=== PATIENT | female | born 1935 | race African-American/Black ===

== ENCOUNTER 2016-08-14 08:30 | Inpatient (IN) | payer BC, OTHER ==
--- NOTE | 2016-08-14 09:05 | PDOC ---
[id number] 4d No Limitations - History of Present Illness Initial Comments: 08/14/16 09:40 The patient is an 81 year old female, with a significant past medical history of anemia, diabetes, hypertension, hypercholesterolemia, and multinodular thyroid goiter, who presents to the emergency department complaining of rectal bleeding for approximately 2 days. The patient reports bright red bloody clots upon bowel movements since yesterday. Today, the patient reports hematochezia continues every time she has a bowel movement. The patient states she has experienced blood clots in the past, secondary to diverticular bleed, for which she followed-up with Dr. Rojas and was placed on coumadin. 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 The patient reports she is currently on coumadin. The patient denies any abdominal pain, nausea, vomiting, diarrhea, or constipation. The patient denies any dysuria, hematuria, frequency, or urgency. The patient denies any fever, chills, cough, headache, or dizziness. The patient denies any chest pain, shortness of breath, diaphoresis, or palpitations. The patient denies any recent travel or sicks contacts. Allergies: Lactose. Past Surgical History: Hysterectomy, (x5) Social History: Non-smoker. Denies alcohol or drug use. PCP: Dr. Whaley Bus Aide: Dr. Rojas <Dariana Colbert - Last Filed: 08/14/16 10:24> <Alisia Salazar - Last Filed: 08/14/16 12:29> - General Chief Complaint: Rectal Bleed Stated Complaint: RECTAL BLEEDING Time Seen by Provider: 08/14/16 08:59 Past History <Dariana Colbert - Last Filed: 08/14/16 10:24> - Past Medical History Anemia: Yes Diabetes: Yes HTN: Yes Hypercholesterolemia: Yes Suicide Attempt (Hx): No - Immunization History Immunization Up to Date: Yes - Psycho/Social/Smoking Cessation Hx Anxiety: No Suicidal Ideation: No Smoking Status: No Smoking History: Never smoked Have you smoked in the past 12 months: No Number of Cigarettes Smoked Daily: 0 Hx Alcohol Use: No Drug/Substance Use Hx: No Substance Use Type: None Hx Substance Use Treatment: No <Alisia Salazar Last Filed: 08/14/16 12:29> - Past Medical History Allergies/Adverse Reactions: Allergies Allergy/AdvReac Type Severity Reaction Status Date / Time lactose AdvReac Severe Verified 08/14/16 08:36 Home Medications: Ambulatory Orders Aspirin [ASA -] 81 mg PO DAILY #0 tab.chew 12/14/11 Folic Acid - 1 mg PO DAILY 07/06/13 Atorvastatin Ca [Lipitor] 10 mg PO HS 07/27/14 Pregabalin [Lyrica -] 50 mg PO TID #90 capsule MDD 3 10/17/15 Amlodipine Besylate [Norvasc -] 10 mg PO DAILY #30 tablet 02/23/16 Glimepiride [Amaryl] 4 mg PO DAILY 08/14/16 Warfarin Na [Coumadin -] 5 mg PO DAILY@1800 08/14/16 Review of Systems - Review of Systems Able to Perform ROS?: Yes Comments:: 08/14/16 09:40 GENERAL/CONSTITUTIONAL: No fever or chills. No weakness. HEAD, EYES, EARS, NOSE AND THROAT: No change in vision. No ear pain or discharge. No sore throat. CARDIOVASCULAR: No chest pain or shortness of breath. RESPIRATORY: No cough, wheezing, or hemoptysis. GASTROINTESTINAL: +Hematochezia(clots). No nausea, vomiting, diarrhea or constipation. GENITOURINARY: No dysuria, frequency, or change in urination. MUSCULOSKELETAL: No joint or muscle swelling or pain. No neck or back pain. SKIN: No rash NEUROLOGIC: No headache, vertigo, loss of consciousness, or change in strength/ sensation. ENDOCRINE: No increased thirst. No abnormal weight change. HEMATOLOGIC/LYMPHATIC: No anemia, easy bleeding, or history of blood clots. ALLERGIC/IMMUNOLOGIC: No hives or skin allergy. <Dariana Colbert - Last Filed: 08/14/16 10:24> *Physical Exam - Vital Signs Last Vital Signs Temp Pulse Resp BP Pulse Ox 98 F 74 19 170/86 96 08/14/16 08:36 08/14/16 08:36 08/14/16 08:36 08/14/16 08:36 08/14/16 08:36 <Dariana Colbert - Last Filed: 08/14/16 10:24> - Vital Signs Last Vital Signs Temp Pulse Resp BP Pulse Ox 98 F 74 19 170/86 96 08/14/16 08:36 08/14/16 08:36 08/14/16 08:36 08/14/16 08:36 08/14/16 08:36 - Physical Exam Comments: GENERAL: Awake, alert, and fully oriented, in no acute distress HEAD: No signs of trauma EYES: PERRLA, EOMI, sclera anicteric, conjunctiva clear ENT: Auricles normal inspection, hearing grossly normal, nares patent, oropharynx clear without exudates. Moist mucosa NECK: Normal ROM, supple, no lymphadenopathy, JVD, or masses LUNGS: Breath sounds equal, clear to auscultation bilaterally. No wheezes, and no crackles HEART: Regular rate and rhythm, normal S1 and S2, no murmurs, rubs or gallops ABDOMEN: Soft, nontender, normoactive bowel sounds. No guarding, no rebound. No masses EXTREMITIES: Normal range of motion, no edema. No clubbing or cyanosis. No cords, erythema, or tenderness NEUROLOGICAL: Cranial nerves II through XII grossly intact. Normal speech, normal gait SKIN: Warm, Dry, normal turgor, no rashes or lesions noted. RECTAL: No external lesions. +Scant melanotic stool in the vault. Nontender. No hemorrhoids. <Alisia Salazar - Last Filed: 08/14/16 12:29> ED Treatment Course - LABORATORY CBC & Chemistry Diagram: 08/14/16 09:20 08/14/16 09:20 - ADDITIONAL ORDERS Additional order review: Laboratory Results 08/14/16 09:10 Stool Occult Blood Positive <Dariana Colbert - Last Filed: 08/14/16 10:24> - LABORATORY CBC & Chemistry Diagram: 08/14/16 09:20 08/14/16 09:20 <Alisia Salazar - Last Filed: 08/14/16 12:29> Medical Decision Making - Medical Decision Making 08/14/16 10:19 First call placed to Dr. Rodriguez at 10:19. Awaiting call back from Dr. Swan. Case discussed with Dr. Swan at 10:22. <Dariana Colbert - Last Filed: 08/14/16 10:24> - Medical Decision Making H&H stable, however, patient is high risk, elderly, on coumadin with history prior diverticular bleed. Will place consult with Dr. Rojas, who has seen her in the past. Admitted to Dr. Swan, covering Dr. Whaley. <Alisia Salazar - Last Filed: 08/14/16 12:29> *DC/Admit/Observation/Transfer - Attestations Scribe Attestion: 08/14/16 09:41 Documentation prepared by Dariana Colbert, acting as emergency medical dispatcher for Alisia Salazar MD. <Dariana Colbert - Last Filed: 08/14/16 10:24> - Discharge Dispostion Admit: Yes <Alisia Salazar - Last Filed: 08/14/16 12:29> Diagnosis at time of Disposition: Rectal bleed, Melena - Discharge Dispostion Condition at time of disposition: Guarded - Referrals
[2016-08-14 09:39] LABS: BASOPHIL 1.3 % (0-2.0); EOSINOPHIL 5.2 % (0-4.5); MCH 24.3 pg (25.7-33.7); MCHC 31.9 g/dl (32.0-36.0); MEAN CELL VOLUME 76.4 fl (80-96); MEAN PLT VOLUME 8.8 fl (7.5-11.1); NEUTROPHILS 45.7 % (42.8-82.8); PLATELET COUNT 211 K/MM3 (134-434); RDW 15.8 % (11.6-15.6); WHITE BLOOD COUNT 3.5 K/mm3 (4.0-10.0)
[2016-08-14 09:53] LABS: INR 2.54 (0.82-1.09); PROTHROMBIN TIME (PATIENT) 28.5 SEC (9.98-11.88)
[2016-08-14 10:03] LABS: ALBUMIN 3.5 g/dl (3.4-5.0); CREATININE 1.1 mg/dL (0.55-1.02)
[2016-08-14 10:04] LABS: BILIRUBIN,TOTAL 0.9 mg/dL (0.2-1.0); TOT PROT 7.6 g/dl (6.4-8.2)
--- NOTE | 2016-08-14 11:56 | HP ---
Admitting History and Physical - Primary Care Physician PCP: Darlin Rodriguez - Admission Chief Complaint: RECTAL BLEED X 1 DAY History of Present Illness: The patient is an 81 year old female, with a significant past medical history of anemia, diabetes, hypertension, hypercholesterolemia, and multinodular thyroid goiter, who presents to the emergency department complaining of rectal bleeding for approximately 2 days. The patient reports bright red bloody clots upon bowel movements since yesterday. Today, the patient reports hematochezia continues every time she has a bowel movement. The patient states she has experienced blood clots in the past, secondary to diverticular bleed, for which she followed-up with Dr. Rojas and was placed on coumadin. 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 The patient reports she is currently on coumadin. The patient denies any abdominal pain, nausea, vomiting, diarrhea, or constipation. The patient denies any dysuria, hematuria, frequency, or urgency. The patient denies any fever, chills, cough, headache, or dizziness. The patient denies any chest pain, shortness of breath, diaphoresis, or palpitations. The patient denies any recent travel or sicks contacts. Allergies: Lactose. Past Surgical History: Hysterectomy, (x5) Social History: Non-smoker. Denies alcohol or drug use. PCP: Dr. Whaley Oncology Admin: Dr. Rojas History Source: Patient - Past Medical History Cardiovascular: Yes: Pulmonary Hypertension, CAD (reported CAD), HTN, Hyperlipdemia, Aortic Insufficiency Pulmonary: Yes: Pulmonary Embolus (following ~50 years ago, and again in 2014 while hospitalzied for shingles per patient's report) Gastrointestinal: Yes: GERD Endocrine: Yes: Diabetes Mellitus, Other (mutlinodular goitre) - Past Surgical History Past Surgical History: Yes: (x5), Hysterectomy (JANINE ~ 40 years ago) - Smoking History Smoking history: Never smoked Have you smoked in the past 12 months: No Aproximately how many cigarettes per day: 0 - Alcohol/Substance Use Hx Alcohol Use: No History of Substance Use: reports: None Home Medications - Allergies Allergies/Adverse Reactions: Allergies Allergy/AdvReac Type Severity Reaction Status Date / Time lactose AdvReac Severe Verified 08/14/16 08:36 - Home Medications Home Medications: Ambulatory Orders Aspirin [ASA -] 81 mg PO DAILY #0 tab.chew 12/14/11 Folic Acid - 1 mg PO DAILY 07/06/13 Atorvastatin Ca [Lipitor] 10 mg PO HS 07/27/14 Pregabalin [Lyrica -] 50 mg PO TID #90 capsule MDD 3 10/17/15 Amlodipine Besylate [Norvasc -] 10 mg PO DAILY #30 tablet 02/23/16 Warfarin Na [Coumadin -] 5 mg PO DAILY@1800 08/14/16 Family Disease History - Family Disease History Family Disease History: Diabetes: Sister, Heart Disease: Brother, [place]: Father ( colon cancer), Sister Review of Systems - Review of Systems Constitutional: reports: No Symptoms Eyes: reports: No Symptoms HENT: reports: No Symptoms Neck: reports: No Symptoms Cardiovascular: reports: No Symptoms Respiratory: reports: No Symptoms Gastrointestinal: reports: Rectal Bleeding Genitourinary: reports: No Symptoms Musculoskeletal: reports: No Symptoms Integumentary: reports: No Symptoms Neurological: reports: No Symptoms Endocrine: reports: No Symptoms Hematology/Lymphatic: reports: No Symptoms Psychiatric: reports: No Symptoms Physical Examination Vital Signs: Vital Signs Temperature 98 F 08/14/16 08:36 Pulse Rate 74 08/14/16 08:36 Respiratory Rate 19 08/14/16 08:36 Blood Pressure 170/86 08/14/16 08:36 O2 Sat by Pulse Oximetry (%) 96 08/14/16 08:36 Constitutional: Yes: Mild Distress Eyes: Yes: WNL HENT: Yes: WNL Neck: Yes: WNL Cardiovascular: Yes: Pulse Irregular Respiratory: Yes: WNL Gastrointestinal: Yes: WNL Renal/: Yes: WNL Musculoskeletal: Yes: WNL Extremities: Yes: WNL Edema: No Peripheral Pulses WNL: Yes Integumentary: Yes: WNL Wound/Incision: Yes: Clean/Dry Neurological: Yes: WNL ...Motor Strength: WNL Psychiatric: Yes: WNL Problem List - Problems (1) Melena Code(s): K92.1 - MELENA (2) Rectal bleed Code(s): K62.5 - HEMORRHAGE OF ANUS AND RECTUM (3) Anemia Code(s): D64.9 - ANEMIA, UNSPECIFIED (4) CAD (coronary artery disease) Code(s): I25.10 - ATHSCL HEART DISEASE OF [place] CORONARY ARTERY W/O ANG PCTRS (5) Diabetes mellitus Code(s): E11.9 - TYPE 2 DIABETES MELLITUS WITHOUT COMPLICATIONS (6) HTN (hypertension) Code(s): I10 - ESSENTIAL (PRIMARY) HYPERTENSION Qualifiers: Assessment/Plan DISCUSSED WITH GI DR MAGUIRE STOP COUMADIN HEPARIN IV GI WORKUP NEXT WEEK FULL DIET RESTART ALL MEDS STOOL FOR OVA AND PARASITE AND WBC
[2016-08-14] MEDS ORDERED: ACETAMINOPHEN 325 MG TABLET (FP) PO PRN (12:00)
[2016-08-14] MEDS: PREGABALIN 50 MG CAPSULE PO SCH ×2 (13:54→22:19)
[2016-08-14] MEDS: amLODIPine BESYLATE 10 MG TABLET (FP) PO SCH (13:54)
--- NOTE | 2016-08-14 13:54 | CON.GI ---
Consult Consult Specialty:: GI Referred by:: Dr Swan Reason for Consultation:: GI bleed - History of Present Illness Chief Complaint: melena History of Present Illness: 81 F with h/o anemia, DM, HTN, HLD, goiter admitted with a 2 day h/o blood with stool for the past few days. She states her last episode was this AM. On admission, her Hgb was 11. She had a diverticular bleed 2 years ago and had colonoscopy with endoclip placement done with cessation of the bleeding. She had R jugular thombosis in 2016 and has been on coumadin since. coumadin. INR was 2.5 on admission. - Past Medical History Cardio/Vascular: Yes: Pulmonary Hypertension, CAD (reported CAD), HTN, Hyperlipdemia, Aortic Insufficiency Pulmonary: Yes: Pulmonary Embolus (following ~50 years ago, and again in 2013 while hospitalzied for shingles per patient's report) Gastrointestinal: Yes: GERD Endocrine: Yes: Diabetes Mellitus, Other (mutlinodular goitre) - Past Surgical History Past Surgical History: Yes: (x5), Hysterectomy (JANINE ~ 40 years ago) - Alcohol/Substance Use Hx Alcohol Use: No History of Substance Use: reports: None - Smoking History Smoking history: Never smoked Have you smoked in the past 12 months: No Aproximately how many cigarettes per day: 0 Home Medications - Allergies Allergies/Adverse Reactions: Allergies Allergy/AdvReac Type Severity Reaction Status Date / Time lactose AdvReac Severe Verified 08/14/16 08:36 - Home Medications Home Medications: Ambulatory Orders Aspirin [ASA -] 81 mg PO DAILY #0 tab.chew 12/14/11 Folic Acid - 1 mg PO DAILY 07/06/13 Atorvastatin Ca [Lipitor] 10 mg PO HS 07/27/14 Pregabalin [Lyrica -] 50 mg PO TID #90 capsule MDD 3 10/17/15 Amlodipine Besylate [Norvasc -] 10 mg PO DAILY #30 tablet 02/23/16 Glimepiride [Amaryl] 4 mg PO DAILY 08/14/16 Warfarin Na [Coumadin -] 5 mg PO DAILY@1800 08/14/16 Family Disease History - Family Disease History Family Disease History: Diabetes: Sister, Heart Disease: Brother, CA: Father ( colon cancer), Sister Physical Exam-GI Vital Signs: Vital Signs Temperature 98 F 08/14/16 08:36 Pulse Rate 74 08/14/16 08:36 Respiratory Rate 19 08/14/16 08:36 Blood Pressure 170/86 08/14/16 08:36 O2 Sat by Pulse Oximetry (%) 96 08/14/16 08:36 Constitutional: Yes: Well Nourished, Calm HENT: Yes: Normocephalic Cardiovascular: Yes: Regular Rate and Rhythm Respiratory: Yes: CTA Bilaterally Gastrointestinal Inspection: Yes: WNL ...Auscultate: Yes: Normoactive Bowel Sounds ...Palpate: Yes: Soft. No: Tenderness (in all quadrants) ...Rectal Exam: Yes: Guaiac Positive (in ER) Labs: INR, PTT INR 2.54 (0.82-1.09) H 08/14/16 09:20 CBC, BMP 08/14/16 09:20 08/14/16 09:20 Hepatic Panel Total Bilirubin 0.9 mg/dL (0.2-1.0) D 08/14/16 09:20 AST 16 U/L (15-37) D 08/14/16 09:20 ALT 17 U/L (12-78) D 08/14/16 09:20 Alkaline Phosphatase 91 U/L (45-117) D 08/14/16 09:20 Albumin 3.5 g/dl (3.4-5.0) 08/14/16 09:20 Assessment/Plan No active bleeding at this time. Likely diverticular source. Will manage conservatively for now. No transfusion at this time. If bleeding continues or resumes will need colonoscopy Revert diet to clear liquid at this time as emergent procedure might be necessary.
[2016-08-14] MEDS ORDERED: PANTOPRAZOLE SODIUM 40 MG in SODIUM CHLORIDE 100 ML IVPB SCH (14:15)
[2016-08-14] MEDS: PANTOPRAZOLE SODIUM 40 MG/100 ML PRE-DOCKED IVPB SCH (15:45)
[2016-08-14 17:44] VITALS: BMI 30.2
[2016-08-14 18:13] LABS: BASOPHIL 0.9 % (0-2.0); EOSINOPHIL 4.1 % (0-4.5); MCH 24.4 pg (25.7-33.7); MEAN CELL VOLUME 76.3 fl (80-96); MEAN PLT VOLUME 8.8 fl (7.5-11.1); NEUTROPHILS 39.4 % (42.8-82.8); PLATELET COUNT 215 K/MM3 (134-434); RDW 15.9 % (11.6-15.6); WHITE BLOOD COUNT 3.9 K/mm3 (4.0-10.0)
[2016-08-14] MEDS: ATORVASTATIN CA 20 MG TABLET (FP) PO SCH (22:19)
[2016-08-15] MEDS: GLIMEPIRIDE 4 MG TABLET (FP) PO SCH (06:35)
[2016-08-15 07:33] LABS: MCH 24.4 pg (25.7-33.7); MCHC 31.8 g/dl (32.0-36.0); MEAN CELL VOLUME 76.6 fl (80-96); MEAN PLT VOLUME 8.8 fl (7.5-11.1); PLATELET COUNT 218 K/MM3 (134-434); RDW 16.1 % (11.6-15.6); WHITE BLOOD COUNT 2.9 K/mm3 (4.0-10.0)
[2016-08-15 07:46] LABS: INR 2.23 (0.82-1.09); PROTHROMBIN TIME (PATIENT) 24.9 SEC (9.98-11.88)
[2016-08-15 08:00] LABS: ALBUMIN 3.4 g/dl (3.4-5.0); CALCIUM 8.6 mg/dL (8.5-10.1)
[2016-08-15 08:02] LABS: BILIRUBIN,TOTAL 0.8 mg/dL (0.2-1.0); TOT PROT 6.9 g/dl (6.4-8.2)
[2016-08-15] MEDS: amLODIPine BESYLATE 10 MG TABLET (FP) PO SCH (09:50)
[2016-08-15] MEDS: PANTOPRAZOLE SODIUM 40 MG/100 ML PRE-DOCKED IVPB SCH (09:50)
[2016-08-15] MEDS: PREGABALIN 50 MG CAPSULE PO SCH ×2 (09:50→21:28)
--- NOTE | 2016-08-15 13:20 | PN ---
Progress Note, Physician Chief Complaint: AWAKE ALERT +BM WITH DARK RED BLOOD FOUND IN TOILET TODAY - Current Medication List Current Medications: Active Medications Acetaminophen (Tylenol -) 650 mg PO Q6H PRN PRN Reason: FEVER OR PAIN Amlodipine Besylate (Norvasc -) 10 mg PO DAILY [facility] Last Admin: 08/15/16 09:50 Dose: 10 mg Atorvastatin Calcium (Lipitor -) 20 mg PO HS [facility] Last Admin: 08/14/16 22:19 Dose: 20 mg Glimepiride (Amaryl -) 4 mg PO DAILY@0700 [facility] Last Admin: 08/15/16 06:35 Dose: 4 mg Pantoprazole Sodium (Protonix 40mg Ivpb (Pre-Docked)) 40 mg IVPB DAILY [facility] Last Admin: 08/15/16 09:50 Dose: 40 mg Pregabalin (Lyrica -) 50 mg PO BID [facility] Last Admin: 08/15/16 09:50 Dose: 50 mg - Objective Vital Signs: Vital Signs Temperature 98.6 F 08/15/16 09:39 Pulse Rate 72 08/15/16 09:39 Respiratory Rate 18 08/15/16 09:39 Blood Pressure 138/76 08/15/16 09:39 O2 Sat by Pulse Oximetry (%) 98 08/15/16 09:50 Constitutional: Yes: Mild Distress Eyes: Yes: WNL HENT: Yes: WNL Neck: Yes: WNL Cardiovascular: Yes: Pulse Irregular Respiratory: Yes: WNL Gastrointestinal: Yes: WNL ...Rectal Exam: Yes: Guaiac Positive Genitourinary: Yes: WNL Musculoskeletal: Yes: Muscle Weakness Extremities: Yes: WNL Edema: No Peripheral Pulses WNL: Yes Integumentary: Yes: WNL Wound/Incision: Yes: Clean/Dry Neurological: Yes: WNL ...Motor Strength: WNL Psychiatric: Yes: WNL Labs: CBC, BMP 08/15/16 06:15 08/15/16 06:15 INR, PTT INR 2.23 (0.82-1.09) H 08/15/16 06:15 Problem List - Problems (1) Melena Code(s): K92.1 - MELENA (2) Rectal bleed Code(s): K62.5 - HEMORRHAGE OF ANUS AND RECTUM (3) Anemia Code(s): D64.9 - ANEMIA, UNSPECIFIED (4) CAD (coronary artery disease) Code(s): I25.10 - ATHSCL HEART DISEASE OF [place] CORONARY ARTERY W/O ANG PCTRS (5) Diabetes mellitus Code(s): E11.9 - TYPE 2 DIABETES MELLITUS WITHOUT COMPLICATIONS (6) HTN (hypertension) Code(s): I10 - ESSENTIAL (PRIMARY) HYPERTENSION Qualifiers: Assessment/Plan DISCUSSED WITH GI DR MAGUIRE STOP COUMADIN HEPARIN IV WHEN INR LESS THAN 2.0 GI WORKUP NEXT WEEK CLEAR RESTART ALL MEDS STOOL FOR OVA AND PARASITE AND WBC
[2016-08-15] MEDS ORDERED: HEPARIN INFUSION - 500 ML IVPB SCH (13:30)
[2016-08-15] MEDS: HEPARIN INFUSION - 500 ML IVPB SCH (18:50)
--- NOTE | 2016-08-15 21:22 | EKG ---
Test Reason : Blood Pressure : / mmHG Vent. Rate : 065 BPM Atrial Rate : 065 BPM P-R Int : 202 ms QRS Dur : 074 ms QT Int : 452 ms P-R-T Axes : 028 -18 -05 degrees QTc Int : 470 ms NORMAL SINUS RHYTHM with prolonged AV conduction T-WAVE INVERSION IN ANTERIOR LEADS T WAVE FLATTENING IN INFEROLATERAL LEADS INFERIOR INFARCT , AGE UNDETERMINED ABNORMAL ECG WHEN COMPARED WITH ECG OF 11-FEB-2016 22:23, [place] INTERVAL HAS DECREASED FLAT T WAVES NOW EVIDENT IN LATERAL LEADS Confirmed by LEA MODI, ERIKA ([id number]) on 08/15/2016 9:22:38 PM Referred By: Confirmed By:ERIKA TATE MD
[2016-08-15] MEDS: ATORVASTATIN CA 20 MG TABLET (FP) PO SCH (21:28)
--- NOTE | 2016-08-16 01:49 | CONSULT ---
Consult Consult Specialty:: endocrine Referred by:: dr.rabadi robles Reason for Consultation:: thyroid goiter/niddm - History of Present Illness Chief Complaint: bleeding from stools History of Present Illness: 81 F with h/o anemia, DM, HTN, HLD, goiter admitted with a 2 day h/o blood with stool for the past few days. She states her last episode was this AM. On admission, her Hgb was 11. She had a diverticular bleed 2 years ago and had colonoscopy with endoclip placement done with cessation of the bleeding. She had R jugular thombosis in 2016 and has been on coumadin since. coumadin. INR was 2.5 on admission.denies chest pain,palpitation,cough,fever or chills,denies taking nsaids,or pain relief meds over the counter is always adherent to diet and meds - History Source History Provided By: Patient - Past Medical History Cardio/Vascular: Yes: Pulmonary Hypertension, CAD (reported CAD), HTN, Hyperlipdemia, Aortic Insufficiency Pulmonary: Yes: Pulmonary Embolus (following ~50 years ago, and again in 2013 while hospitalzied for shingles per patient's report) Gastrointestinal: Yes: GERD Endocrine: Yes: Diabetes Mellitus, Other (mutlinodular goitre) - Past Surgical History Past Surgical History: Yes: (x5), Hysterectomy (JANINE ~ 40 years ago) - Alcohol/Substance Use Hx Alcohol Use: No History of Substance Use: reports: None - Smoking History Smoking history: Never smoked Have you smoked in the past 12 months: No Aproximately how many cigarettes per day: 0 Home Medications - Allergies Allergies/Adverse Reactions: Allergies Allergy/AdvReac Type Severity Reaction Status Date / Time lactose AdvReac Severe Verified 08/14/16 08:36 - Home Medications Home Medications: Ambulatory Orders Aspirin [ASA -] 81 mg PO DAILY #0 tab.chew 12/14/11 Folic Acid - 1 mg PO DAILY 07/06/13 Atorvastatin Ca [Lipitor] 10 mg PO HS 07/27/14 Pregabalin [Lyrica -] 50 mg PO TID #90 capsule MDD 3 10/17/15 Amlodipine Besylate [Norvasc -] 10 mg PO DAILY #30 tablet 02/23/16 Glimepiride [Amaryl] 4 mg PO DAILY 08/14/16 Warfarin Na [Coumadin -] 5 mg PO DAILY@1800 08/14/16 Family Disease History - Family Disease History Family Disease History: Diabetes: Sister, Heart Disease: Brother, CA: Father ( colon cancer), Sister Review of Systems - Review of Systems Constitutional: reports: Weakness Eyes: reports: No Symptoms HENT: reports: No Symptoms Neck: reports: No Symptoms Cardiovascular: reports: No Symptoms Respiratory: reports: No Symptoms Gastrointestinal: reports: Indigestion Genitourinary: reports: No Symptoms Breasts: reports: No Symptoms Reported Musculoskeletal: reports: No Symptoms Integumentary: reports: No Symptoms Neurological: reports: No Symptoms Endocrine: reports: No Symptoms Physical Exam Vital Signs: Vital Signs Temperature 98.2 F 08/15/16 21:34 Pulse Rate 68 08/15/16 21:34 Respiratory Rate 20 08/15/16 21:34 Blood Pressure 154/82 08/15/16 21:34 O2 Sat by Pulse Oximetry (%) 98 08/15/16 18:00 Constitutional: Yes: Calm Eyes: Yes: EOM Intact HENT: Yes: Normocephalic Neck: Yes: Thyromegaly Cardiovascular: Yes: Regular Rate and Rhythm, Murmur Respiratory: Yes: Regular Gastrointestinal: Yes: WNL ...Rectal Exam: Yes: Guaiac Positive Renal/: Yes: WNL Breast(s): Yes: WNL Musculoskeletal: Yes: WNL Extremities: Yes: WNL Edema: No Peripheral Pulses WNL: Yes Neurological: Yes: WNL, Alert, Oriented Labs: CBC, BMP 08/15/16 06:15 08/15/16 06:15 Problem List - Problems (1) Melena Code(s): K92.1 - [place]LENA (2) Anemia Code(s): D64.9 - ANEMIA, UNSPECIFIED (3) Goiter diffuse Code(s): E04.9 - NONTOXIC GOITER, UNSPECIFIED (4) Type 2 diabetes mellitus with diabetic neuropathy, unspecified Code(s): E11.40 - TYPE 2 DIABETES MELLITUS WITH DIABETIC NEUROPATHY, UNSP Assessment/Plan Current Active Problems Melena (Acute) Rectal bleed (Acute) thyroid goiter diabetes mellitus niddm/neuropathy hyperglycemia ashd sp/thrombosis jugular vein Abnormal Lab Results 03/05/17 03/05/17 03/05/17 06:15 06:15 06:15 WBC 2.9 L MCV 76.6 L MCHC 31.8 L RDW 16.1 H INR 2.23 H Random Glucose 125 H AST 13 L Laboratory Results - last 24 hr 08/15/16 08/15/16 08/15/16 05:46 06:15 06:15 WBC 2.9 L RBC 4.66 Hgb 11.4 Hct 35.7 MCV 76.6 L MCHC 31.8 L RDW 16.1 H Plt Count 218 MPV 8.8 INR Sodium 142 Potassium 3.8 Chloride 106 Carbon Dioxide 28 Anion Gap 8 BUN 10 Creatinine 1.0 Creat Clearance w eGFR 52.95 POC Glucometer 126 Random Glucose 125 H Calcium 8.6 Total Bilirubin 0.8 AST 13 L ALT 15 Alkaline Phosphatase 80 Total Protein 6.9 Albumin 3.4 08/15/16 06:15 WBC RBC Hgb Hct MCV MCHC RDW Plt Count MPV INR 2.23 H Sodium Potassium Chloride Carbon Dioxide Anion Gap BUN Creatinine Creat Clearance w eGFR POC Glucometer Random Glucose Calcium Total Bilirubin AST ALT Alkaline Phosphatase Total Protein Albumin Current Medications Generic Name Dose Route Start Last Admin Trade Name Freq PRN Reason Stop Dose Admin Acetaminophen 650 mg 08/14/16 12:00 Tylenol - PO Q6H PRN FEVER OR PAIN Amlodipine Besylate 10 mg 08/14/16 12:00 08/15/16 09:50 Norvasc - PO 10 mg DAILY [facility] Administration Atorvastatin Calcium 20 mg 08/14/16 22:00 08/15/16 21:28 Lipitor - PO 20 mg HS [facility] Administration Glimepiride 4 mg 08/15/16 07:00 08/15/16 06:35 Amaryl - PO 4 mg DAILY@0700 [facility] Administration Heparin Sodium/Dextrose 500 mls @ 16 mls/hr 08/15/16 18:30 08/15/16 18:50 Heparin Infusion - IVPB 16 mls/hr TITR [facility] Administration Protocol 800 UNITS/HR Pantoprazole Sodium 40 mg 08/14/16 15:00 08/15/16 09:50 Protonix 40mg Ivpb (Pre-Docked) IVPB 40 mg DAILY [facility] Administration Pregabalin 50 mg 08/14/16 12:00 08/15/16 21:28 Lyrica - PO 50 mg BID [facility] Administration plan: bgm qid novolog coverage continue amaryl 4mg daily gi workup in progress
[2016-08-16] MEDS: INSULIN SLIDING SCALE (NOVOLOG) 1 VIAL SQ SCH ×4 (06:17→21:55)
[2016-08-16] MEDS ORDERED: PT OWN MED DRAWER 7, Y5N ONE (06:18)
[2016-08-16] MEDS: GLIMEPIRIDE 4 MG TABLET (FP) PO SCH (06:19)
[2016-08-16 07:37] LABS: MCH 24.5 pg (25.7-33.7); MCHC 31.9 g/dl (32.0-36.0); MEAN CELL VOLUME 76.7 fl (80-96); MEAN PLT VOLUME 8.8 fl (7.5-11.1); PLATELET COUNT 235 K/MM3 (134-434); RDW 15.3 % (11.6-15.6)
[2016-08-16 08:05] LABS: CREATININE 1.1 mg/dL (0.55-1.02)
--- NOTE | 2016-08-16 08:15 | PN ---
Progress Note, Physician History of Present Illness: ADMITTED WITH MELENA NO PAIN - Current Medication List Current Medications: Active Medications Acetaminophen (Tylenol -) 650 mg PO Q6H PRN PRN Reason: FEVER OR PAIN Amlodipine Besylate (Norvasc -) 10 mg PO DAILY ON LICENSE OF [facility] Last Admin: 08/15/16 09:50 Dose: 10 mg Atorvastatin Calcium (Lipitor -) 20 mg PO HS ON LICENSE OF [facility] Last Admin: 08/15/16 21:28 Dose: 20 mg Glimepiride (Amaryl -) 4 mg PO DAILY@0700 ON LICENSE OF [facility] Last Admin: 08/16/16 06:19 Dose: 4 mg Heparin Sodium/Dextrose (Heparin Infusion -) 500 mls @ 16 mls/hr IVPB TITR [facility] ; 800 UNITS/HR PRN Reason: Protocol Last Admin: 08/15/16 18:50 Dose: 16 mls/hr Insulin Aspart (Novolog Vial Sliding Scale -) 1 vial SQ ACHS ON LICENSE OF [facility] PRN Reason: Protocol Last Admin: 08/16/16 06:17 Dose: Not Given Pantoprazole Sodium (Protonix 40mg Ivpb (Pre-Docked)) 40 mg IVPB DAILY ON LICENSE OF [facility] Last Admin: 08/15/16 09:50 Dose: 40 mg Pregabalin (Lyrica -) 50 mg PO BID ON LICENSE OF [facility] Last Admin: 08/15/16 21:28 Dose: 50 mg - Objective Vital Signs: Vital Signs Temperature 98.1 F 08/16/16 06:00 Pulse Rate 67 08/16/16 06:00 Respiratory Rate 20 08/16/16 06:00 Blood Pressure 138/82 08/16/16 06:00 O2 Sat by Pulse Oximetry (%) 97 08/16/16 02:00 Cardiovascular: Yes: Regular Rate and Rhythm Respiratory: Yes: Regular, CTA Bilaterally Gastrointestinal: Yes: Normal Bowel Sounds, Soft Labs: CBC, BMP 08/16/16 06:00 INR, PTT INR 2.23 (0.82-1.09) H 08/15/16 06:15 Problem List - Problems (1) Melena Assessment/Plan: GI W/U --FOR ENDOSCOPY AWAIT CBC HOLD COUMADIN ON HEPARIN Code(s): K92.1 - MELENA (2) Type 2 diabetes mellitus with diabetic neuropathy, unspecified Assessment/Plan: BGM Code(s): E11.40 - TYPE 2 DIABETES MELLITUS WITH DIABETIC NEUROPATHY, UNSP (3) Diabetes mellitus Assessment/Plan: BGM Code(s): E11.9 - TYPE 2 DIABETES MELLITUS WITHOUT COMPLICATIONS (4) Jugular vein thrombosis, right Assessment/Plan: HEPARIN AND COUMADIN Code(s): I82.890 - ACUTE EMBOLISM AND THROMBOSIS OF OTHER SPECIFIED VEINS
[2016-08-16 09:16] LABS: INR 1.99 (0.82-1.09); PROTHROMBIN TIME (PATIENT) 22.2 SEC (9.98-11.88)
[2016-08-16 09:38] LABS: FERRITIN 93.646 ng/ml (6.9-282.5)
[2016-08-16] MEDS: amLODIPine BESYLATE 10 MG TABLET (FP) PO SCH (09:49)
[2016-08-16] MEDS: PREGABALIN 50 MG CAPSULE PO SCH ×2 (09:50→21:51)
--- NOTE | 2016-08-16 15:49 | CONSULT ---
Consult - text type - Consultation Consultation Note: The patient is an 81 year old female, with a significant past medical history of anemia, diabetes, hypertension, hypercholesterolemia, and multinodular thyroid goiter, who presents to the emergency department complaining of rectal bleeding for approximately 2 days. The patient states she has experienced blood clots in the past, secondary to diverticular bleed, for which she followed-up with Dr. Rojas. 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 The patient reports she is currently on coumadin. The patient denies any abdominal pain, nausea, vomiting, diarrhea, or constipation. The patient denies any dysuria, hematuria, frequency, or urgency. The patient denies any fever, chills, cough, headache, or dizziness. The patient denies any chest pain , shortness of breath, diaphoresis, or palpitations. Allergies: Lactose. Past Surgical History: Hysterectomy, (x5) Social History: Non-smoker. Denies alcohol or drug use. 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 - Psycho/Social/Smoking Cessation Hx Smoking History: Never smoked - Past Medical History Allergies/Adverse Reactions: Allergies Allergy/AdvReac Type Severity Reaction Status Date / Time lactose AdvReac Severe Verified 08/14/16 08:36 Home Medications: Ambulatory Orders Aspirin [ASA -] 81 mg PO DAILY #0 tab.chew 12/14/11 Folic Acid - 1 mg PO DAILY 07/06/13 Atorvastatin Ca [Lipitor] 10 mg PO HS 07/27/14 Pregabalin [Lyrica -] 50 mg PO TID #90 capsule MDD 3 10/17/15 Amlodipine Besylate [Norvasc -] 10 mg PO DAILY #30 tablet 02/23/16 Glimepiride [Amaryl] 4 mg PO DAILY 08/14/16 Warfarin Na [Coumadin -] 5 mg PO DAILY@1800 08/14/16 Current Medications Acetaminophen (Tylenol -) 650 mg PO Q6H PRN PRN Reason: FEVER OR PAIN Amlodipine Besylate (Norvasc -) 10 mg PO DAILY [facility] Last Admin: 08/16/16 09:49 Dose: 10 mg Atorvastatin Calcium (Lipitor -) 20 mg PO HS [facility] Last Admin: 08/15/16 21:28 Dose: 20 mg Glimepiride (Amaryl -) 4 mg PO DAILY@0700 [facility] Last Admin: 08/16/16 06:19 Dose: 4 mg Heparin Sodium/Dextrose (Heparin Infusion -) 500 mls @ 16 mls/hr IVPB TITR AD[facility] ; 800 UNITS/HR PRN Reason: Protocol Last Admin: 08/15/16 18:50 Dose: 16 mls/hr Insulin Aspart (Novolog Vial Sliding Scale -) 1 vial SQ ACHS [facility] PRN Reason: Protocol Last Admin: 08/16/16 12:37 Dose: Not Given Pantoprazole Sodium (Protonix 40mg Ivpb (Pre-Docked)) 40 mg IVPB DAILY [facility] Last Admin: 08/15/16 09:50 Dose: 40 mg Pregabalin (Lyrica -) 50 mg PO BID [facility] Last Admin: 08/16/16 09:50 Dose: 50 mg - Vital Signs Last Vital Signs Temp Pulse Resp BP Pulse Ox 97.7 F 70 20 125/77 97 08/16/16 13:42 08/16/16 13:42 08/16/16 13:42 08/16/16 13:42 08/16/16 10:00 Cor: RSR, No murmurs, No gallops Lungs: Clear to P&A Abd: Soft, Normal bowel sounds, No organomegaly Ext:No significant edema Abnormal Lab Results 08/16/16 08/16/16 08/16/16 00:35 06:00 06:00 WBC 3.0 L MCV 76.7 L MCHC 31.9 L INR PTT (Actin FS) > 400.0 H Creatinine 1.1 H Random Glucose 145 H 08/16/16 08/16/16 06:00 06:00 WBC MCV MCHC INR 1.99 H PTT (Actin FS) 41.6 H D Creatinine Random Glucose A/P 80 y/o female with DM, HLD,HTN, multi nodular goiter, CAD, h/p PE x2 , provoked , and unprovoked rt. internal jugular vein thrombosis CTA of chest/neck 02/26-----prominent jugular vein without enhancement of jugular /carotid chronic residual segmental/subsegmental PE thrombophilia w/u --prothrombin gene [id number], Factor V leiden, LAC wereneg. in past. cant check Protein C/SATIII at this time due to heparin/coumadin Anemia -- now with bleeding per rectum ? diverticular bleed to decide on risks/benefits of a/c --will disucss with gi team.
[2016-08-16] MEDS: PANTOPRAZOLE SODIUM 40 MG/100 ML PRE-DOCKED IVPB SCH (18:17)
[2016-08-16] MEDS: HEPARIN INFUSION - 500 ML IVPB SCH (19:31)
[2016-08-16] MEDS: ATORVASTATIN CA 20 MG TABLET (FP) PO SCH (21:51)
[2016-08-17 06:06] LABS: SERUM IRON 57 ug/dL (27-139); TOTAL IRON BINDING CAPACITY 258 ug/dL (250-450); UIBC 201 ug/dL (118-369)
[2016-08-17] MEDS: GLIMEPIRIDE 4 MG TABLET (FP) PO SCH (06:17)
[2016-08-17] MEDS: INSULIN SLIDING SCALE (NOVOLOG) 1 VIAL SQ SCH ×4 (06:24→22:03)
[2016-08-17 08:05] LABS: MCH 24.2 pg (25.7-33.7); MCHC 31.9 g/dl (32.0-36.0); MEAN PLT VOLUME 9.1 fl (7.5-11.1); PLATELET COUNT 222 K/MM3 (134-434); RDW 15.5 % (11.6-15.6); WHITE BLOOD COUNT 3.4 K/mm3 (4.0-10.0)
[2016-08-17 08:42] LABS: ALBUMIN 3.8 g/dl (3.4-5.0); CALCIUM 9.2 mg/dL (8.5-10.1)
[2016-08-17 08:46] LABS: BILIRUBIN,TOTAL 0.8 mg/dL (0.2-1.0); CREATININE 0.9 mg/dL (0.55-1.02); TOT PROT 7.6 g/dl (6.4-8.2)
[2016-08-17 09:33] LABS: INR 1.88 (0.82-1.09)
[2016-08-17] MEDS: amLODIPine BESYLATE 10 MG TABLET (FP) PO SCH (10:14)
[2016-08-17] MEDS: PREGABALIN 50 MG CAPSULE PO SCH ×2 (10:15→22:03)
[2016-08-17] MEDS: PANTOPRAZOLE 40 MG TABLET (FP) PO SCH (10:15)
[2016-08-17] MEDS: HEPARIN INFUSION - 500 ML IVPB SCH ×2 (12:40→18:48)
--- NOTE | 2016-08-17 12:52 | PN ---
Progress Note, Physician Chief Complaint: yesterday had dark BM which is occult positive on heparin drip on clear liquid diet will get back GI to see patient h/h is stable - Current Medication List Current Medications: Active Medications Acetaminophen (Tylenol -) 650 mg PO Q6H PRN PRN Reason: FEVER OR PAIN Amlodipine Besylate (Norvasc -) 10 mg PO DAILY [facility] Last Admin: 08/17/16 10:14 Dose: 10 mg Atorvastatin Calcium (Lipitor -) 20 mg PO HS [facility] Last Admin: 08/16/16 21:51 Dose: 20 mg Glimepiride (Amaryl -) 4 mg PO DAILY@0700 [facility] Last Admin: 08/17/16 06:17 Dose: 4 mg Heparin Sodium/Dextrose (Heparin Infusion -) 500 mls @ 16 mls/hr IVPB TITR AD[facility] ; 800 UNITS/HR PRN Reason: Protocol Last Admin: 08/17/16 12:40 Dose: 8 mls/hr Insulin Aspart (Novolog Vial Sliding Scale -) 1 vial SQ ACHS [facility] PRN Reason: Protocol Last Admin: 08/17/16 12:04 Dose: Not Given Pantoprazole Sodium (Protonix -) 40 mg PO DAILY [facility] Last Admin: 08/17/16 10:15 Dose: 40 mg Pregabalin (Lyrica -) 50 mg PO BID [facility] Last Admin: 08/17/16 10:15 Dose: 50 mg - Objective Vital Signs: Vital Signs Temperature 97.7 F 08/17/16 10:00 Pulse Rate 76 08/17/16 10:00 Respiratory Rate 18 08/17/16 10:00 Blood Pressure 107/66 08/17/16 10:00 O2 Sat by Pulse Oximetry (%) 95 08/17/16 10:00 Constitutional: Yes: Calm Cardiovascular: Yes: Regular Rate and Rhythm, S1, S2 Respiratory: Yes: CTA Bilaterally Gastrointestinal: Yes: Normal Bowel Sounds, Soft Extremities: Yes: Other (fly pineda) Neurological: Yes: Alert, Oriented Labs: CBC, BMP 08/17/16 06:00 08/17/16 06:00 INR, PTT INR 1.88 (0.82-1.09) H 08/17/16 06:00 Problem List - Problems (1) Rectal bleed Assessment/Plan: guaicic positive yesterday stool Gi follow up with dr franco ppi h/h holding Code(s): K62.5 - HEMORRHAGE OF ANUS AND RECTUM (2) Guaiac + stool Assessment/Plan: see 1 Code(s): R19.5 - OTHER FECAL ABNORMALITIES (3) HLD (hyperlipidemia) Assessment/Plan: statin Code(s): E78.5 - HYPERLIPIDEMIA, UNSPECIFIED (4) HTN (hypertension) Assessment/Plan: stable Code(s): I10 - ESSENTIAL (PRIMARY) HYPERTENSION Qualifiers: (5) Jugular vein thrombosis, right Assessment/Plan: ellenamjewel on hold on heparin drip Code(s): I82.890 - ACUTE EMBOLISM AND THROMBOSIS OF OTHER SPECIFIED VEINS (6) Type 2 diabetes mellitus with diabetic neuropathy, unspecified Assessment/Plan: lyrica and amaryl Code(s): E11.40 - TYPE 2 DIABETES MELLITUS WITH DIABETIC NEUROPATHY, UNSP
--- NOTE | 2016-08-17 17:29 | PN ---
Progress Note (short form) - Note Progress Note: Patient seen and examined Some dark stool - heme positive No plans for colonoscopy To continue with a/c with coumadin Last Vital Signs Temp Pulse Resp BP Pulse Ox 97.5 F L 83 20 127/75 95 08/17/16 14:26 08/17/16 14:26 08/17/16 14:26 08/17/16 14:26 08/17/16 10:00 HEENT: BETH, EOM Intact Cor: RSR, No murmurs, No gallops Lungs: Clear to P&A Abd: Soft, Normal bowel sounds, No organomegaly Ext:No significant edema; LLE swelling Skin: No rashes, Integument intact CBC, BMP 08/17/16 06:00 08/17/16 06:00 Current Medications Generic Name Dose Route Start Last Admin Trade Name Freq PRN Reason Stop Dose Admin Acetaminophen 650 mg 08/14/16 12:00 Tylenol - PO Q6H PRN FEVER OR PAIN Amlodipine Besylate 10 mg 08/14/16 12:00 08/17/16 10:14 Norvasc - PO 10 mg DAILY [facility] Administration Atorvastatin Calcium 20 mg 08/14/16 22:00 08/16/16 21:51 Lipitor - PO 20 mg HS [facility] Administration Glimepiride 4 mg 08/15/16 07:00 08/17/16 06:17 Amaryl - PO 4 mg DAILY@0700 [facility] Administration Heparin Sodium/Dextrose 500 mls @ 16 mls/hr 08/15/16 18:30 08/17/16 12:40 Heparin Infusion - IVPB 8 mls/hr TITR [facility] Administration Protocol 800 UNITS/HR Insulin Aspart 1 vial 08/16/16 07:00 08/17/16 12:04 Novolog Vial Sliding Scale - SQ Not Given ACHS [facility] Protocol Pantoprazole Sodium 40 mg 08/17/16 10:00 08/17/16 10:15 Protonix - PO 40 mg DAILY [facility] Administration Pregabalin 50 mg 08/14/16 12:00 08/17/16 10:15 Lyrica - PO 50 mg BID [facility] Administration Warfarin Sodium 5 mg 08/17/16 18:00 Coumadin - PO DAILY@1800 [facility] Impression: GI bleed A?C Hx of provoked and unprovoked DVT Leukopenia Plan Heparin - bridge to coumadi. F/U WBC
[2016-08-17] MEDS: WARFARIN NA 5 MG TABLET (UD) PO SCH (17:30)
--- NOTE | 2016-08-17 21:15 | PN ---
GI Progress Note Subjective: No new bleeding Patient comfortable. Wants to know if she can exercise when she gets home. - Objective Vital Signs: Vital Signs Temperature 97.2 F L 08/17/16 18:28 Pulse Rate 65 08/17/16 18:28 Respiratory Rate 18 08/17/16 18:28 Blood Pressure 129/79 08/17/16 18:28 O2 Sat by Pulse Oximetry (%) 95 08/17/16 18:00 Constitutional: Well Nourished HENT: Yes: Normocephalic Neck: Yes: Supple Cardiovascular: Yes: Regular Rate and Rhythm Respiratory: Yes: CTA Bilaterally Gastrointestinal Inspection: Yes: WNL ...Auscultate: Yes: Normoactive Bowel Sounds ...Palpate: Yes: Hepatomegaly, Soft. No: Tenderness Labs: CBC, BMP 08/17/16 06:00 08/17/16 06:00 INR, PTT INR 1.88 (0.82-1.09) H 08/17/16 06:00 Assessment/Plan No active bleeding at this time. Likely diverticular source. Will continue to manage conservatively. Hgb stable (12) If bleeding resumes will need colonoscopy Tolerating diabetic diet at this time
[2016-08-17] MEDS: ATORVASTATIN CA 20 MG TABLET (FP) PO SCH (22:03)
[2016-08-18] MEDS ORDERED: PT OWN MED DRAWER 7, Y5N ONE (05:48)
[2016-08-18] MEDS: GLIMEPIRIDE 4 MG TABLET (FP) PO SCH (06:56)
[2016-08-18] MEDS: INSULIN SLIDING SCALE (NOVOLOG) 1 VIAL SQ SCH ×4 (06:57→22:27)
--- NOTE | 2016-08-18 07:50 | DS ---
Physical Examination Vital Signs: Vital Signs Temperature 97.5 F L 08/18/16 02:00 Pulse Rate 66 08/18/16 02:00 Respiratory Rate 18 08/18/16 02:00 Blood Pressure 118/50 08/18/16 02:00 O2 Sat by Pulse Oximetry (%) 95 08/17/16 18:00 Neck: Yes: Supple Cardiovascular: Yes: Regular Rate and Rhythm Respiratory: Yes: Regular, CTA Bilaterally Gastrointestinal: Yes: Normal Bowel Sounds, Soft. No: Tenderness Labs: CBC, BMP 08/17/16 06:00 Discharge Summary Reason For Visit: RECTAL BLEEDING Current Active Problems Goiter diffuse (Acute) Melena (Acute) Rectal bleed (Acute) Type 2 diabetes mellitus with diabetic neuropathy, unspecified (Acute) Hospital Course: The patient is an 81 year old female, with a significant past medical history of anemia, diabetes, hypertension, hypercholesterolemia, and multinodular thyroid goiter, who presents to the emergency department complaining of rectal bleeding for approximately 2 days. The patient reports bright red bloody clots upon bowel movements since yesterday. Today, the patient reports hematochezia continues every time she has a bowel movement. The patient states she has experienced blood clots in the past, secondary to diverticular bleed, for which she followed-up with Dr. Rojas and was placed on coumadin. 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 The patient reports she is currently on coumadin. The patient denies any abdominal pain, nausea, vomiting, diarrhea, or constipation. The patient denies any dysuria, hematuria, frequency, or urgency. The patient denies any fever, chills, cough, headache, or dizziness. The patient denies any chest pain, shortness of breath, diaphoresis, or palpitations. The patient denies any recent travel or sicks contacts. Allergies: Lactose. Past Surgical History: Hysterectomy, (x5) Social History: Non-smoker. Denies alcohol or drug use. PCP: Dr. Whaley - Problems (1) Rectal bleed Assessment/Plan: guaicic positive yesterday stool Gi follow up with dr franco--NO ENDOSCOPIES ppi h/h holding Code(s): K62.5 - HEMORRHAGE OF ANUS AND RECTUM (2) Guaiac + stool Assessment/Plan: see 1 Code(s): R19.5 - OTHER FECAL ABNORMALITIES (3) HLD (hyperlipidemia) Assessment/Plan: statin Code(s): E78.5 - HYPERLIPIDEMIA, UNSPECIFIED (4) HTN (hypertension) Assessment/Plan: stable Code(s): I10 - ESSENTIAL (PRIMARY) HYPERTENSION Qualifiers: (5) Jugular vein thrombosis, right Assessment/Plan: BACK ON Coumadin on heparin drip Code(s): I82.890 - ACUTE EMBOLISM AND THROMBOSIS OF OTHER SPECIFIED VEINS (6) Type 2 diabetes mellitus with diabetic neuropathy, unspecified Assessment/Plan: lyrica and amaryl Code(s): E11.40 - TYPE 2 DIABETES MELLITUS WITH DIABETIC NEUROPATHY, UNSP Condition: Guarded - Instructions Referrals: Maldonado Whaley MD [Primary Care Provider] - - Home Medications Comprehensive Discharge Medication List: Ambulatory Orders Aspirin [ASA -] 81 mg PO DAILY #0 tab.chew 12/14/11 Folic Acid - 1 mg PO DAILY 07/06/13 Atorvastatin Ca [Lipitor] 10 mg PO HS 07/27/14 Pregabalin [Lyrica -] 50 mg PO TID #90 capsule MDD 3 10/17/15 Amlodipine Besylate [Norvasc -] 10 mg PO DAILY #30 tablet 02/23/16 Glimepiride [Amaryl] 4 mg PO DAILY 08/14/16 Warfarin Na [Coumadin -] 5 mg PO DAILY@1800 08/14/16
[2016-08-18 07:53] LABS: BASOPHIL 1.7 % (0-2.0); EOSINOPHIL 4.9 % (0-4.5); MCH 24.6 pg (25.7-33.7); MCHC 32.5 g/dl (32.0-36.0); MEAN CELL VOLUME 75.8 fl (80-96); MEAN PLT VOLUME 8.9 fl (7.5-11.1); NEUTROPHILS 28.2 % (42.8-82.8); PLATELET COUNT 231 K/MM3 (134-434); RDW 15.7 % (11.6-15.6); WHITE BLOOD COUNT 4.1 K/mm3 (4.0-10.0)
[2016-08-18 08:11] LABS: INR 1.74 (0.82-1.09); PROTHROMBIN TIME (PATIENT) 19.4 SEC (9.98-11.88)
[2016-08-18] MEDS: amLODIPine BESYLATE 10 MG TABLET (FP) PO SCH (10:15)
[2016-08-18] MEDS: PREGABALIN 50 MG CAPSULE PO SCH ×2 (10:15→22:27)
[2016-08-18] MEDS: PANTOPRAZOLE 40 MG TABLET (FP) PO SCH (10:16)
[2016-08-18] MEDS: WARFARIN NA 5 MG TABLET (UD) PO SCH (17:14)
[2016-08-18] MEDS: ATORVASTATIN CA 20 MG TABLET (FP) PO SCH (22:27)
[2016-08-19] MEDS ORDERED: PT OWN MED DRAWER 7, Y5N ONE (06:38)
[2016-08-19] MEDS: GLIMEPIRIDE 4 MG TABLET (FP) PO SCH (07:27)
[2016-08-19] MEDS: INSULIN SLIDING SCALE (NOVOLOG) 1 VIAL SQ SCH ×4 (07:27→21:03)
[2016-08-19 07:29] LABS: MCH 24.3 pg (25.7-33.7); MCHC 31.9 g/dl (32.0-36.0); MEAN CELL VOLUME 76.1 fl (80-96); PLATELET COUNT 216 K/MM3 (134-434); RDW 15.8 % (11.6-15.6); WHITE BLOOD COUNT 4.2 K/mm3 (4.0-10.0)
--- NOTE | 2016-08-19 08:25 | DS ---
Physical Examination Vital Signs: Vital Signs Temperature 98.2 F 08/19/16 06:13 Pulse Rate 74 08/19/16 06:13 Respiratory Rate 20 08/19/16 06:13 Blood Pressure 105/64 08/19/16 06:13 O2 Sat by Pulse Oximetry (%) 97 08/19/16 02:00 Cardiovascular: Yes: Regular Rate and Rhythm Respiratory: Yes: Regular, CTA Bilaterally Gastrointestinal: Yes: Normal Bowel Sounds, Soft Labs: CBC, BMP 08/19/16 06:00 08/17/16 06:00 Discharge Summary Reason For Visit: RECTAL BLEEDING Current Active Problems Goiter diffuse (Acute) Melena (Acute) Rectal bleed (Acute) Type 2 diabetes mellitus with diabetic neuropathy, unspecified (Acute) Hospital Course: The patient is an 81 year old female, with a significant past medical history of anemia, diabetes, hypertension, hypercholesterolemia, and multinodular thyroid goiter, who presents to the emergency department complaining of rectal bleeding for approximately 2 days. The patient reports bright red bloody clots upon bowel movements since yesterday. Today, the patient reports hematochezia continues every time she has a bowel movement. The patient states she has experienced blood clots in the past, secondary to diverticular bleed, for which she followed-up with Dr. Rojas and was placed on coumadin. 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 The patient reports she is currently on coumadin. The patient denies any abdominal pain, nausea, vomiting, diarrhea, or constipation. The patient denies any dysuria, hematuria, frequency, or urgency. The patient denies any fever, chills, cough, headache, or dizziness. The patient denies any chest pain, shortness of breath, diaphoresis, or palpitations. The patient denies any recent travel or sicks contacts. Allergies: Lactose. Past Surgical History: Hysterectomy, (x5) Social History: Non-smoker. Denies alcohol or drug use. PCP: Dr. Whaley - Problems (1) Rectal bleed Assessment/Plan: guaicic positive yesterday stool Gi follow up with dr franco--NO ENDOSCOPIES ppi h/h holding Code(s): K62.5 - HEMORRHAGE OF ANUS AND RECTUM (2) Guaiac + stool Assessment/Plan: see 1 Code(s): R19.5 - OTHER FECAL ABNORMALITIES (3) HLD (hyperlipidemia) Assessment/Plan: statin Code(s): E78.5 - HYPERLIPIDEMIA, UNSPECIFIED (4) HTN (hypertension) Assessment/Plan: stable Code(s): I10 - ESSENTIAL (PRIMARY) HYPERTENSION Qualifiers: (5) Jugular vein thrombosis, right Assessment/Plan: BACK ON Coumadin on heparin drip Code(s): I82.890 - ACUTE EMBOLISM AND THROMBOSIS OF OTHER SPECIFIED VEINS (6) Type 2 diabetes mellitus with diabetic neuropathy, unspecified Assessment/Plan: lyrica and amaryl Code(s): E11.40 - TYPE 2 DIABETES MELLITUS WITH DIABETIC NEUROPATHY, UNSP Condition: Improved - Instructions Diet, Activity, Other Instructions: MONITOR INR ON TUESDAY Referrals: Maldonado Whaley MD [Primary Care Provider] - 1 Week Disposition: HOME - Home Medications Comprehensive Discharge Medication List: Ambulatory Orders Aspirin [ASA -] 81 mg PO DAILY #0 tab.chew 12/14/11 Folic Acid - 1 mg PO DAILY 07/06/13 Atorvastatin Ca [Lipitor] 10 mg PO HS 07/27/14 Pregabalin [Lyrica -] 50 mg PO TID #90 capsule MDD 3 10/17/15 Amlodipine Besylate [Norvasc -] 10 mg PO DAILY #30 tablet 02/23/16 Glimepiride [Amaryl] 4 mg PO DAILY 08/14/16 Warfarin Na [Coumadin -] 5 mg PO DAILY@1800 08/14/16
[2016-08-19 08:28] LABS: INR 1.73 (0.82-1.09); PROTHROMBIN TIME (PATIENT) 19.3 SEC (9.98-11.88)
[2016-08-19] MEDS: PANTOPRAZOLE 40 MG TABLET (FP) PO SCH (10:02)
[2016-08-19] MEDS: amLODIPine BESYLATE 10 MG TABLET (FP) PO SCH (10:02)
[2016-08-19] MEDS: PREGABALIN 50 MG CAPSULE PO SCH ×2 (10:02→21:01)
[2016-08-19] MEDS ORDERED: INSULIN (NOVOLOG) ASPART 100 UNITS/ML 10ML VIAL ONE (12:10)
[2016-08-19] MEDS: WARFARIN NA 5 MG TABLET (UD) PO SCH (17:59)
--- NOTE | 2016-08-19 19:30 | PN ---
GI Progress Note Subjective: no rectal bleeding - Objective Vital Signs: Vital Signs Temperature 98.1 F 08/19/16 17:28 Pulse Rate 73 08/19/16 17:28 Respiratory Rate 20 08/19/16 17:28 Blood Pressure 131/59 08/19/16 17:28 O2 Sat by Pulse Oximetry (%) 98 08/19/16 10:00 Constitutional: Well Nourished Eyes: Yes: Conjunctiva Clear HENT: Yes: Atraumatic Neck: Yes: Supple Cardiovascular: Yes: Regular Rate and Rhythm Respiratory: Yes: CTA Bilaterally ...Palpate: Yes: Soft. No: Firm/Rigid, Guarding, Hepatomegaly, Mass, Pulsatile Mass, Tenderness, Rebound Labs: CBC, BMP 08/19/16 06:00 08/17/16 06:00 INR, PTT INR 1.73 (0.82-1.09) H 08/19/16 06:00 Problem List - Problems (1) Diverticular hemorrhage Assessment/Plan: --resolved R> colonoscopy as an outpaient patie and daughter made aware to ff-up Code(s): K57.31 - DVRTCLOS OF LG INT W/O PERFORATION OR ABSCESS W BLEEDING
[2016-08-19] MEDS: HEPARIN INFUSION - 500 ML IVPB SCH ×2 (20:05)
[2016-08-19] MEDS: ATORVASTATIN CA 20 MG TABLET (FP) PO SCH (21:01)
[2016-08-20] MEDS: INSULIN SLIDING SCALE (NOVOLOG) 1 VIAL SQ SCH (06:07)
[2016-08-20] MEDS: GLIMEPIRIDE 4 MG TABLET (FP) PO SCH (06:20)
[2016-08-20 07:24] LABS: MCH 24.2 pg (25.7-33.7); MCHC 31.5 g/dl (32.0-36.0); MEAN CELL VOLUME 76.7 fl (80-96); PLATELET COUNT 215 K/MM3 (134-434); RDW 15.9 % (11.6-15.6); WHITE BLOOD COUNT 3.5 K/mm3 (4.0-10.0)
[2016-08-20 07:59] LABS: INR 1.81 (0.82-1.09); PROTHROMBIN TIME (PATIENT) 20.1 SEC (9.98-11.88)
--- NOTE | 2016-08-20 08:35 | DS ---
Physical Examination Vital Signs: Vital Signs Temperature 98.3 F 08/20/16 05:00 Pulse Rate 71 08/20/16 05:00 Respiratory Rate 20 08/20/16 05:00 Blood Pressure 114/54 08/20/16 05:00 O2 Sat by Pulse Oximetry (%) 99 08/20/16 02:00 Neck: Yes: Supple Cardiovascular: Yes: Regular Rate and Rhythm Respiratory: Yes: Regular, CTA Bilaterally Gastrointestinal: Yes: Normal Bowel Sounds, Soft Labs: CBC, BMP 08/20/16 07:16 08/17/16 06:00 Discharge Summary Reason For Visit: RECTAL BLEEDING Current Active Problems Diverticular hemorrhage (Acute) Goiter diffuse (Acute) Melena (Acute) Rectal bleed (Acute) Type 2 diabetes mellitus with diabetic neuropathy, unspecified (Acute) Hospital Course: The patient is an 81 year old female, with a significant past medical history of anemia, diabetes, hypertension, hypercholesterolemia, and multinodular thyroid goiter, who presents to the emergency department complaining of rectal bleeding for approximately 2 days. The patient reports bright red bloody clots upon bowel movements since yesterday. Today, the patient reports hematochezia continues every time she has a bowel movement. The patient states she has experienced blood clots in the past, secondary to diverticular bleed, for which she followed-up with Dr. Rojas and was placed on coumadin. 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 The patient reports she is currently on coumadin. The patient denies any abdominal pain, nausea, vomiting, diarrhea, or constipation. The patient denies any dysuria, hematuria, frequency, or urgency. The patient denies any fever, chills, cough, headache, or dizziness. The patient denies any chest pain, shortness of breath, diaphoresis, or palpitations. The patient denies any recent travel or sicks contacts. Allergies: Lactose. Past Surgical History: Hysterectomy, (x5) Social History: Non-smoker. Denies alcohol or drug use. PCP: Dr. Whaley - Problems (1) Rectal bleed Assessment/Plan: guaicic positive yesterday stool Gi follow up with dr franco--NO ENDOSCOPIES ppi h/h holding Code(s): K62.5 - HEMORRHAGE OF ANUS AND RECTUM (2) Guaiac + stool Assessment/Plan: see 1 Code(s): R19.5 - OTHER FECAL ABNORMALITIES (3) HLD (hyperlipidemia) Assessment/Plan: statin Code(s): E78.5 - HYPERLIPIDEMIA, UNSPECIFIED (4) HTN (hypertension) Assessment/Plan: stable Code(s): I10 - ESSENTIAL (PRIMARY) HYPERTENSION Qualifiers: (5) Jugular vein thrombosis, right Assessment/Plan: BACK ON Coumadin on heparin drip Code(s): I82.890 - ACUTE EMBOLISM AND THROMBOSIS OF OTHER SPECIFIED VEINS (6) Type 2 diabetes mellitus with diabetic neuropathy, unspecified Assessment/Plan: lyrica and amaryl Code(s): E11.40 - TYPE 2 DIABETES MELLITUS WITH DIABETIC NEUROPATHY, UNSP Condition: Improved - Instructions Diet, Activity, Other Instructions: MONITOR INR ON TUESDAY Referrals: Maldonado Whaley MD [Primary Care Provider] - 1 Week Disposition: HOME - Home Medications Comprehensive Discharge Medication List: Ambulatory Orders Aspirin [ASA -] 81 mg PO DAILY #0 tab.chew 12/14/11 Folic Acid - 1 mg PO DAILY 07/06/13 Atorvastatin Ca [Lipitor] 10 mg PO HS 07/27/14 Pregabalin [Lyrica -] 50 mg PO TID #90 capsule MDD 3 10/17/15 Amlodipine Besylate [Norvasc -] 10 mg PO DAILY #30 tablet 02/23/16 Glimepiride [Amaryl] 4 mg PO DAILY 08/14/16 Warfarin Na [Coumadin -] 5 mg PO DAILY@1800 08/14/16 Pantoprazole Sodium [Protonix -] 40 mg PO DAILY #30 08/19/16
[2016-08-20] MEDS: amLODIPine BESYLATE 10 MG TABLET (FP) PO SCH (09:50)
[2016-08-20] MEDS: PANTOPRAZOLE 40 MG TABLET (FP) PO SCH (09:50)
[2016-08-20] MEDS: PREGABALIN 50 MG CAPSULE PO SCH (09:50)
[2016-08-20 11:43] VITALS: BP 128/56; PULSE 78; TEMP 97.9
== END 2016-08-20 11:46 | disposition home or self-care (01) | DRG 379 ==
LOC: JER 08:30 → UNDOADMIN 10:23 → JERBED 10:23 → UNDOADMIN 10:25 → JERBED 11:15 → J7W 11:15 → JERBED 18:00 → J7W 18:00
PROVIDERS: ADMIT Family Medicine; ATTEND Family Medicine
DX: K62.5 Hemorrhage of anus and rectum (principal); I10 Essential (primary) hypertension; E78.5 Hyperlipidemia, unspecified; E04.2 Nontoxic multinodular goiter; D64.9 Anemia, unspecified; I27.2 Other secondary pulmonary hypertension; I25.10 Atherosclerotic heart disease of native coronary artery without angina pectoris; I35.1 Nonrheumatic aortic (valve) insufficiency; K21.9 Gastro-esophageal reflux disease without esophagitis; E11.40 Type 2 diabetes mellitus with diabetic neuropathy, unspecified; D72.818 Other decreased white blood cell count; Z86.711 Personal history of pulmonary embolism
CPT/HCPCS: 36415; 71010-TC; 80048; 80053; 80074; 82272; 82728; 83540; 83550; 83690; 85025; 85027; 85610; 85730; 86850; 86900; 86901; 87177; 87205; 87207; 87209; 87328; 87329; 93005; 93010; 99282-25; J1644

== ENCOUNTER 2016-12-19 12:23 | Inpatient (IN) | payer BC, OTHER ==
--- NOTE | 2016-12-19 12:56 | PDOC ---
Attending Attestation - Resident Resident Name: Jelena Perdomo - HPI HPI: 12/19/16 15:50 Pt presents to the ED complaining of exertional weakness and DAVIES. - Physicial Exam PE: 12/19/16 15:57 Exam is unremarkable. except for mild conversational dyspnea. 12/19/16 16:09 - Medical Decision Making 12/19/16 16:09 Pt presents to the Ed complaining of exertional dyspnea and generalized weakness. Concern for ACS, CHF, anemia, infection. Will check labs and cXR and admit to medicine.
--- NOTE | 2016-12-19 13:15 | PDOC ---
History of Present Illness - General Chief Complaint: Weakness Stated Complaint: WEAKNESS Time Seen by Provider: 12/19/16 12:48 History Source: Patient Exam Limitations: No Limitations - History of Present Illness Initial Comments: 12/19/16 14:10 Patient is a 81 y.o. female with a PMH of Anemia, Type 2 DM, CAD, HTN, and HLD who presents to our facility today c/o a 3 week h/o of weakness with exertion. Patient states that the weakness is associated with walking and relieved with rest. Patients notes her weakness intermittently associated shortness of breath but denies any lightheadedness, pre-syncope or chest pain. Timing/Duration: other (2-3 weeks) Severity: moderate Modifying Factors: improves with: rest Associated Symptoms: reports: shortness of breath, weakness Aspirin Received prior to arrival: Yes: no aspirin today Past History - Past Medical History Allergies/Adverse Reactions: Allergies Allergy/AdvReac Type Severity Reaction Status Date / Time lactose AdvReac Severe Verified 12/19/16 12:30 Home Medications: Ambulatory Orders Aspirin [ASA -] 81 mg PO DAILY #0 tab.chew 12/14/11 Folic Acid - 1 mg PO DAILY 07/06/13 Atorvastatin Ca [Lipitor] 10 mg PO HS 07/27/14 Pregabalin [Lyrica -] 50 mg PO TID #90 capsule MDD 3 10/17/15 Amlodipine Besylate [Norvasc -] 10 mg PO DAILY #30 tablet 02/23/16 Glimepiride [Amaryl] 4 mg PO DAILY 08/14/16 Warfarin Na [Coumadin -] 5 mg PO DAILY@1800 08/14/16 Pantoprazole Sodium [Protonix -] 40 mg PO DAILY #30 08/19/16 Anemia: Yes Diabetes: Yes HTN: Yes Hypercholesterolemia: Yes Suicide Attempt (Hx): No - Immunization History Immunization Up to Date: Yes - Psycho/Social/Smoking Cessation Hx Anxiety: No Suicidal Ideation: No Smoking Status: No Smoking History: Never smoked Have you smoked in the past 12 months: No Number of Cigarettes Smoked Daily: 0 Information on smoking cessation initiated: No Hx Alcohol Use: No Drug/Substance Use Hx: No Substance Use Type: None Hx Substance Use Treatment: No *Physical Exam - Vital Signs Last Vital Signs Temp Pulse Resp BP Pulse Ox 98.3 F 84 18 141/81 100 12/19/16 12:31 12/19/16 12:31 12/19/16 12:31 12/19/16 12:31 12/19/16 12:31 - Physical Exam General Appearance: Yes: Nourished, Appropriately Dressed, Mild Distress HEENT: positive: EOMI, MINDA Neck: positive: Tender, Supple Respiratory/Chest: positive: Lungs Clear, Normal Breath Sounds Gastrointestinal/Abdominal: positive: Normal Bowel Sounds, Soft Musculoskeletal: positive: Normal Inspection Integumentary: positive: Normal Color, Dry, Warm Neurologic: positive: shot coat tender II-XII NML intact, Fully Oriented, Alert ED Treatment Course - LABORATORY CBC & Chemistry Diagram: 12/19/16 13:17 12/19/16 13:17 Medical Decision Making - Medical Decision Making 12/19/16 14:15 As patient's reports a consistent exertional weakness with intermittently associated dyspnea, a thorough work-up was obtained to rule out cardiac, metabolic and infectious causes. EKG showed 1st degree AV Block (unlikely to be cause of patient's weakness), CBC was negative for anemia, and electrolytes were within normal limits. Chest XR was preliminary read in the ED and showed no infiltrate, edema or congestion. Patient was admitted to inpatient medicine service telemetry for further cardiac workup including echocardiogram, Holter monitoring and possible stress test. *DC/Admit/Observation/Transfer Diagnosis at time of Disposition: Exertional dyspnea - Discharge Dispostion Condition at time of disposition: Good Admit: Yes - Referrals - Attestations Physician Attestion: 12/19/16 17:57 I, Dr. Jelena Perdomo, attest that this document has been prepared under my direction and personally reviewed by me in its entirety. I further attest, that it accurately reflects all work, treatment, procedures and medical decision -making performed by me.
[2016-12-19 13:34] LABS: BASOPHIL 1.3 % (0-2.0); EOSINOPHIL 3.3 % (0-4.5); MCHC 31.5 g/dl (32.0-36.0); MEAN CELL VOLUME 76.2 fl (80-96); MEAN PLT VOLUME 8.8 fl (7.5-11.1); NEUTROPHILS 53.8 % (42.8-82.8); PLATELET COUNT 221 K/MM3 (134-434)
[2016-12-19 13:58] LABS: INR 1.91 (0.82-1.09); PROTHROMBIN TIME (PATIENT) 21.3 SEC (9.98-11.88)
[2016-12-19 14:01] LABS: ANION GAP 9 (8-16); CALCIUM 8.7 mg/dL (8.5-10.1); CO2 25 mmol/L (21-32); CREATININE 1.2 mg/dL (0.55-1.02); GLUCOSE,RANDOM 186 mg/dL (74-106)
[2016-12-19 14:15] LABS: TROPONIN I < 0.02 ng/ml (0.00-0.05)
--- NOTE | 2016-12-19 21:55 | CONSULT ---
Consult Consult Specialty:: endocrine Reason for Consultation:: hypothyroidism,dm - History of Present Illness Chief Complaint: weakness /palpitation History of Present Illness: Patient is a 81 y.o. female with a PMH of Anemia, Type 2 DM, CAD, HTN, and HLD who presents to our facility today c/o a 3 week h/o of weakness with exertion. Patient states that the weakness is associated with walking and relieved with rest.several episodes near syncope,yet felt palitation,and almost falling to floor,came for help,denies hypoglycemia,heat intolerance - History Source History Provided By: Patient - Past Medical History Cardio/Vascular: Yes: Pulmonary Hypertension, CAD (reported CAD), HTN, Hyperlipdemia, Aortic Insufficiency Pulmonary: Yes: Pulmonary Embolus (following ~50 years ago, and again in 2013 while hospitalzied for shingles per patient's report) Gastrointestinal: Yes: GERD Endocrine: Yes: Diabetes Mellitus, Other (mutlinodular goitre) - Past Surgical History Past Surgical History: Yes: (x5), Hysterectomy (JANINE ~ 40 years ago) - Alcohol/Substance Use Hx Alcohol Use: No History of Substance Use: reports: None - Smoking History Smoking history: Never smoked Have you smoked in the past 12 months: No Aproximately how many cigarettes per day: 0 Home Medications - Allergies Allergies/Adverse Reactions: Allergies Allergy/AdvReac Type Severity Reaction Status Date / Time lactose AdvReac Severe Verified 12/19/16 12:30 - Home Medications Home Medications: Ambulatory Orders Aspirin [ASA -] 81 mg PO DAILY #0 tab.chew 12/14/11 Folic Acid - 1 mg PO DAILY 07/06/13 Atorvastatin Ca [Lipitor] 10 mg PO HS 07/27/14 Pregabalin [Lyrica -] 50 mg PO TID #90 capsule MDD 3 10/17/15 Amlodipine Besylate [Norvasc -] 10 mg PO DAILY #30 tablet 02/23/16 Glimepiride [Amaryl] 4 mg PO DAILY 08/14/16 Warfarin Na [Coumadin -] 5 mg PO DAILY@1800 08/14/16 Pantoprazole Sodium [Protonix -] 40 mg PO DAILY #30 08/19/16 Family Disease History - Family Disease History Family Disease History: Diabetes: Sister, Heart Disease: Brother, CA: Father ( colon cancer), Sister Review of Systems - Review of Systems Constitutional: reports: Weakness Eyes: reports: No Symptoms HENT: reports: No Symptoms Neck: reports: No Symptoms Cardiovascular: reports: Palpitations, Shortness of Breath Respiratory: reports: Exercise Intolerance, SOB on Exertion Gastrointestinal: reports: No Symptoms, Bloating Genitourinary: reports: No Symptoms Breasts: reports: No Symptoms Reported Musculoskeletal: reports: Muscle Pain, Muscle Cramps, Muscle Weakness Integumentary: reports: No Symptoms Neurological: reports: Weakness Endocrine: reports: No Symptoms Hematology/Lymphatic: reports: No Symptoms Physical Exam Vital Signs: Vital Signs Temperature 98.3 F 12/19/16 12:31 Pulse Rate 74 12/19/16 16:34 Respiratory Rate 20 12/19/16 16:34 Blood Pressure 135/90 12/19/16 16:34 O2 Sat by Pulse Oximetry (%) 100 12/19/16 16:34 Constitutional: Yes: Calm Eyes: Yes: EOM Intact HENT: Yes: Normocephalic Neck: Yes: Trachea Midline Cardiovascular: Yes: Pulse Irregular, S2 Respiratory: Yes: CTA Bilaterally Gastrointestinal: Yes: WNL ...Rectal Exam: Yes: Deferred Renal/: Yes: WNL Breast(s): Yes: WNL Musculoskeletal: Yes: Muscle Weakness Extremities: Yes: WNL Edema: No Peripheral Pulses WNL: Yes Integumentary: Yes: WNL Problem List - Problems (1) Abdominal pain Code(s): R10.9 - UNSPECIFIED ABDOMINAL PAIN (2) Acute renal failure Code(s): N17.9 - ACUTE KIDNEY FAILURE, UNSPECIFIED (3) Anemia Code(s): D64.9 - ANEMIA, UNSPECIFIED (4) Diabetes mellitus Code(s): E11.9 - TYPE 2 DIABETES MELLITUS WITHOUT COMPLICATIONS Assessment/Plan dm niddm ckd, htn ashd, afib hypothyroidism multinodular goiter \near syncope Abnormal Lab Results 12/19/16 12/19/16 12/19/16 13:17 13:17 13:30 MCV 76.2 L MCH 24.0 L MCHC 31.5 L RDW 16.0 H INR 1.91 H Creatinine 1.2 H D Random Glucose 186 H D Laboratory Results - last 24 hr 12/19/16 12/19/16 12/19/16 13:17 13:17 13:30 WBC 4.0 RBC 4.83 Hgb 11.6 Hct 36.8 MCV 76.2 L MCH 24.0 L MCHC 31.5 L RDW 16.0 H Plt Count 221 MPV 8.8 Neutrophils % 53.8 D Lymphocytes % 32.0 D Monocytes % 9.6 Eosinophils % 3.3 Basophils % 1.3 INR 1.91 H Sodium 140 Potassium 4.4 Chloride 106 Carbon Dioxide 25 Anion Gap 9 BUN 14 D Creatinine 1.2 H D Random Glucose 186 H D Calcium 8.7 Creatine Kinase CK-MB (CK-2) Troponin I 12/19/16 13:59 WBC RBC Hgb Hct MCV MCH MCHC RDW Plt Count MPV Neutrophils % Lymphocytes % Monocytes % Eosinophils % Basophils % INR Sodium Potassium Chloride Carbon Dioxide Anion Gap BUN Creatinine Random Glucose Calcium Creatine Kinase 173 D CK-MB (CK-2) 1.391 Troponin I < 0.02 plan: cardiac monitoring ro arrythmia \ct brain 24 hr holter monitor tsh free t4 bgm acmeals
[2016-12-19 23:19] VITALS: BMI 30.5
[2016-12-19] MEDS ORDERED: ACETAMINOPHEN 325 MG TABLET (FP) PO PRN (23:29)
[2016-12-19] MEDS ORDERED: ALBUTEROL SO4 2.5/IPRATROPIUM 0.5 INH SOL 3 ML VIAL.NEB. NEB PRN (23:30)
[2016-12-19 23:48] LABS: URINE APPEARANCE CLEAR; URINE BILIRUBIN NEGATIVE (NEGATIVE); URINE BLOOD NEGATIVE (NEGATIVE); URINE COLOR STRAW; URINE GLUCOSE (UA) 1+ (NEGATIVE); URINE KETONE NEGATIVE (NEGATIVE); URINE LEUK ESTERASE NEGATIVE (NEGATIVE); URINE NITRITE NEGATIVE (NEGATIVE); URINE PROTEIN NEGATIVE (NEGATIVE); URINE UROBILINOGEN 2.0 E.U/dl E.U./dl (0.2-1.0)
[2016-12-20] MEDS ORDERED: WARFARIN NA 5 MG TABLET (UD) PO ONE (00:45)
[2016-12-20] MEDS: INSULIN SLIDING SCALE (NOVOLOG) 1 VIAL SQ SCH ×3 (06:44→16:07)
[2016-12-20 08:05] LABS: ALBUMIN 3.7 g/dl (3.4-5.0); ANION GAP 8 (8-16); CO2 25 mmol/L (21-32); GLUCOSE,RANDOM 105 mg/dL (74-106); SGOT/AST 17 U/L (15-37); SGPT/ALT 20 U/L (12-78)
[2016-12-20 08:14] LABS: ALK PHOS 87 U/L (45-117); BILIRUBIN,TOTAL 0.5 mg/dL (0.2-1.0); FREE T4 1.04 ng/dl (0.76-1.46); THYROID STIMULATING HORMONE 2.42 uIU/ml (0.358-3.74); TOT PROT 7.7 g/dl (6.4-8.2)
[2016-12-20 08:33] LABS: INR 1.7 (0.82-1.09); PROTHROMBIN TIME (PATIENT) 18.9 SEC (9.98-11.88)
[2016-12-20 09:46] LABS: MCH 23.9 pg (25.7-33.7); MCHC 31.9 g/dl (32.0-36.0); MEAN CELL VOLUME 75.1 fl (80-96); MEAN PLT VOLUME 9.2 fl (7.5-11.1); PLATELET COUNT 230 K/MM3 (134-434); WHITE BLOOD COUNT 4.1 K/mm3 (4.0-10.0)
[2016-12-20 09:57] LABS: CHOLESTEROL 216 mg/dL (50-200); LDL CHOLESTEROL (ONLY SJRH) 143 mg/dL (5-100)
[2016-12-20] MEDS: GLIMEPIRIDE 4 MG TABLET (FP) PO SCH (10:11)
[2016-12-20] MEDS: PREGABALIN 50 MG CAPSULE PO SCH ×3 (10:11→21:57)
[2016-12-20] MEDS: ASPIRIN COATED 81 MG TABLET.EC PO SCH (10:11)
[2016-12-20] MEDS: FOLIC ACID 1 MG TABLET (FP) PO SCH (10:11)
--- NOTE | 2016-12-20 10:35 | EKG ---
Test Reason : Blood Pressure : / mmHG Vent. Rate : 066 BPM Atrial Rate : 066 BPM P-R Int : 220 ms QRS Dur : 074 ms QT Int : 468 ms P-R-T Axes : 037 -23 008 degrees QTc Int : 490 ms SINUS RHYTHM WITH 1ST DEGREE A-V BLOCK INFERIOR INFARCT (CITED ON OR BEFORE 14-AUG-2016) ABNORMAL ECG WHEN COMPARED WITH ECG OF 14-AUG-2016 08:58, NO SIGNIFICANT CHANGE WAS FOUND Confirmed by KHURRAM HERNÁNDEZ MD ([id number]) on 12/20/2016 10:34:33 AM Referred By: Confirmed By:KHURRAM HERNÁNDEZ MD
--- NOTE | 2016-12-20 11:34 | HP ---
Admitting History and Physical - Primary Care Physician PCP: Maldonado Whaley - Admission Chief Complaint: weakness and sensation of passing out History of Present Illness: History of Present Illness: Patient is a 81 y.o. female with a PMH of Anemia, Type 2 DM, CAD, HTN, and HLD who presents to our facility today c/o a 3 week h/o of weakness with exertion. per patient about 3 weeks ago she notice when she got up from sitting position and started to walk she felt as if she was going to pass out she felt dizzy and she held on to kitchen counter and then sat down and after 5 min felt better,then again last week she was getting up to use restroom when she felt as if she was going to pass out and her heart was beating very fast she held on to her daughter and then sat down and felt better then again the day before admission and day of admission she felt again light headed and weak as if she was going to pass out and then her daughter made her sit down she states theses episode only occur from sitting to standing posittion, when she sitting or lying down she is ok History Source: Patient, Medical Record - Past Medical History Cardiovascular: Yes: Pulmonary Hypertension, CAD (reported CAD), HTN, Hyperlipdemia, Aortic Insufficiency Pulmonary: Yes: Pulmonary Embolus (following ~50 years ago, and again in 2013 while hospitalzied for shingles per patient's report) Gastrointestinal: Yes: GERD Endocrine: Yes: Diabetes Mellitus, Other (mutlinodular goitre) - Past Surgical History Past Surgical History: Yes: (x5), Hysterectomy (JANINE ~ 40 years ago) - Smoking History Smoking history: Never smoked Have you smoked in the past 12 months: No Aproximately how many cigarettes per day: 0 - Alcohol/Substance Use Hx Alcohol Use: No History of Substance Use: reports: None Home Medications - Allergies Allergies/Adverse Reactions: Allergies Allergy/AdvReac Type Severity Reaction Status Date / Time lactose AdvReac Severe Verified 12/19/16 12:30 - Home Medications Home Medications: Ambulatory Orders Aspirin [ASA -] 81 mg PO DAILY #0 tab.chew 12/14/11 Folic Acid - 1 mg PO DAILY 07/06/13 Atorvastatin Ca [Lipitor] 10 mg PO HS 07/27/14 Pregabalin [Lyrica -] 50 mg PO TID #90 capsule MDD 3 05/06/16 Amlodipine Besylate [Norvasc -] 10 mg PO DAILY #30 tablet 02/23/16 Glimepiride [Amaryl] 4 mg PO DAILY 08/14/16 Warfarin Na [Coumadin -] 5 mg PO DAILY@1800 08/14/16 Pantoprazole Sodium [Protonix -] 40 mg PO DAILY #30 08/19/16 Family Disease History - Family Disease History Family Disease History: Diabetes: Sister, Heart Disease: Brother, [place]: Father ( colon cancer), Sister Review of Systems Findings/Remarks: currently lying in bed no symptoms - Review of Systems Constitutional: reports: No Symptoms Eyes: reports: No Symptoms HENT: reports: No Symptoms Neck: reports: No Symptoms Cardiovascular: reports: No Symptoms Respiratory: reports: No Symptoms Physical Examination Vital Signs: Vital Signs Temperature 98.2 F 12/20/16 10:00 Pulse Rate 78 12/20/16 10:00 Respiratory Rate 18 12/20/16 10:00 Blood Pressure 142/86 12/20/16 10:00 O2 Sat by Pulse Oximetry (%) 93 L 12/20/16 09:00 Constitutional: Yes: Calm Neck: Yes: Trachea Midline Cardiovascular: Yes: Regular Rate and Rhythm, S1, S2 Respiratory: Yes: CTA Bilaterally Gastrointestinal: Yes: Normal Bowel Sounds, Soft Edema: No Neurological: Yes: Alert, Oriented Labs: CBC, BMP 12/20/16 05:35 12/20/16 05:35 Imaging - Results Cat Scan: Report Reviewed Problem List - Problems (1) Near syncope Assessment/Plan: tele cardio echo holter neuro eval carotid dopplers Code(s): R55 - SYNCOPE AND COLLAPSE (2) Diabetes mellitus Assessment/Plan: appreciate endo note [id number] noted amaryl start januvia sliding scale will monitor Code(s): E11.9 - TYPE 2 DIABETES MELLITUS WITHOUT COMPLICATIONS Qualifiers: Diabetes mellitus type: type 2 (3) HLD (hyperlipidemia) Assessment/Plan: statin dose increased from 10 to 20mg Code(s): E78.5 - HYPERLIPIDEMIA, UNSPECIFIED (4) HTN (hypertension) Assessment/Plan: on [id number] will monitor if BP stays elevated will add on cozaar Code(s): I10 - ESSENTIAL (PRIMARY) HYPERTENSION Qualifiers: (5) CAD (coronary artery disease) Assessment/Plan: statin and aspirin Code(s): I25.10 - ATHSCL HEART DISEASE OF [place] CORONARY ARTERY W/O ANG PCTRS
[2016-12-20] MEDS: amLODIPine BESYLATE 10 MG TABLET (FP) PO SCH (11:50)
--- NOTE | 2016-12-20 14:13 | CON.CARD ---
Consult Consult Specialty:: Cardiology Reason for Consultation:: Dizziness - History of Present Illness History of Present Illness: F with HTN and ho DVT in AC was admitted with frequent dizzy spells while standing. She has no recent weight loss, syncope, chest pain or dyspnea. There is prior history of CAD managed medically as per patient. She has the dizziness only when standing and not seated or supine. One episode post-micturition was associated with palpitation. She takes amlodipine for BP - History Source History Provided By: Patient Limitations to Obtaining History: No Limitations - Past Medical History Cardio/Vascular: Yes: Pulmonary Hypertension, CAD (reported CAD), HTN, Hyperlipdemia, Aortic Insufficiency Pulmonary: Yes: Pulmonary Embolus (following ~50 years ago, and again in 2013 while hospitalzied for shingles per patient's report) Gastrointestinal: Yes: GERD Endocrine: Yes: Diabetes Mellitus, Other (mutlinodular goitre) - Past Surgical History Past Surgical History: Yes: (x5), Hysterectomy (JANINE ~ 40 years ago) - Alcohol/Substance Use Hx Alcohol Use: No History of Substance Use: reports: None - Smoking History Smoking history: Never smoked Have you smoked in the past 12 months: No Aproximately how many cigarettes per day: 0 Home Medications - Allergies Allergies/Adverse Reactions: Allergies Allergy/AdvReac Type Severity Reaction Status Date / Time lactose AdvReac Severe Verified 12/19/16 12:30 - Home Medications Home Medications: Ambulatory Orders Aspirin [ASA -] 81 mg PO DAILY #0 tab.chew 12/14/11 Folic Acid - 1 mg PO DAILY 07/06/13 Atorvastatin Ca [Lipitor] 10 mg PO HS 07/27/14 Pregabalin [Lyrica -] 50 mg PO TID #90 capsule MDD 3 10/17/15 Amlodipine Besylate [Norvasc -] 10 mg PO DAILY #30 tablet 02/23/16 Glimepiride [Amaryl] 4 mg PO DAILY 08/14/16 Warfarin Na [Coumadin -] 5 mg PO DAILY@1800 08/14/16 Pantoprazole Sodium [Protonix -] 40 mg PO DAILY #30 08/19/16 Family Disease History - Family Disease History Family Disease History: Diabetes: Sister, Heart Disease: Brother, [place]: Father ( colon cancer), Sister Review of Systems - Review of Systems Constitutional: reports: No Symptoms Eyes: reports: No Symptoms HENT: reports: No Symptoms Neck: reports: No Symptoms Cardiovascular: reports: No Symptoms Respiratory: reports: No Symptoms Gastrointestinal: reports: No Symptoms Vital Signs: Vital Signs Temperature 98.2 F 12/20/16 10:00 Pulse Rate 78 12/20/16 10:00 Respiratory Rate 18 12/20/16 10:00 Blood Pressure 142/86 12/20/16 10:00 O2 Sat by Pulse Oximetry (%) 93 L 12/20/16 09:00 Constitutional: Yes: Well Nourished, No Distress Eyes: Yes: WNL, Conjunctiva Clear, EOM Intact HENT: Yes: WNL, Atraumatic, Normocephalic Neck: Yes: WNL, Supple, Trachea Midline Respiratory: Yes: WNL, Regular, CTA Bilaterally Gastrointestinal: Yes: WNL, Normal Bowel Sounds, Soft Renal/: Yes: WNL Cardiovascular: Yes: Regular Rate and Rhythm JVD: No Carotid Bruit: No PMI: Non-Displaced Heart Sounds: Yes: S1, S2 Musculoskeletal: Yes: WNL Extremities: Yes: WNL Edema: No Peripheral Pulses WNL: Yes Integumentary: Yes: WNL Neurological: Yes: WNL - Other Data Labs, Other Data: CBC, BMP 12/20/16 05:35 12/20/16 05:35 INR, PTT INR 1.70 (0.82-1.09) H 12/20/16 05:35 Echo: Report Reviewed Ejection Fraction %: LVEF > or = 40 % Imaging - Results Cat Scan: Report Reviewed EKG: Image Reviewed Problem List - Problems (1) Dizziness and giddiness Code(s): R42 - DIZZINESS AND GIDDINESS Assessment/Plan Positional dizziness with normal Telemetry for the past few hours. Echocardiogram less than year ago was essentially normal. No ECG changes. Likely due to transient low BP. Continue to observe positional BP and make adjustments/increases only to standing BP. Will see as needed.
--- NOTE | 2016-12-20 16:39 | PN ---
Teaching Attending Note Name of Resident: Hadley Singh ATTENDING PHYSICIAN STATEMENT I saw and evaluated the patient. I reviewed the resident's note and discussed the case with the resident. I agree with the resident's findings and plan as documented. PULMONARY IMP NEAR SYNCOPE DYSPNEA ASHD HTN HLD H/O PE X 2 H/O DVT ? COPD PLAN O2 PRN CARDIAC W/U INHALED BRONCHODILATORS PRN PFTS CHEST CTA O2 SAT AT REST ON POST EXERCISE ON RA COUMADIN PER INR DR FERRELL
--- NOTE | 2016-12-20 16:56 | CONSULT ---
Consultation: REQUESTING PROVIDER: CONSULT REQUEST: We have been asked to medically evaluate this patient for ( specify). HISTORY OF PRESENT ILLNESS: 81 yo woman w/ pmh of anemia, CAD, DM2, HTN, HLD, COPD? (diagnosed 1 year ago), who presents with 3 weeks of multiple pre-syncopal episodes on exertion. Pt endorses a decreased exercise tolerance over the past year from baseline of being able to walk multiple blocks w/o symptoms (gym 3x/week), now with worsening dyspnea on exertion and SOB after "walking half a hallway". Pt endorses multiple presyncopal episodes with palpitations, lightheadedness, and tachypnea/SOB after standing/walking, requiring her to sit down and catch her breath, most recent 2 days prior to admission w/ a sensation of another episode 1 day prior which prompted current admission. She denies any dizziness, cough, seizure, fever, RIBERA, M/S changes, chills, N/V, hematochezia, or dysuria. She endorses some additional generalized weakness over last year. She denies any recent travel, sick contacts, infectious symptoms or worsening of respiratory status. Pt states she was diagnosed with COPD 1 year ago, but is currently taking no medication for this condition, has never been hospitalized or required intubation. She endorses occasional cough w/ sputum in AM. PMH: COPD - Dx? 1 year ago Shingles - Hospitalized. 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 Leaky valve? PSH: (5x) JANINE - 40 years ago Tonsillectomy Allergies: Lactose - Indigestion FH: Sister w/ colon CA. Brother w/ prostate CA. Mother w/ stroke (age unknown). Social Hx: Never smoked. Social drinker on weekends, stopped at age 73. No drugs. Currently retired, worked in an insurance office for 27 years. No major occupational exposure risks. REVIEW OF SYSTEMS: CONSTITUTIONAL: General weakness Absent: fever, chills, diaphoresis, malaise, loss of appetite, weight change HEENT: Absent: rhinorrhea, nasal congestion, throat pain, mouth swelling, ear pain, eye pain, visual changes CARDIOVASCULAR: presyncope, lightheadedness and palpitations during episodes Absent: chest pain, irregular heart rate, peripheral edema RESPIRATORY: SOB, dyspnea on exertion Absent: cough, orthopnea, wheezing, hemoptysis GASTROINTESTINAL: Absent: abdominal pain, abdominal distension, nausea, vomiting, diarrhea, constipation, melena, hematochezia GENITOURINARY: Absent: dysuria, frequency, urgency, hesitancy, hematuria MUSCULOSKELETAL: Absent: myalgia, arthralgia, joint swelling SKIN: Absent: rash NEUROLOGIC: dizziness Absent: headache, focal weakness or paresthesias PHYSICAL EXAMINATION Vital Signs - 24 hr 12/19/16 12/19/16 12/20/16 19:40 21:00 01:25 Temperature 98.0 F Pulse Rate 67 Pulse Rate [ Left side Sitting] Pulse Rate [ Left side Standing] Pulse Rate [ Left side Supine] Respiratory 20 20 20 Rate Blood Pressure 141/69 Blood Pressure [Left side Sitting] Blood Pressure [Left side Standing] Blood Pressure [Left side Supine] O2 Sat by Pulse 98 98 92 L Oximetry (%) 12/20/16 12/20/16 12/20/16 02:13 05:29 05:30 Temperature 98.0 F 98.9 F Pulse Rate 68 Pulse Rate [ 78 Left side Sitting] Pulse Rate [ 76 Left side Standing] Pulse Rate [ 73 Left side Supine] Respiratory 20 Rate Blood Pressure 138/67 Blood Pressure 144/83 [Left side Sitting] Blood Pressure 135/78 [Left side Standing] Blood Pressure 145/76 [Left side Supine] O2 Sat by Pulse Oximetry (%) 12/20/16 12/20/16 12/20/16 09:00 10:00 14:17 Temperature 98.2 F 98.3 F Pulse Rate 78 73 Pulse Rate [ Left side Sitting] Pulse Rate [ Left side Standing] Pulse Rate [ Left side Supine] Respiratory 20 18 16 Rate Blood Pressure 142/86 126/66 Blood Pressure [Left side Sitting] Blood Pressure [Left side Standing] Blood Pressure [Left side Supine] O2 Sat by Pulse 93 L Oximetry (%) GENERAL: Awake, alert, and fully oriented, in no acute distress. HEAD: Normal with no signs of trauma. EYES: PERRLA. Arcus senilis noted. Extraocular movements intact, sclera anicteric, conjunctiva clear. No lid lag. EARS, NOSE, THROAT: Ears normal, nares patent, oropharynx clear without exudates. Moist mucous membranes. NECK: Supple without lymphadenopathy, JVD, or masses. LUNGS: Faint bibasilar crackles in LL carranza. Slight midline inspiratory wheeze. No accessory muscle use. HEART: Regular rate and rhythm, normal S1 and S2 without murmur, rub or gallop. ABDOMEN: Soft, nontender, globular, hypoactive bowel sounds, no guarding, no rebound, no masses. No hepatomegaly or splenomegaly. MUSCULOSKELETAL: No CVA tenderness. UPPER EXTREMITIES: 2+ pulses, warm, well-perfused. No cyanosis. No clubbing. Cap refill <2 seconds. No peripheral edema. LOWER EXTREMITIES: 2+ pulses, warm, well-perfused. L discrete posterior edema BTK. NEUROLOGICAL: Normal speech. Normal gait. Mild delayed mentation. PSYCHIATRIC: Cooperative. Good eye contact. Appropriate mood and affect. SKIN: Warm, dry, normal turgor, no rashes or lesions noted. Laboratory Results - last 24 hr 12/19/16 12/19/16 12/20/16 23:17 23:48 05:25 WBC RBC Hgb Hct MCV MCH MCHC RDW Plt Count MPV INR Sodium Potassium Chloride Carbon Dioxide Anion Gap BUN Creatinine Creat Clearance w eGFR POC Glucometer 144 94 Random Glucose Hemoglobin A1c % Calcium Total Bilirubin AST ALT Alkaline Phosphatase Total Protein Albumin Triglycerides Cholesterol Total LDL Cholesterol HDL Cholesterol TSH Free T4 Urine Color Straw Urine Appearance Clear Urine pH 7.0 D Ur Specific Jachin 1.020 Urine Protein Negative Urine Glucose (UA) 1+ H Urine Ketones Negative Urine Blood Negative Urine Nitrite Negative Urine Bilirubin Negative Urine Urobilinogen 2.0 e.u/dl H Ur Leukocyte Esterase Negative 12/20/16 12/20/16 12/20/16 05:35 05:35 05:35 WBC 4.1 RBC 4.89 Hgb 11.7 Hct 36.7 MCV 75.1 L MCH 23.9 L MCHC 31.9 L RDW 16.0 H Plt Count 230 MPV 9.2 INR 1.70 H Sodium 143 Potassium 4.1 Chloride 110 H Carbon Dioxide 25 Anion Gap 8 BUN 12 Creatinine 1.0 Creat Clearance w eGFR 52.95 POC Glucometer Random Glucose 105 D Hemoglobin A1c % Calcium 9.0 Total Bilirubin 0.5 D AST 17 ALT 20 D Alkaline Phosphatase 87 Total Protein 7.7 Albumin 3.7 Triglycerides 87 Cholesterol 216 H Total LDL Cholesterol 143 H HDL Cholesterol 60 D TSH 2.42 D Free T4 1.04 D Urine Color Urine Appearance Urine pH Ur Specific Jachin Urine Protein Urine Glucose (UA) Urine Ketones Urine Blood Urine Nitrite Urine Bilirubin Urine Urobilinogen Ur Leukocyte Esterase 12/20/16 12/20/16 12/20/16 05:35 05:35 11:33 WBC RBC Hgb Hct MCV MCH MCHC RDW Plt Count MPV INR Sodium Potassium Chloride Carbon Dioxide Anion Gap BUN Creatinine Creat Clearance w eGFR POC Glucometer 156 Random Glucose Hemoglobin A1c % 8.6 H D Calcium Total Bilirubin AST ALT Alkaline Phosphatase Total Protein Albumin Triglycerides Cancelled Cholesterol Cancelled Total LDL Cholesterol Cancelled HDL Cholesterol Cancelled TSH Free T4 Urine Color Urine Appearance Urine pH Ur Specific Jachin Urine Protein Urine Glucose (UA) Urine Ketones Urine Blood Urine Nitrite Urine Bilirubin Urine Urobilinogen Ur Leukocyte Esterase 12/20/16 15:33 WBC RBC Hgb Hct MCV MCH MCHC RDW Plt Count MPV INR Sodium Potassium Chloride Carbon Dioxide Anion Gap BUN Creatinine Creat Clearance w eGFR POC Glucometer 124 Random Glucose Hemoglobin A1c % Calcium Total Bilirubin AST ALT Alkaline Phosphatase Total Protein Albumin Triglycerides Cholesterol Total LDL Cholesterol HDL Cholesterol TSH Free T4 Urine Color Urine Appearance Urine pH Ur Specific Jachin Urine Protein Urine Glucose (UA) Urine Ketones Urine Blood Urine Nitrite Urine Bilirubin Urine Urobilinogen Ur Leukocyte Esterase Micro: none Studies: CXR (12/19) - (my read) Widened aortic knob. No infiltrates or vascular congestion. Mild cardiomegaly. Blunting of R CP angle. Active Medications Generic Name Dose Route Start Last Admin Trade Name Freq PRN Reason Stop Dose Admin Acetaminophen 650 mg 12/19/16 23:29 Tylenol - PO Q6H PRN FEVER OR PAIN Albuterol/Ipratropium 1 amp 12/19/16 23:30 Duoneb - NEB Q6H PRN SHORTNESS OF BREATH Amlodipine Besylate 10 mg 12/20/16 11:45 12/20/16 11:50 Norvasc - PO 10 mg DAILY ADRI Administration Aspirin 81 mg 12/20/16 10:00 12/20/16 10:11 Ecotrin - PO 81 mg DAILY ADRI Administration Atorvastatin Calcium 20 mg 12/20/16 22:00 Lipitor - PO HS ADRI Folic Acid 1 mg 12/20/16 10:00 12/20/16 10:11 Folic Acid - PO 1 mg DAILY ADRI Administration Glimepiride 4 mg 12/20/16 07:00 12/20/16 10:11 Amaryl - PO 4 mg DAILY@0700 [facility] Administration Insulin Aspart 1 vial 12/20/16 07:00 12/20/16 16:07 Novolog Vial Sliding Scale - SQ Not Given TIDAC [facility] Protocol Pregabalin 50 mg 12/20/16 06:00 12/20/16 14:33 Lyrica - PO 50 mg TID ADRI Administration Sitagliptin Phosphate 50 mg 12/21/16 07:00 Januvia - PO DAILY@0700 [facility] Warfarin Sodium 6 mg 12/20/16 18:00 Coumadin - PO DAILY@1800 [facility] ASSESSMENT/PLAN: 81 yo woman w/ pmh of HTN, anemia, COPD, CAD, DM2, HLD who presents w/ multiple pre-syncopal episodes over past 3 weeks, in the setting of worsening exercise tolerance and dyspnea on exertion of roughly 1 week duration. Physical exam notable for normal pulm and cardiac exam. No significant interval change on CXR , w/ unremarkable EKG. Patient's condition likely cardiogenic in nature, requiring further evaluation. 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 Pt appear non- infectious and will require formal COPD workup. Syncope COPD P HTN Suspected CTEPH Assessment: Plan: #Presyncope - ECHO - Consider carotid U/S - Telemetry #COPD? - PFTs - Exercise O2 sat challenge - Inhaled bronchodilators - O2 NC PRN #Possible CTEPH - CTA r/o PE - Increase coumadin 5 mg -> 7.5 mg; INR goal >2 - Consider LE duplex U/S Hadley Singh MD, PGY1 Discussed with attending, Dr. Calabrese Dispo: We will continue to follow the patient. Thank you for this consultative opportunity. Problem List - Problems (1) Dizziness and giddiness Code(s): R42 - DIZZINESS AND GIDDINESS (2) Exertional dyspnea Code(s): R06.09 - OTHER FORMS OF DYSPNEA (3) Near syncope Code(s): R55 - SYNCOPE AND COLLAPSE Visit type - Emergency Visit Emergency Visit: No - New Patient This patient is new to me today: Yes Date on this admission: 12/20/16 - Critical Care Critical Care patient: No
[2016-12-20] MEDS ORDERED: WARFARIN NA 5 MG TABLET (UD) PO SCH (18:00)
[2016-12-20] MEDS ORDERED: WARFARIN NA 3 MG TABLET PO SCH (18:00)
[2016-12-20] MEDS: ATORVASTATIN CA 20 MG TABLET (FP) PO SCH (21:57)
--- NOTE | 2016-12-21 00:05 | PN ---
Progress Note, Physician Chief Complaint: ambulating no complaint History of Present Illness: dm,htn ashd,sp near syncope now clinically stable denies weakness or cp - Current Medication List Current Medications: Active Medications Acetaminophen (Tylenol -) 650 mg PO Q6H PRN PRN Reason: FEVER OR PAIN Albuterol/Ipratropium (Duoneb -) 1 amp NEB Q6H PRN PRN Reason: SHORTNESS OF BREATH Amlodipine Besylate (Norvasc -) 10 mg PO DAILY [facility]CLUDES [facility] Last Admin: 12/20/16 11:50 Dose: 10 mg Aspirin (Ecotrin -) 81 mg PO DAILY [facility] Last Admin: 12/20/16 10:11 Dose: 81 mg Atorvastatin Calcium (Lipitor -) 20 mg PO HS [facility] Last Admin: 12/20/16 21:57 Dose: 20 mg Folic Acid (Folic Acid -) 1 mg PO DAILY [facility] Last Admin: 12/20/16 10:11 Dose: 1 mg Glimepiride (Amaryl -) 4 mg PO DAILY@0700 [facility] Last Admin: 12/20/16 10:11 Dose: 4 mg Insulin Aspart (Novolog Vial Sliding Scale -) 1 vial SQ TIDAC COUNT [facility]CLUDES [facility] PRN Reason: Protocol Last Admin: 12/20/16 16:07 Dose: Not Given Pregabalin (Lyrica -) 50 mg PO TID [facility]CLUD[facility] Last Admin: 12/20/16 21:57 Dose: 50 mg Sitagliptin Phosphate (Januvia -) 50 mg PO DAILY@0700 [facility] Warfarin Sodium (Coumadin -) 6 mg PO DAILY@1800 [facility] Last Admin: 12/20/16 17:59 Dose: 6 mg - Objective Vital Signs: Vital Signs Temperature 97.8 F 12/20/16 21:50 Pulse Rate 73 12/20/16 21:50 Respiratory Rate 20 12/20/16 21:50 Blood Pressure 136/74 12/20/16 21:50 O2 Sat by Pulse Oximetry (%) 95 12/20/16 20:15 Constitutional: Yes: No Distress Eyes: Yes: EOM Intact HENT: Yes: Normocephalic Neck: Yes: Trachea Midline Cardiovascular: Yes: Regular Rate and Rhythm Respiratory: Yes: CTA Bilaterally Gastrointestinal: Yes: Normal Bowel Sounds ...Rectal Exam: Yes: WNL Genitourinary: Yes: WNL Breast(s): Yes: WNL Musculoskeletal: Yes: WNL Extremities: Yes: WNL Edema: No Peripheral Pulses WNL: Yes Integumentary: Yes: WNL Neurological: Yes: Alert, Oriented, Numbness, Weakness ...Motor Strength: WNL Psychiatric: Yes: Alert, Oriented Labs: CBC, BMP 12/20/16 05:35 12/20/16 05:35 INR, PTT INR 1.70 (0.82-1.09) H 12/20/16 05:35 Problem List - Problems (1) Abdominal pain Code(s): R10.9 - UNSPECIFIED ABDOMINAL PAIN (2) Acute renal failure Code(s): N17.9 - ACUTE KIDNEY FAILURE, UNSPECIFIED (3) Anemia Code(s): D64.9 - ANEMIA, UNSPECIFIED (4) Diabetes mellitus Code(s): E11.9 - TYPE 2 DIABETES MELLITUS WITHOUT COMPLICATIONS Qualifiers: Diabetes mellitus type: type 2 Assessment/Plan Current Active Problems Dizziness and giddiness (Acute) Exertional dyspnea (Acute) Near syncope (Acute) Abnormal Lab Results 12/19/16 12/20/16 12/20/16 23:17 05:35 05:35 MCV 75.1 L MCH 23.9 L MCHC 31.9 L RDW 16.0 H INR Chloride 110 H Hemoglobin A1c % Cholesterol 216 H Total LDL Cholesterol 143 H Urine Glucose (UA) 1+ H Urine Urobilinogen 2.0 e.u/dl H 12/20/16 12/20/16 05:35 05:35 MCV MCH MCHC RDW INR 1.70 H Chloride Hemoglobin A1c % 8.6 H D Cholesterol Total LDL Cholesterol Urine Glucose (UA) Urine Urobilinogen plan: bgm bid continue with glimepiride 2 mg daily ck 24 hr holter Current Medications Generic Name Dose Route Start Last Admin Trade Name Freq PRN Reason Stop Dose Admin Acetaminophen 650 mg 12/19/16 23:29 Tylenol - PO Q6H PRN FEVER OR PAIN Albuterol/Ipratropium 1 amp 12/19/16 23:30 Duoneb - NEB Q6H PRN SHORTNESS OF BREATH Amlodipine Besylate 10 mg 12/20/16 11:45 12/20/16 11:50 Norvasc - PO 10 mg DAILY ADRI Administration Aspirin 81 mg 12/20/16 10:00 12/20/16 10:11 Ecotrin - PO 81 mg DAILY [facility] Administration Atorvastatin Calcium 20 mg 12/20/16 22:00 12/20/16 21:57 Lipitor - PO 20 mg HS [facility]RI Administration Folic Acid 1 mg 12/20/16 10:00 12/20/16 10:11 Folic Acid - PO 1 mg DAILY [facility] Administration Glimepiride 4 mg 12/20/16 07:00 12/20/16 10:11 Amaryl - PO 4 mg DAILY@0700 [facility] Administration Insulin Aspart 1 vial 12/20/16 07:00 12/20/16 16:07 Novolog Vial Sliding Scale - SQ Not Given TIDAC COUNT [facility]CLUDES [facility] Protocol Pregabalin 50 mg 12/20/16 06:00 12/20/16 21:57 Lyrica - PO 50 mg TID [facility] Administration Sitagliptin Phosphate 50 mg 12/21/16 07:00 Januvia - PO DAILY@0700 [facility] Warfarin Sodium 6 mg 12/20/16 18:00 12/20/16 17:59 Coumadin - PO 6 mg DAILY@1800 [facility] Administration
[2016-12-21] MEDS: PREGABALIN 50 MG CAPSULE PO SCH ×3 (05:55→22:15)
[2016-12-21] MEDS: INSULIN SLIDING SCALE (NOVOLOG) 1 VIAL SQ SCH ×3 (06:52→15:46)
[2016-12-21] MEDS: sitaGLIPtin PHOSPHATE 50 MG TABLET PO SCH (08:01)
[2016-12-21] MEDS: GLIMEPIRIDE 4 MG TABLET (FP) PO SCH (08:01)
[2016-12-21] MEDS: ASPIRIN COATED 81 MG TABLET.EC PO SCH (10:04)
[2016-12-21] MEDS: amLODIPine BESYLATE 10 MG TABLET (FP) PO SCH (10:04)
[2016-12-21] MEDS: FOLIC ACID 1 MG TABLET (FP) PO SCH (10:04)
--- NOTE | 2016-12-21 10:35 | PN ---
Teaching Attending Note Name of Resident: Hadley Singh ATTENDING PHYSICIAN STATEMENT I saw and evaluated the patient. I reviewed the resident's note and discussed the case with the resident. I agree with the resident's findings and plan as documented. PULMONARY ALERT,-CP,+DYSPNEA WITH MIN EXERTION IMP NEAR SYNCOPE DYSPNEA ASHD ? DIASTOLIC DYSFUNCTION HTN HLD H/O PE X 2 H/O DVT ? COPD PLAN O2 PRN CARDIAC W/U IN PROGRESS INHALED BRONCHODILATORS PRN PFTS OUTPATIENT CHEST CTA O2 SAT AT REST ON POST EXERCISE ON RA COUMADIN PER INR DR FERRELL Problem List - Problems (1) Dizziness and giddiness Code(s): R42 - DIZZINESS AND GIDDINESS (2) Exertional dyspnea Code(s): R06.09 - OTHER FORMS OF DYSPNEA (3) Near syncope Code(s): R55 - SYNCOPE AND COLLAPSE (4) Weakness Code(s): R53.1 - WEAKNESS (5) CAD (coronary artery disease) Code(s): I25.10 - ATHSCL HEART DISEASE OF [place] CORONARY ARTERY W/O ANG PCTRS (6) Diabetes mellitus Code(s): E11.9 - TYPE 2 DIABETES MELLITUS WITHOUT COMPLICATIONS Qualifiers: Diabetes mellitus type: type 2 (7) HLD (hyperlipidemia) Code(s): E78.5 - HYPERLIPIDEMIA, UNSPECIFIED (8) HTN (hypertension) Code(s): I10 - ESSENTIAL (PRIMARY) HYPERTENSION Qualifiers: (9) Thyroid nodule Code(s): E04.1 - NONTOXIC SINGLE THYROID NODULE (10) Type 2 diabetes mellitus with diabetic neuropathy, unspecified Code(s): E11.40 - TYPE 2 DIABETES MELLITUS WITH DIABETIC NEUROPATHY, UNSP (11) Pulmonary embolism Code(s): I26.99 - OTHER PULMONARY EMBOLISM WITHOUT ACUTE COR PULMONALE
--- NOTE | 2016-12-21 11:46 | CON.NEURO ---
Consult Consult Specialty:: Neurology Reason for Consultation:: Syncope - History of Present Illness Chief Complaint: Syncope History of Present Illness: Patient reports three episodes over the past year of syncope. The episodes have all been while she has been standing. She says that they were all preceded by feeling acutely dizzy, lightheaded rather than vertiginous, followed by passing out very quickly afterwards. She says that the dizziness comes on very quickly and without warning, except in one instance she felt heart palpitations before hand. The episodes have not occurred while she is lying or sitting. They were not precipitated by change in posture. She can identify no other precipitants as one occurred shortly after micturition, one occurred after walking a block, and the other neither. She has not had any stimata of seizures. She has had no vertigo during these, though she has had vertigo in the past but not in a year, and none of these episodes felt anything like that. She has had no history of strokes or seizures. - History Source History Provided By: Patient, Medical Record Limitations to Obtaining History: No Limitations - Past Medical History Cardio/Vascular: Yes: Pulmonary Hypertension, CAD (reported CAD), HTN, Hyperlipdemia, Aortic Insufficiency Pulmonary: Yes: Pulmonary Embolus (following ~50 years ago, and again in 2014 while hospitalzied for shingles per patient's report) Gastrointestinal: Yes: GERD Endocrine: Yes: Diabetes Mellitus, Other (mutlinodular goitre) - Past Surgical History Past Surgical History: Yes: (x5), Hysterectomy (JANINE ~ 40 years ago) - Alcohol/Substance Use Hx Alcohol Use: No History of Substance Use: reports: None - Smoking History Smoking history: Never smoked Have you smoked in the past 12 months: No Aproximately how many cigarettes per day: 0 Home Medications - Allergies Allergies/Adverse Reactions: Allergies Allergy/AdvReac Type Severity Reaction Status Date / Time lactose AdvReac Severe Verified 12/19/16 12:30 - Home Medications Home Medications: Ambulatory Orders Aspirin [ASA -] 81 mg PO DAILY #0 tab.chew 12/14/11 Folic Acid - 1 mg PO DAILY 07/06/13 Atorvastatin Ca [Lipitor] 10 mg PO HS 07/27/14 Pregabalin [Lyrica -] 50 mg PO TID #90 capsule MDD 3 10/17/15 Amlodipine Besylate [Norvasc -] 10 mg PO DAILY #30 tablet 02/23/16 Glimepiride [Amaryl] 4 mg PO DAILY 08/14/16 Warfarin Na [Coumadin -] 5 mg PO DAILY@1800 08/14/16 Pantoprazole Sodium [Protonix -] 40 mg PO DAILY #30 08/19/16 Family Disease History - Family Disease History Family Disease History: Diabetes: Sister, Heart Disease: Brother, CA: Father ( colon cancer), Sister Physical Exam-Neuro Vital Signs: Vital Signs Temperature 98.4 F 12/21/16 08:30 Pulse Rate 76 12/21/16 08:30 Respiratory Rate 20 12/21/16 08:30 Blood Pressure 132/79 12/21/16 08:30 O2 Sat by Pulse Oximetry (%) 95 12/20/16 20:15 Labs: CBC, BMP 12/20/16 05:35 12/20/16 05:35 INR, PTT INR 1.70 (0.82-1.09) H 12/20/16 05:35 NIH Stroke Scale - Total Score NIH Stroke Scale Score: 0 Imaging - Results Cat Scan: Report Reviewed (negative) Ultrasound: Report Reviewed (carotid studies negative) Problem List - Problems (1) Near syncope Assessment/Plan: this doesn't sound neurologic and the pre-event feeling of brief lightheadedness and one occasion of palpitations suggest the heart. We'll sign off, but please call if you have any additional questions. Code(s): R55 - SYNCOPE AND COLLAPSE
--- NOTE | 2016-12-21 11:57 | PN ---
Progress Note, Physician Chief Complaint: echo done report noted no new change from previous to get carotid angio today to visualize left vertebral arteries still has holter monitor on - Current Medication List Current Medications: Active Medications Acetaminophen (Tylenol -) 650 mg PO Q6H PRN PRN Reason: FEVER OR PAIN Albuterol/Ipratropium (Duoneb -) 1 amp NEB Q6H PRN PRN Reason: SHORTNESS OF BREATH Amlodipine Besylate (Norvasc -) 10 mg PO DAILY [facility] Last Admin: 12/21/16 10:04 Dose: 10 mg Aspirin (Ecotrin -) 81 mg PO DAILY [facility] Last Admin: 12/21/16 10:04 Dose: 81 mg Atorvastatin Calcium (Lipitor -) 20 mg PO HS [facility] Last Admin: 12/20/16 21:57 Dose: 20 mg Folic Acid (Folic Acid -) 1 mg PO DAILY [facility] Last Admin: 12/21/16 10:04 Dose: 1 mg Glimepiride (Amaryl -) 4 mg PO DAILY@0700 [facility] Last Admin: 12/21/16 08:01 Dose: 4 mg Insulin Aspart (Novolog Vial Sliding Scale -) 1 vial SQ TIDAC [facility] PRN Reason: Protocol Last Admin: 12/21/16 11:44 Dose: Not Given Pregabalin (Lyrica -) 50 mg PO TID [facility] Last Admin: 12/21/16 05:55 Dose: 50 mg Sitagliptin Phosphate (Januvia -) 50 mg PO DAILY@0700 [facility] Last Admin: 12/21/16 08:01 Dose: Not Given Warfarin Sodium (Coumadin -) 6 mg PO DAILY@1800 [facility] Last Admin: 12/20/16 17:59 Dose: 6 mg - Objective Vital Signs: Vital Signs Temperature 98.4 F 12/21/16 08:30 Pulse Rate 76 12/21/16 08:30 Respiratory Rate 20 12/21/16 08:30 Blood Pressure 132/79 12/21/16 08:30 O2 Sat by Pulse Oximetry (%) 95 12/20/16 20:15 Constitutional: Yes: Calm Neck: Yes: Trachea Midline Cardiovascular: Yes: Regular Rate and Rhythm, S1, S2 Respiratory: Yes: CTA Bilaterally Gastrointestinal: Yes: Normal Bowel Sounds, Soft Edema: No Neurological: Yes: Alert, Oriented Labs: CBC, BMP 12/20/16 05:35 12/20/16 05:35 INR, PTT INR 1.70 (0.82-1.09) H 12/20/16 05:35 Problem List - Problems (1) Near syncope Assessment/Plan: patient ambulating with PT in hallway no symptoms tele cardio consult appreiciated echo normal holter still on report is pending neuro eval noted ct negative carotid doppler could not visualize left vertebral arteries will get ct angio of carotids carotid dopplers done if ct angio negative and holter report is ok then will sent patient home tmw Code(s): R55 - SYNCOPE AND COLLAPSE (2) Diabetes mellitus Assessment/Plan: appreciate endo note [id number] noted amaryl start januvia sliding scale will monitor Code(s): E11.9 - TYPE 2 DIABETES MELLITUS WITHOUT COMPLICATIONS Qualifiers: Diabetes mellitus type: type 2 (3) HLD (hyperlipidemia) Assessment/Plan: statin dose increased from 10 to 20mg Code(s): E78.5 - HYPERLIPIDEMIA, UNSPECIFIED (4) HTN (hypertension) Assessment/Plan: on [id number] will monitor stable Code(s): I10 - ESSENTIAL (PRIMARY) HYPERTENSION Qualifiers: (5) CAD (coronary artery disease) Assessment/Plan: statin and aspirin Code(s): I25.10 - ATHSCL HEART DISEASE OF [place] CORONARY ARTERY W/O ANG PCTRS
[2016-12-21 13:59] LABS: INR 1.91 (0.82-1.09); PROTHROMBIN TIME (PATIENT) 21.3 SEC (9.98-11.88)
--- NOTE | 2016-12-21 14:30 | PN ---
Physical Exam: SUBJECTIVE: Patient seen and examined by me - Pt doing well. Denies cough, fever, SOB, dizziness, or lightheadness - Ambulated with nursing staff with no presyncopal episodes. States that she normal exercises more strenuously and is worried about another episode during her daily routine - Still mild SOB with activity Other updates: Going for CT today. No micro pending. OBJECTIVE: Vital Signs Period Temp Pulse Resp BP Sys/Bee Pulse Ox Last 24 Hr 97.4 F-99.2 F 71-87 18-20 128-139/74-85 93-95 GENERAL: Awake, alert, and fully oriented, in no acute distress. HEAD: Normal with no signs of trauma. EYES: PERRLA. Arcus senilis noted. Extraocular movements intact, sclera anicteric, conjunctiva clear. No lid lag. EARS, NOSE, THROAT: Ears normal, nares patent, oropharynx clear without exudates. Moist mucous membranes. NECK: Supple without lymphadenopathy, JVD, or masses. LUNGS: Faint bibasilar crackles in LL carranza. No accessory muscle use or wheeze noted. HEART: Regular rate and rhythm, normal S1 and S2 without murmur, rub or gallop. ABDOMEN: Soft, nontender, globular, hypoactive bowel sounds, no guarding, no rebound, no masses. No hepatomegaly or splenomegaly. MUSCULOSKELETAL: No CVA tenderness. UPPER EXTREMITIES: 2+ pulses, warm, well-perfused. No cyanosis. No clubbing. Cap refill <2 seconds. No peripheral edema. LOWER EXTREMITIES: 2+ pulses, warm, well-perfused. 1+ BL LE edema. L discrete posterior edema BTK. NEUROLOGICAL: Normal speech. Normal gait. Slow speech. PSYCHIATRIC: Cooperative. Good eye contact. Appropriate mood and affect. SKIN: Warm, dry, normal turgor, no rashes or lesions noted. Laboratory Results - last 24 hr 12/20/16 12/20/16 12/21/16 15:33 22:47 05:23 INR POC Glucometer 124 128 95 12/21/16 12:50 INR 1.91 H POC Glucometer Active Medications Generic Name Dose Route Start Last Admin Trade Name Freq PRN Reason Stop Dose Admin Acetaminophen 650 mg 12/19/16 23:29 Tylenol - PO Q6H PRN FEVER OR PAIN Albuterol/Ipratropium 1 amp 12/19/16 23:30 Duoneb - NEB Q6H PRN SHORTNESS OF BREATH Amlodipine Besylate 10 mg 12/20/16 11:45 12/21/16 10:04 Norvasc - PO 10 mg DAILY [facility] Administration Aspirin 81 mg 12/20/16 10:00 12/21/16 10:04 Ecotrin - PO 81 mg DAILY [facility] Administration Atorvastatin Calcium 20 mg 12/20/16 22:00 12/20/16 21:57 Lipitor - PO 20 mg HS [facility] Administration Folic Acid 1 mg 12/20/16 10:00 12/21/16 10:04 Folic Acid - PO 1 mg DAILY [facility] Administration Glimepiride 4 mg 12/20/16 07:00 12/21/16 08:01 Amaryl - PO 4 mg DAILY@0700 [facility] Administration Insulin Aspart 1 vial 12/20/16 07:00 12/21/16 11:44 Novolog Vial Sliding Scale - SQ Not Given TIDAC [facility] Protocol Pregabalin 50 mg 12/20/16 06:00 12/21/16 13:59 Lyrica - PO 50 mg TID [facility] Administration Sitagliptin Phosphate 50 mg 12/21/16 07:00 12/21/16 08:01 Januvia - PO Not Given DAILY@0700 [facility] Warfarin Sodium 6 mg 12/20/16 18:00 12/20/16 17:59 Coumadin - PO 6 mg DAILY@1800 [facility] Administration ASSESSMENT/PLAN: 81 yo woman w/ pmh of HTN, anemia, COPD, CAD, DM2, HLD who presents w/ multiple pre-syncopal episodes over past 3 weeks, in the setting of worsening exercise tolerance and dyspnea on exertion of roughly 1 week duration. Physical exam notable for normal pulm and cardiac exam. No significant interval change on CXR , w/ unremarkable EKG. Patient's condition likely cardiogenic in nature, requiring further evaluation. 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 Pt appear non- infectious and will require formal COPD workup. Syncope COPD P HTN? Suspected CTEPH Diastolic dysfunction HTN HLD Multiple PEs Assessment: Plan: #Presyncope - Cardiac W/U pending - Telemetry - Review carotid U/S, LE doppler results #COPD? - PFTs - Exercise O2 sat challenge - Inhaled Brochodilators (duoneb) - O2 NC PRN #Possible CTEPH - Patient going for CTA today - Dual platelet Tx; ASA 81/coumadin 6 mg; INR goal >2 - Consider LE duplex U/S Hadley Singh MD, PGY1 Will discuss with attending in AM, Dr. Calabrese Problem List - Problems (1) Dizziness and giddiness Code(s): R42 - DIZZINESS AND GIDDINESS (2) Exertional dyspnea Code(s): R06.09 - OTHER FORMS OF DYSPNEA (3) Near syncope Code(s): R55 - SYNCOPE AND COLLAPSE Visit type - Emergency Visit Emergency Visit: No - New Patient This patient is new to me today: No - Critical Care Critical Care patient: No
[2016-12-21] MEDS ORDERED: WARFARIN NA 7.5 MG TABLET (FP) PO ONE (18:00)
[2016-12-21] MEDS: ATORVASTATIN CA 20 MG TABLET (FP) PO SCH (22:15)
[2016-12-22] MEDS: INSULIN SLIDING SCALE (NOVOLOG) 1 VIAL SQ SCH ×3 (06:50→16:16)
[2016-12-22] MEDS: sitaGLIPtin PHOSPHATE 50 MG TABLET PO SCH (07:03)
[2016-12-22] MEDS: PREGABALIN 50 MG CAPSULE PO SCH ×3 (07:03→21:07)
[2016-12-22] MEDS: GLIMEPIRIDE 4 MG TABLET (FP) PO SCH (07:03)
[2016-12-22 08:21] LABS: INR 2.26 (0.82-1.09); PROTHROMBIN TIME (PATIENT) 25.3 SEC (9.98-11.88)
[2016-12-22] MEDS: ASPIRIN COATED 81 MG TABLET.EC PO SCH ×2 (08:39→09:28)
[2016-12-22] MEDS: FOLIC ACID 1 MG TABLET (FP) PO SCH ×2 (08:39→09:28)
[2016-12-22] MEDS: amLODIPine BESYLATE 10 MG TABLET (FP) PO SCH ×2 (08:39→09:28)
[2016-12-22 09:36] LABS: ANION GAP 10 (8-16); CALCIUM 8.7 mg/dL (8.5-10.1); CO2 25 mmol/L (21-32); GLUCOSE,RANDOM 112 mg/dL (74-106)
--- NOTE | 2016-12-22 11:02 | PN ---
Teaching Attending Note Name of Resident: Hadley Singh ATTENDING PHYSICIAN STATEMENT I saw and evaluated the patient. I reviewed the resident's note and discussed the case with the resident. I agree with the resident's findings and plan as documented.P PULMONARY ALERT,NO CHANGE +DAVIES,-CP IMP NEAR SYNCOPE DYSPNEA ASHD ? DIASTOLIC DYSFUNCTION HTN HLD H/O PE X 2 H/O DVT ? COPD PLAN O2 PRN INHALED BRONCHODILATORS PRN PFTS OUTPATIENT CHEST CTA PENDING O2 SAT AT REST ON POST EXERCISE ON RA COUMADIN PER INR DR FERRELL Problem List - Problems (1) Dizziness and giddiness Code(s): R42 - DIZZINESS AND GIDDINESS (2) Exertional dyspnea Code(s): R06.09 - OTHER FORMS OF DYSPNEA (3) Near syncope Code(s): R55 - SYNCOPE AND COLLAPSE (4) Weakness Code(s): R53.1 - WEAKNESS (5) CAD (coronary artery disease) Code(s): I25.10 - ATHSCL HEART DISEASE OF [place] CORONARY ARTERY W/O ANG PCTRS (6) Diabetes mellitus Code(s): E11.9 - TYPE 2 DIABETES MELLITUS WITHOUT COMPLICATIONS Qualifiers: Diabetes mellitus type: type 2 (7) HLD (hyperlipidemia) Code(s): E78.5 - HYPERLIPIDEMIA, UNSPECIFIED (8) HTN (hypertension) Code(s): I10 - ESSENTIAL (PRIMARY) HYPERTENSION Qualifiers: (9) Thyroid nodule Code(s): E04.1 - NONTOXIC SINGLE THYROID NODULE (10) Type 2 diabetes mellitus with diabetic neuropathy, unspecified Code(s): E11.40 - TYPE 2 DIABETES MELLITUS WITH DIABETIC NEUROPATHY, UNSP (11) Pulmonary embolism Code(s): I26.99 - OTHER PULMONARY EMBOLISM WITHOUT ACUTE COR PULMONALE Problem List - Problems (1) Dizziness and giddiness Code(s): R42 - DIZZINESS AND GIDDINESS (2) Exertional dyspnea Code(s): R06.09 - OTHER FORMS OF DYSPNEA (3) Near syncope Code(s): R55 - SYNCOPE AND COLLAPSE (4) Weakness Code(s): R53.1 - WEAKNESS (5) CAD (coronary artery disease) Code(s): I25.10 - ATHSCL HEART DISEASE OF [place] CORONARY ARTERY W/O ANG PCTRS (6) Diabetes mellitus Code(s): E11.9 - TYPE 2 DIABETES MELLITUS WITHOUT COMPLICATIONS Qualifiers: Diabetes mellitus type: type 2 (7) HLD (hyperlipidemia) Code(s): E78.5 - HYPERLIPIDEMIA, UNSPECIFIED (8) HTN (hypertension) Code(s): I10 - ESSENTIAL (PRIMARY) HYPERTENSION Qualifiers: (9) Thyroid nodule Code(s): E04.1 - NONTOXIC SINGLE THYROID NODULE (10) Type 2 diabetes mellitus with diabetic neuropathy, unspecified Code(s): E11.40 - TYPE 2 DIABETES MELLITUS WITH DIABETIC NEUROPATHY, UNSP (11) Pulmonary embolism Code(s): I26.99 - OTHER PULMONARY EMBOLISM WITHOUT ACUTE COR PULMONALE
--- NOTE | 2016-12-22 13:26 | PN ---
Progress Note, Physician Chief Complaint: weakness History of Present Illness: comfortable, NAD - Current Medication List Current Medications: Active Medications Acetaminophen (Tylenol -) 650 mg PO Q6H PRN PRN Reason: FEVER OR PAIN Albuterol/Ipratropium (Duoneb -) 1 amp NEB Q6H PRN PRN Reason: SHORTNESS OF BREATH Amlodipine Besylate (Norvasc -) 10 mg PO DAILY [facility] Last Admin: 12/22/16 09:28 Dose: Not Given Aspirin (Ecotrin -) 81 mg PO DAILY [facility] Last Admin: 12/22/16 09:28 Dose: Not Given Atorvastatin Calcium (Lipitor -) 20 mg PO HS [facility] Last Admin: 12/21/16 22:15 Dose: 20 mg Folic Acid (Folic Acid -) 1 mg PO DAILY [facility] Last Admin: 12/22/16 09:28 Dose: Not Given Glimepiride (Amaryl -) 4 mg PO DAILY@0700 [facility] Last Admin: 12/22/16 07:03 Dose: 4 mg Insulin Aspart (Novolog Vial Sliding Scale -) 1 vial SQ TIDAC [facility] PRN Reason: Protocol Last Admin: 12/22/16 11:38 Dose: Not Given Pregabalin (Lyrica -) 50 mg PO TID [facility] Last Admin: 12/22/16 07:03 Dose: 50 mg Sitagliptin Phosphate (Januvia -) 50 mg PO DAILY@0700 [facility] Last Admin: 12/22/16 07:03 Dose: 50 mg - Objective Vital Signs: Vital Signs Temperature 98.3 F 12/22/16 08:15 Pulse Rate 77 12/22/16 08:15 Respiratory Rate 20 12/22/16 08:15 Blood Pressure 128/72 12/22/16 08:15 O2 Sat by Pulse Oximetry (%) 97 12/22/16 11:00 Constitutional: Yes: Well Nourished, No Distress, Calm Cardiovascular: Yes: Regular Rate and Rhythm Respiratory: Yes: Regular Gastrointestinal: Yes: Normal Bowel Sounds Musculoskeletal: Yes: WNL Extremities: Yes: WNL Edema: No Peripheral Pulses WNL: Yes Labs: CBC, BMP 12/20/16 05:35 12/22/16 05:48 INR, PTT INR 2.26 (0.82-1.09) H 12/22/16 05:48 Problem List - Problems (1) Dizziness and giddiness Code(s): R42 - DIZZINESS AND GIDDINESS (2) Near syncope Assessment/Plan: CT head negative -Carotid U/S suggested CTA -CTA unremarkable -ordered CTA chest as per pulmonary to r/o PE, she was mildly sub-therapeutic on warfarin upon her admission Code(s): R55 - SYNCOPE AND COLLAPSE (3) Diabetes mellitus Assessment/Plan: -uncontrolled with hga1c at 8.6 -on insulin sliding scale Code(s): E11.9 - TYPE 2 DIABETES MELLITUS WITHOUT COMPLICATIONS Qualifiers: Diabetes mellitus type: type 2 Assessment/Plan -seen by pulmonary -CTA chest -U/S doppler BLLE -INR in AM -GI prophylaxis
--- NOTE | 2016-12-22 16:50 | PN ---
Physical Exam: SUBJECTIVE: Patient seen and examined me in PM - Pt is doing well with no complaints. Denies any fever, RIBERA, SOB, cough, syncope , N/V. Endorses improved swelling in legs and no further presyncopal episodes. Ambulating well without assistance. Other updates: Coumadin held 12/21 for unknown reasons. Restarted on 7.5 PO daily given Hx of multiple PEs and suspicion for CTEPH. Recheck INR. OBJECTIVE: Vital Signs Period Temp Pulse Resp BP Sys/Bee Pulse Ox Last 24 Hr 97.0 F-98.4 F 67-82 18-20 122-143/71-77 95-97 GENERAL: Awake, alert, and fully oriented, in no acute distress. HEAD: Normal with no signs of trauma. EYES: PERRLA. Arcus senilis noted. Extraocular movements intact, sclera anicteric, conjunctiva clear. No lid lag. EARS, NOSE, THROAT: Ears normal, nares patent, oropharynx clear without exudates. Moist mucous membranes. NECK: Supple without lymphadenopathy, JVD, or masses. LUNGS: Lung carranza clear to auscultation BL. No accessory muscle use or wheeze noted. HEART: Regular rate and rhythm, normal S1 and S2 without rub or gallop. Possible grade 2/6 blowing systolic murmur noted at RUSB. ABDOMEN: Soft, nontender, globular, hypoactive bowel sounds, no guarding, no rebound, no masses. No hepatomegaly or splenomegaly. MUSCULOSKELETAL: No CVA tenderness. UPPER EXTREMITIES: Bilateral edematous/ecchymotic in antecubital fossas, likely due to failed IV/blood draw. 2+ radial and ulnar pulses, warm, well-perfused. No cyanosis. No clubbing. Cap refill <2 seconds. No peripheral edema. LOWER EXTREMITIES: 2+ pulses, warm, well-perfused. 1+ BL LE edema. L discrete posterior edema BTK. NEUROLOGICAL: Normal speech. Normal gait. Slow speech. PSYCHIATRIC: Cooperative. Good eye contact. Appropriate mood and affect. SKIN: Warm, dry, normal turgor, no rashes or lesions noted. Laboratory Results - last 24 hr 12/21/16 12/22/16 12/22/16 22:14 05:25 05:48 INR 2.26 H Sodium Potassium Chloride Carbon Dioxide Anion Gap BUN Creatinine POC Glucometer 168 121 Random Glucose Calcium 12/22/16 12/22/16 05:48 11:35 INR Sodium 141 Potassium 4.0 Chloride 106 Carbon Dioxide 25 Anion Gap 10 BUN 17 D Creatinine 1.0 POC Glucometer 191 Random Glucose 112 H Calcium 8.7 Active Medications Generic Name Dose Route Start Last Admin Trade Name Freq PRN Reason Stop Dose Admin Acetaminophen 650 mg 12/19/16 23:29 Tylenol - PO Q6H PRN FEVER OR PAIN Albuterol/Ipratropium 1 amp 12/19/16 23:30 Duoneb - NEB Q6H PRN SHORTNESS OF BREATH Amlodipine Besylate 10 mg 12/20/16 11:45 12/22/16 09:28 Norvasc - PO Not Given DAILY [facility] Aspirin 81 mg 12/20/16 10:00 12/22/16 09:28 Ecotrin - PO Not Given DAILY [facility] Atorvastatin Calcium 20 mg 12/20/16 22:00 12/21/16 22:15 Lipitor - PO 20 mg HS [facility] Administration Folic Acid 1 mg 12/20/16 10:00 12/22/16 09:28 Folic Acid - PO Not Given DAILY [facility] Glimepiride 4 mg 12/20/16 07:00 12/22/16 07:03 Amaryl - PO 4 mg DAILY@0700 [facility] Administration Insulin Aspart 1 vial 12/20/16 07:00 12/22/16 16:16 Novolog Vial Sliding Scale - SQ Not Given TIDAC [facility] Protocol Pregabalin 50 mg 12/20/16 06:00 12/22/16 13:27 Lyrica - PO 50 mg TID [facility] Administration Sitagliptin Phosphate 50 mg 12/21/16 07:00 12/22/16 07:03 Januvia - PO 50 mg DAILY@0700 [facility] Administration ASSESSMENT/PLAN: 81 yo woman w/ pmh of HTN, anemia, COPD, CAD, DM2, HLD who presents w/ multiple pre-syncopal episodes over past 3 weeks, in the setting of worsening exercise tolerance and dyspnea on exertion of roughly 1 week duration. Physical exam notable for normal pulm and cardiac exam. No significant interval change on CXR , w/ unremarkable EKG. Patient doing well with no further presyncopal episodes and subjective improvement in LE edema. 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 Pt appear non- infectious and will require formal COPD workup. Syncope COPD P HTN? Suspected CTEPH Diastolic dysfunction HTN HLD Multiple PEs Assessment: Plan: #Presyncope - Cardiac W/U pending - Telemetry - Review carotid U/S - Carotid CTA negative #COPD? - PFTs - Exercise O2 sat challenge - Inhaled Brochodilators (duoneb) - O2 NC PRN #Possible CTEPH - CTA-Chest tomorrow AM - Dual platelet Tx; ASA 81/Coumadin 7.5; INR goal >2 - Coumadin restarted 7.5 mg PO daily. Recheck INR - Consider LE duplex U/S Hadley Singh MD, PGY1 Will discuss with attending in AM, Dr. Calabrese Problem List - Problems (1) Dizziness and giddiness Code(s): R42 - DIZZINESS AND GIDDINESS (2) Exertional dyspnea Code(s): R06.09 - OTHER FORMS OF DYSPNEA (3) Near syncope Code(s): R55 - SYNCOPE AND COLLAPSE Visit type - Emergency Visit Emergency Visit: No - New Patient This patient is new to me today: No - Critical Care Critical Care patient: No
[2016-12-22] MEDS: WARFARIN NA 7.5 MG TABLET (FP) PO SCH (17:24)
[2016-12-22] MEDS: ATORVASTATIN CA 20 MG TABLET (FP) PO SCH (21:06)
[2016-12-23] MEDS: PREGABALIN 50 MG CAPSULE PO SCH ×3 (06:02→22:07)
[2016-12-23] MEDS: GLIMEPIRIDE 4 MG TABLET (FP) PO SCH ×2 (06:03→08:08)
[2016-12-23] MEDS: INSULIN SLIDING SCALE (NOVOLOG) 1 VIAL SQ SCH ×3 (06:03→16:45)
[2016-12-23] MEDS: sitaGLIPtin PHOSPHATE 50 MG TABLET PO SCH ×2 (06:03→08:08)
--- NOTE | 2016-12-23 07:14 | HOL ---
Hook-up date: 2016-12-20 10:51:00 Duration: 24:00:00 Test Indications: PALPITATIONS/ARRYTHMIA Medications: 011945 QRS complexes 201 Ventricular ectopics which represent <1 % of total QRS comp. 69 Supraventricular ectopics which represent <1 % of total QRS comp. * Paced QRS complexs which represent % of total QRS comp. * % of Time Classified as Noise VENTRICULAR ECTOPY 201 Isolated 0 Bigeminal Cycles 0 Couplets 0 Runs 0 Beats in Runs * Beats LONGEST at * BPM at :: -- * Beats FASTEST at * BPM at :: -- SUPRAVENTRICULAR ECTOPY 54 Isolated 4 Couplets 1 Runs 7 Beats in Runs 7 Beats LONGEST at 102 BPM at 05:29:21 2016-12-21 7 Beats FASTEST at 102 BPM at 05:29:21 2016-12-21 HEART RATES 56 MIN at 21:03:22 2016-12-20 71 AVG 119 MAX at 16:56:03 2016-12-20 LONGEST RR 1.584 secs at 21:03:18 2016-12-20 SCANNED BY JADA RODRIGUEZ 12/21/2016 1. Basic rhythm was sinus with a minimum heart rate of 56 BPM and maximum of 119 BPM. Average heart rate was 71 BPM. 2. There were rare VPB that were single and multifocal. 3. There were rare SPB's. 4. Nonspecific T wave abnormalities that were rate unrelated. 5. No diary was submitted. Confirmed by SHEIKH RIAN, EVELYN ([id number]), pictures editor RADHA BISHOP (1) on 12/23/2016 7:14:06 AM Referred By: Overread By: EVELYN WINSLOW MD
[2016-12-23 08:14] LABS: INR 2.79 (0.82-1.09); PROTHROMBIN TIME (PATIENT) 31.3 SEC (9.98-11.88)
[2016-12-23] MEDS: ASPIRIN COATED 81 MG TABLET.EC PO SCH (09:56)
[2016-12-23] MEDS: amLODIPine BESYLATE 10 MG TABLET (FP) PO SCH (09:57)
[2016-12-23] MEDS: FOLIC ACID 1 MG TABLET (FP) PO SCH (09:57)
[2016-12-23] MEDS: PANTOPRAZOLE 20 MG TABLET (FP) PO SCH (09:57)
--- NOTE | 2016-12-23 10:54 | PN ---
Progress Note, Physician - Current Medication List Current Medications: Active Medications Acetaminophen (Tylenol -) 650 mg PO Q6H PRN PRN Reason: FEVER OR PAIN Albuterol/Ipratropium (Duoneb -) 1 amp NEB Q6H PRN PRN Reason: SHORTNESS OF BREATH Amlodipine Besylate (Norvasc -) 10 mg PO DAILY [facility] Last Admin: 12/23/16 09:57 Dose: 10 mg Aspirin (Ecotrin -) 81 mg PO DAILY [facility] Last Admin: 12/23/16 09:56 Dose: 81 mg Atorvastatin Calcium (Lipitor -) 20 mg PO HS [facility] Last Admin: 12/22/16 21:06 Dose: 20 mg Folic Acid (Folic Acid -) 1 mg PO DAILY [facility] Last Admin: 12/23/16 09:57 Dose: 1 mg Glimepiride (Amaryl -) 4 mg PO DAILY@0700 [facility] Insulin Aspart (Novolog Vial Sliding Scale -) 1 vial SQ TIDAC [facility] PRN Reason: Protocol Pantoprazole Sodium (Protonix -) 20 mg PO DAILY [facility] Last Admin: 12/23/16 09:57 Dose: 20 mg Pregabalin (Lyrica -) 50 mg PO TID [facility] Last Admin: 12/23/16 06:02 Dose: 50 mg Warfarin Sodium (Coumadin -) 7.5 mg PO DAILY@1800 [facility] Last Admin: 12/22/16 17:24 Dose: 7.5 mg - Objective Vital Signs: Vital Signs Temperature 99.2 F 12/23/16 08:00 Pulse Rate 78 12/23/16 08:00 Respiratory Rate 18 12/23/16 08:00 Blood Pressure 116/65 12/23/16 08:00 O2 Sat by Pulse Oximetry (%) 97 12/23/16 10:00 Constitutional: Yes: Calm Neck: Yes: Trachea Midline Cardiovascular: Yes: Regular Rate and Rhythm, S1, S2 Respiratory: Yes: CTA Bilaterally Gastrointestinal: Yes: Normal Bowel Sounds, Soft Extremities: Yes: Other (fly pineda) Neurological: Yes: Alert, Oriented Labs: CBC, BMP 12/20/16 05:35 12/22/16 05:48 INR, PTT INR 2.79 (0.82-1.09) H 12/23/16 05:45 Problem List - Problems (1) Near syncope Assessment/Plan: today to get repeat BMP to check bun/cr and then to CTA chest CTA shows abnormality in hypopharynx- ENT consult ordered patient ambulating with PT in hallway no symptoms cardio consult appreiciated echo normal holter report noted- ok doppler of leg negative for DVT Code(s): R55 - SYNCOPE AND COLLAPSE (2) Diabetes mellitus Assessment/Plan: appreciate endo note hga1c noted amaryl 4mg per patient she takes amaryl 4mg bid at home given bgm here will continue amaryl 4mg daily in AM Code(s): E11.9 - TYPE 2 DIABETES MELLITUS WITHOUT COMPLICATIONS Qualifiers: Diabetes mellitus type: type 2 (3) HLD (hyperlipidemia) Code(s): E78.5 - HYPERLIPIDEMIA, UNSPECIFIED (4) HTN (hypertension) Code(s): I10 - ESSENTIAL (PRIMARY) HYPERTENSION Qualifiers: (5) CAD (coronary artery disease) Code(s): I25.10 - ATHSCL HEART DISEASE OF [place] CORONARY ARTERY W/O ANG PCTRS
[2016-12-23 11:42] LABS: ANION GAP 7 (8-16); CALCIUM 8.7 mg/dL (8.5-10.1); CO2 25 mmol/L (21-32); CREATININE 1.2 mg/dL (0.55-1.02); GLUCOSE,RANDOM 127 mg/dL (74-106)
--- NOTE | 2016-12-23 12:43 | PN ---
Physical Exam: SUBJECTIVE: Patient seen and examined by me in AM - Doing well, no major complaints. Some hoarseness when talking and improvement in LE edema. Denies cough, fever, presyncope, N/V, RIBERA, dyspnea on exertion, orthopnea, unilateral LE swelling. Wishes to ambulate more, possibly outside, in order to assess her functional status. - Denied for Chest CTA today given increase in BUN/Cr (2.6, 1.2) Other updates: - INR therapeutic (2.8). Restarted coumadin yesterday - Go for CTA tomorrow. Hydrate with AM labs for BUN/Cr OBJECTIVE: Vital Signs Period Temp Pulse Resp BP Sys/Bee Pulse Ox Last 24 Hr 97.7 F-99.2 F 68-83 18-20 114-139/52-77 95-97 GENERAL: Awake, alert, and fully oriented, in no acute distress. HEAD: Normal with no signs of trauma. EYES: PERRLA. Arcus senilis noted. Extraocular movements intact, sclera anicteric, conjunctiva clear. No lid lag. EARS, NOSE, THROAT: Ears normal, nares patent, oropharynx clear without exudates. Moist mucous membranes. NECK: Supple without lymphadenopathy, JVD, or masses. Possible thyromegaly LUNGS: Lung carranza clear to auscultation BL. No accessory muscle use or wheeze noted. HEART: Regular rate and rhythm, normal S1 and S2 without rub or gallop. Grade 2/ 6 blowing systolic murmur noted at RUSB. ABDOMEN: Soft, nontender, globular, hypoactive bowel sounds, no guarding, no rebound, no masses. No hepatomegaly or splenomegaly. MUSCULOSKELETAL: No CVA tenderness. UPPER EXTREMITIES: Bilateral edematous/ecchymotic in antecubital fossas, likely due to failed IV/blood draw. 2+ radial and ulnar pulses, warm, well-perfused. No cyanosis. No clubbing. Cap refill <2 seconds. No peripheral edema. LOWER EXTREMITIES: 2+ pulses, warm, well-perfused. 1+ BL LE edema. L discrete posterior edema BTK. NEUROLOGICAL: Normal speech. Slow speech. PSYCHIATRIC: Cooperative. Good eye contact. Appropriate mood and affect. Laboratory Results - last 24 hr 12/22/16 12/22/16 12/23/16 16:01 20:43 05:45 INR 2.79 H Sodium Potassium Chloride Carbon Dioxide Anion Gap BUN Creatinine POC Glucometer 167 161 Random Glucose Calcium 12/23/16 11:00 INR Sodium 139 Potassium 4.1 Chloride 107 Carbon Dioxide 25 Anion Gap 7 L BUN 23 H D Creatinine 1.2 H POC Glucometer Random Glucose 127 H Calcium 8.7 Active Medications Generic Name Dose Route Start Last Admin Trade Name Freq PRN Reason Stop Dose Admin Acetaminophen 650 mg 12/19/16 23:29 Tylenol - PO Q6H PRN FEVER OR PAIN Albuterol/Ipratropium 1 amp 12/19/16 23:30 Duoneb - NEB Q6H PRN SHORTNESS OF BREATH Amlodipine Besylate 10 mg 12/20/16 11:45 12/23/16 09:57 Norvasc - PO 10 mg DAILY [facility] Administration Aspirin 81 mg 12/20/16 10:00 12/23/16 09:56 Ecotrin - PO 81 mg DAILY [facility] Administration Atorvastatin Calcium 20 mg 12/20/16 22:00 12/22/16 21:06 Lipitor - PO 20 mg HS [facility] Administration Folic Acid 1 mg 12/20/16 10:00 12/23/16 09:57 Folic Acid - PO 1 mg DAILY [facility] Administration Glimepiride 4 mg 12/24/16 07:00 Amaryl - PO DAILY@0700 [facility] Insulin Aspart 1 vial 12/23/16 11:00 12/23/16 12:16 Novolog Vial Sliding Scale - SQ Not Given TIDAC [facility] Protocol Pantoprazole Sodium 20 mg 12/23/16 10:00 12/23/16 09:57 Protonix - PO 20 mg DAILY [facility] Administration Pregabalin 50 mg 12/20/16 06:00 12/23/16 06:02 Lyrica - PO 50 mg TID [facility] Administration Warfarin Sodium 7.5 mg 12/22/16 18:00 12/22/16 17:24 Coumadin - PO 7.5 mg DAILY@1800 [facility] Administration ASSESSMENT/PLAN: 81 yo woman w/ pmh of HTN, anemia, COPD, CAD, DM2, HLD who presents w/ multiple pre-syncopal episodes over past 3 weeks, in the setting of worsening exercise tolerance and dyspnea on exertion of roughly 1 week duration. Patient doing well with no further presyncopal episodes and continued improvement in LE edema. 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 Will evaluate with CTA chest tomorrow once BUN/Cr normalizes. Syncope COPD P HTN? Suspected CTEPH Diastolic dysfunction HTN HLD Multiple PEs Assessment: Plan: #Presyncope - Cardiology w/u pending - Telemetry - Carotid CTA negative #COPD? - PFTs - Exercise O2 sat challenge - Inhaled Brochodilators (duoneb) - O2 NC PRN #Possible CTEPH - CTA-Chest tomorrow AM after BUN/Cr drops - Continue dual platelet Tx; ASA 81/Coumadin 7.5; INR goal >2 - Coumadin restarted 7.5 mg PO daily. Recheck INR in AM - Consider LE duplex U/S Hadley Singh MD, PGY1 Will discuss with attending in AM, Dr. Calabrese Problem List - Problems (1) Dizziness and giddiness Code(s): R42 - DIZZINESS AND GIDDINESS (2) Exertional dyspnea Code(s): R06.09 - OTHER FORMS OF DYSPNEA (3) Near syncope Code(s): R55 - SYNCOPE AND COLLAPSE Visit type - Emergency Visit Emergency Visit: No - New Patient This patient is new to me today: No - Critical Care Critical Care patient: No
--- NOTE | 2016-12-23 15:10 | PN ---
Teaching Attending Note Name of Resident: Hadley Singh ATTENDING PHYSICIAN STATEMENT I saw and evaluated the patient. I reviewed the resident's note and discussed the case with the resident. I agree with the resident's findings and plan as documented. SUBJECTIVE: Feels a little better today. No CP or SOB. Some hoarseness with speaking. (+) improvement in LE edema. Intake & Output 12/20/16 12/21/16 12/22/16 12/23/16 23:59 23:59 23:59 23:59 Intake Total 853 358 4893 770 Balance 044 628 2459 770 Weight 174 lb 9.6 oz 176 lb 6 oz 177 lb 2 oz 179 lb 4 oz Last Vital Signs Temp Pulse Resp BP Pulse Ox 98.5 F 82 18 112/74 97 12/23/16 14:00 12/23/16 14:00 12/23/16 14:00 12/23/16 14:00 12/23/16 10:30 Active Medications Acetaminophen (Tylenol -) 650 mg PO Q6H PRN PRN Reason: FEVER OR PAIN Albuterol/Ipratropium (Duoneb -) 1 amp NEB Q6H PRN PRN Reason: SHORTNESS OF BREATH Amlodipine Besylate (Norvasc -) 10 mg PO DAILY [facility] Last Admin: 12/23/16 09:57 Dose: 10 mg Aspirin (Ecotrin -) 81 mg PO DAILY [facility] Last Admin: 12/23/16 09:56 Dose: 81 mg Atorvastatin Calcium (Lipitor -) 20 mg PO HS [facility] Last Admin: 12/22/16 21:06 Dose: 20 mg Folic Acid (Folic Acid -) 1 mg PO DAILY [facility] Last Admin: 12/23/16 09:57 Dose: 1 mg Glimepiride (Amaryl -) 4 mg PO DAILY@0700 [facility] Insulin Aspart (Novolog Vial Sliding Scale -) 1 vial SQ TIDAC [facility] PRN Reason: Protocol Last Admin: 12/23/16 12:16 Dose: Not Given Pantoprazole Sodium (Protonix -) 20 mg PO DAILY [facility] Last Admin: 12/23/16 09:57 Dose: 20 mg Pregabalin (Lyrica -) 50 mg PO TID [facility] Last Admin: 12/23/16 13:15 Dose: 50 mg Warfarin Sodium (Coumadin -) 7.5 mg PO DAILY@1800 [facility] Last Admin: 12/22/16 17:24 Dose: 7.5 mg GENERAL: Awake, alert, and fully oriented, NAD HEAD: Normal with no signs of trauma. EYES: Arcus senilis noted. sclera anicteric, conjunctiva clear. EARS, NOSE, THROAT: Moist mucous membranes. NECK: Supple without lymphadenopathy, JVD, or masses. Possible thyromegaly LUNGS: diminished BS at the bases. No accessory muscle use or wheeze noted. HEART: Regular rate and rhythm, normal S1 and S2 without rub or gallop. Grade 2/ 6 blowing systolic murmur noted at RUSB. ABDOMEN: Soft, nontender, (+) BS. No hepatomegaly or splenomegaly. MUSCULOSKELETAL: No CVA tenderness. UPPER EXTREMITIES: Bilateral edematous/ecchymotic in antecubital fossas, No cyanosis. No clubbing. LOWER EXTREMITIES: 2+ pulses, warm, well-perfused. 1+ BL LE edema. L discrete posterior edema BTK. NEUROLOGICAL: non-focal PSYCHIATRIC: Cooperative. Good eye contact. Appropriate mood and affect. Laboratory Results - last 24 hr 12/22/16 12/22/16 12/23/16 16:01 20:43 05:45 INR 2.79 H Sodium Potassium Chloride Carbon Dioxide Anion Gap BUN Creatinine POC Glucometer 167 161 Random Glucose Calcium 12/23/16 11:00 INR Sodium 139 Potassium 4.1 Chloride 107 Carbon Dioxide 25 Anion Gap 7 L BUN 23 H D Creatinine 1.2 H POC Glucometer Random Glucose 127 H Calcium 8.7 ASSESSMENT/PLAN: Problem List - Problems (1) Dizziness and giddiness Code(s): R42 - DIZZINESS AND GIDDINESS (2) Exertional dyspnea Code(s): R06.09 - OTHER FORMS OF DYSPNEA (3) Near syncope Code(s): R55 - SYNCOPE AND COLLAPSE Syncope COPD P HTN? R/O CTEPH Diastolic dysfunction HTN HLD Multiple PE For CTA tomorrow after the labs are checked O2 as needed BD TX AC Dr Caldera
[2016-12-23] MEDS: SODIUM CHLORIDE 1,000 ML IV SCH (15:46)
[2016-12-23] MEDS: WARFARIN NA 7.5 MG TABLET (FP) PO SCH (17:45)
[2016-12-23] MEDS: ATORVASTATIN CA 20 MG TABLET (FP) PO SCH (22:07)
[2016-12-24] MEDS: GLIMEPIRIDE 4 MG TABLET (FP) PO SCH (06:24)
[2016-12-24] MEDS: INSULIN SLIDING SCALE (NOVOLOG) 1 VIAL SQ SCH ×3 (06:24→16:04)
[2016-12-24] MEDS: PREGABALIN 50 MG CAPSULE PO SCH ×3 (06:26→21:16)
[2016-12-24 07:39] LABS: ANION GAP 6 (8-16); CALCIUM 8.4 mg/dL (8.5-10.1); CO2 26 mmol/L (21-32); CREATININE 1.1 mg/dL (0.55-1.02); GLUCOSE,RANDOM 71 mg/dL (74-106)
[2016-12-24 10:24] LABS: CHOLESTEROL 168 mg/dL (50-200); LDL CHOLESTEROL (ONLY SJRH) 104 mg/dL (5-100)
--- NOTE | 2016-12-24 10:30 | PN ---
Teaching Attending Note Name of Resident: Hadley Singh ATTENDING PHYSICIAN STATEMENT I saw and evaluated the patient. I reviewed the resident's note and discussed the case with the resident. I agree with the resident's findings and plan as documented. PULMONARY ALERT,NO DISTRESS,STILL C/O DAVIES,-CP IMP NEAR SYNCOPE DYSPNEA ASHD ? DIASTOLIC DYSFUNCTION HTN HLD H/O PE X 2 H/O DVT ? COPD PLAN O2 PRN INHALED BRONCHODILATORS PRN PFTS OUTPATIENT WILL DEFER CHEST CTA IN VIEW OF ELEVATED CREATININE O2 SAT AT REST ON POST EXERCISE ON RA COUMADIN PER INR V/Q SCAN OUTPATIENT DR FERRELL Problem List - Problems (1) Dizziness and giddiness Code(s): R42 - DIZZINESS AND GIDDINESS (2) Exertional dyspnea Code(s): R06.09 - OTHER FORMS OF DYSPNEA (3) Near syncope Code(s): R55 - SYNCOPE AND COLLAPSE (4) Weakness Code(s): R53.1 - WEAKNESS (5) CAD (coronary artery disease) Code(s): I25.10 - ATHSCL HEART DISEASE OF [place] CORONARY ARTERY W/O ANG PCTRS (6) Diabetes mellitus Code(s): E11.9 - TYPE 2 DIABETES MELLITUS WITHOUT COMPLICATIONS Qualifiers: Diabetes mellitus type: type 2 (7) HLD (hyperlipidemia) Code(s): E78.5 - HYPERLIPIDEMIA, UNSPECIFIED (8) HTN (hypertension) Code(s): I10 - ESSENTIAL (PRIMARY) HYPERTENSION Qualifiers: (9) Thyroid nodule Code(s): E04.1 - NONTOXIC SINGLE THYROID NODULE (10) Type 2 diabetes mellitus with diabetic neuropathy, unspecified Code(s): E11.40 - TYPE 2 DIABETES MELLITUS WITH DIABETIC NEUROPATHY, UNSP (11) Pulmonary embolism Code(s): I26.99 - OTHER PULMONARY EMBOLISM WITHOUT ACUTE COR PULMONALE Problem List - Problems (1) Dizziness and giddiness Code(s): R42 - DIZZINESS AND GIDDINESS (2) Exertional dyspnea Code(s): R06.09 - OTHER FORMS OF DYSPNEA (3) Near syncope Code(s): R55 - SYNCOPE AND COLLAPSE (4) Weakness Code(s): R53.1 - WEAKNESS (5) CAD (coronary artery disease) Code(s): I25.10 - ATHSCL HEART DISEASE OF [place] CORONARY ARTERY W/O ANG PCTRS (6) Diabetes mellitus Code(s): E11.9 - TYPE 2 DIABETES MELLITUS WITHOUT COMPLICATIONS Qualifiers: Diabetes mellitus type: type 2 (7) HLD (hyperlipidemia) Code(s): E78.5 - HYPERLIPIDEMIA, UNSPECIFIED (8) HTN (hypertension) Code(s): I10 - ESSENTIAL (PRIMARY) HYPERTENSION Qualifiers: (9) Thyroid nodule Code(s): E04.1 - NONTOXIC SINGLE THYROID NODULE (10) Type 2 diabetes mellitus with diabetic neuropathy, unspecified Code(s): E11.40 - TYPE 2 DIABETES MELLITUS WITH DIABETIC NEUROPATHY, UNSP (11) Pulmonary embolism Code(s): I26.99 - OTHER PULMONARY EMBOLISM WITHOUT ACUTE COR PULMONALE Problem List - Problems (1) Dizziness and giddiness Code(s): R42 - DIZZINESS AND GIDDINESS (2) Exertional dyspnea Code(s): R06.09 - OTHER FORMS OF DYSPNEA (3) Near syncope Code(s): R55 - SYNCOPE AND COLLAPSE (4) Weakness Code(s): R53.1 - WEAKNESS (5) CAD (coronary artery disease) Code(s): I25.10 - ATHSCL HEART DISEASE OF [place] CORONARY ARTERY W/O ANG PCTRS (6) Diabetes mellitus Code(s): E11.9 - TYPE 2 DIABETES MELLITUS WITHOUT COMPLICATIONS Qualifiers: Diabetes mellitus type: type 2 (7) HLD (hyperlipidemia) Code(s): E78.5 - HYPERLIPIDEMIA, UNSPECIFIED (8) HTN (hypertension) Code(s): I10 - ESSENTIAL (PRIMARY) HYPERTENSION Qualifiers: (9) Thyroid nodule Code(s): E04.1 - NONTOXIC SINGLE THYROID NODULE (10) Type 2 diabetes mellitus with diabetic neuropathy, unspecified Code(s): E11.40 - TYPE 2 DIABETES MELLITUS WITH DIABETIC NEUROPATHY, UNSP (11) Pulmonary embolism Code(s): I26.99 - OTHER PULMONARY EMBOLISM WITHOUT ACUTE COR PULMONALE
[2016-12-24] MEDS: amLODIPine BESYLATE 10 MG TABLET (FP) PO SCH (10:37)
[2016-12-24] MEDS: ASPIRIN COATED 81 MG TABLET.EC PO SCH (10:37)
[2016-12-24] MEDS: PANTOPRAZOLE 20 MG TABLET (FP) PO SCH (10:37)
[2016-12-24] MEDS: FOLIC ACID 1 MG TABLET (FP) PO SCH (10:37)
--- NOTE | 2016-12-24 11:51 | DS ---
Physical Examination Vital Signs: Vital Signs Temperature 98 F 12/24/16 09:44 Pulse Rate 86 12/24/16 09:44 Respiratory Rate 18 12/24/16 09:44 Blood Pressure 121/74 12/24/16 09:44 O2 Sat by Pulse Oximetry (%) 95 12/23/16 23:29 Constitutional: Yes: Calm, Thin Neck: Yes: Trachea Midline Cardiovascular: Yes: Regular Rate and Rhythm, S1, S2 Respiratory: Yes: CTA Bilaterally Gastrointestinal: Yes: Normal Bowel Sounds, Soft Neurological: Yes: Alert, Oriented Labs: CBC, BMP 12/24/16 05:35 Discharge Summary Reason For Visit: WEAKNESS Current Active Problems Dizziness and giddiness (Acute) Exertional dyspnea (Acute) Near syncope (Acute) Pulmonary embolism (Acute) Hospital Course: - Primary Care Physician PCP: Maldonado Whaley - Admission Chief Complaint: weakness and sensation of passing out History of Present Illness: History of Present Illness: Patient is a 81 y.o. female with a PMH of Anemia, Type 2 DM, CAD, HTN, and HLD who presents to our facility today c/o a 3 week h/o of weakness with exertion. per patient about 3 weeks ago she notice when she got up from sitting position and started to walk she felt as if she was going to pass out she felt dizzy and she held on to kitchen counter and then sat down and after 5 min felt better,then again last week she was getting up to use restroom when she felt as if she was going to pass out and her heart was beating very fast she held on to her daughter and then sat down and felt better then again the day before admission and day of admission she felt again light headed and weak as if she was going to pass out and then her daughter made her sit down she states theses episode only occur from sitting to standing posittion, when she sitting or lying down she is ok History Source: Patient, Medical Record - Past Medical History Cardiovascular: Yes: Pulmonary Hypertension, CAD (reported CAD), HTN, Hyperlipdemia, Aortic Insufficiency Pulmonary: Yes: Pulmonary Embolus (following ~50 years ago, and again in 2013 while hospitalzied for shingles per patient's report) Gastrointestinal: Yes: GERD Endocrine: Yes: Diabetes Mellitus, Other (mutlinodular goitre) - Past Surgical History Past Surgical History: Yes: (x5), Hysterectomy (JANINE ~ 40 years ago) - Smoking History Smoking history: Never smoked Have you smoked in the past 12 months: No Aproximately how many cigarettes per day: 0 patient got extensive wrok up of dopler of legs negative MRi was done as well negatvie CTA of neck shows some abnormality of hypophayrnx and getting Ent consullt to see patient getting iv hydration after cta ryan today nad stop couamdin and start eliquis from tmw echo is normal no change hotler was ok as well Condition: Good - Instructions Diet, Activity, Other Instructions: Follow up with PCP and neurology within 2 weeks. start eliquis 5mg po bid stop couamdin Referrals: Maldonado Whaley MD [Primary Care Provider] - Disposition: HOME - Home Medications Comprehensive Discharge Medication List: Ambulatory Orders Aspirin [ASA -] 81 mg PO DAILY #0 tab.chew 12/14/11 Folic Acid - 1 mg PO DAILY 07/06/13 Atorvastatin Ca [Lipitor] 10 mg PO HS 07/27/14 Pregabalin [Lyrica -] 50 mg PO TID #90 capsule MDD 3 10/17/15 Amlodipine Besylate [Norvasc -] 10 mg PO DAILY #30 tablet 02/23/16 Glimepiride [Amaryl] 4 mg PO DAILY 08/14/16 Warfarin Na [Coumadin -] 5 mg PO DAILY@1800 08/14/16 Pantoprazole Sodium [Protonix -] 40 mg PO DAILY #30 08/19/16
--- NOTE | 2016-12-24 11:54 | PN ---
Progress Note (short form) - Note Progress Note: stop couadin start eliquis from tuesday cta chest cancelled continue iv fluids today ENT consult today to review cta neck with outpatient FU dc home in AM Problem List - Problems (1) Near syncope Code(s): R55 - SYNCOPE AND COLLAPSE (2) Diabetes mellitus Code(s): E11.9 - TYPE 2 DIABETES MELLITUS WITHOUT COMPLICATIONS Qualifiers: Diabetes mellitus type: type 2 (3) HLD (hyperlipidemia) Code(s): E78.5 - HYPERLIPIDEMIA, UNSPECIFIED (4) HTN (hypertension) Code(s): I10 - ESSENTIAL (PRIMARY) HYPERTENSION Qualifiers: (5) CAD (coronary artery disease) Code(s): I25.10 - ATHSCL HEART DISEASE OF [place] CORONARY ARTERY W/O ANG PCTRS
[2016-12-24] MEDS: SODIUM CHLORIDE 1,000 ML IV SCH (16:14)
--- NOTE | 2016-12-24 18:55 | CON.ENT ---
Consult Consult Specialty:: ENT Referred by:: Dr. Rodriguez Reason for Consultation:: abnormal CTA of neck - History of Present Illness Chief Complaint: abnormal CTA of neck History of Present Illness: 81 yo F admitted with syncope CTA of neck performed report describes some effacement of vallecula and ENT consultation recommended pt denies specific throat problem occasional problem with pills getting stuck, no choking or gagging, food and beverages OK, no weight loss occasional reflux symptoms jolie if eats late had prior medication for stomach occasional hoarseness if uses voice too much; returns to normal after voice rest never smoker no allergies or specific nasal symptoms or nasal history known thyroid problem, pt states being followed by Dr. Whaley - History Source History Provided By: Patient, Family Member, Medical Record Limitations to Obtaining History: No Limitations - Past Medical History Cardio/Vascular: Yes: Pulmonary Hypertension, CAD (reported CAD), HTN, Hyperlipdemia, Aortic Insufficiency Pulmonary: Yes: Pulmonary Embolus (following ~50 years ago, and again in 2013 while hospitalzied for shingles per patient's report) Gastrointestinal: Yes: GERD Endocrine: Yes: Diabetes Mellitus, Other (mutlinodular goitre) - Past Surgical History Past Surgical History: Yes: (x5), Hysterectomy (JANINE ~ 40 years ago) - Alcohol/Substance Use Hx Alcohol Use: No History of Substance Use: reports: None - Smoking History Smoking history: Never smoked Have you smoked in the past 12 months: No Aproximately how many cigarettes per day: 0 Home Medications - Allergies Allergies/Adverse Reactions: Allergies Allergy/AdvReac Type Severity Reaction Status Date / Time lactose AdvReac Severe Verified 12/19/16 12:30 - Home Medications Home Medications: Ambulatory Orders Aspirin [ASA -] 81 mg PO DAILY #0 tab.chew 12/14/11 Folic Acid - 1 mg PO DAILY 07/06/13 Atorvastatin Ca [Lipitor] 10 mg PO HS 07/27/14 Pregabalin [Lyrica -] 50 mg PO TID #90 capsule MDD 3 10/17/15 Amlodipine Besylate [Norvasc -] 10 mg PO DAILY #30 tablet 02/23/16 Glimepiride [Amaryl] 4 mg PO DAILY 08/14/16 Pantoprazole Sodium [Protonix -] 40 mg PO DAILY #30 08/19/16 Apixaban [Eliquis] 5 mg PO BID #30 tablet MDD 2 12/24/16 Family Disease History - Family Disease History Family Disease History: Diabetes: Sister, Heart Disease: Brother, CA: Father ( colon cancer), Sister Physical Exam-ENT Vital Signs: Vital Signs Temperature 97.2 F L 12/24/16 17:00 Pulse Rate 76 12/24/16 17:00 Respiratory Rate 20 12/24/16 17:00 Blood Pressure 142/80 12/24/16 17:00 O2 Sat by Pulse Oximetry (%) 95 12/24/16 09:00 Constitutional: Yes: No Distress, Calm Head: Yes: WNL Face: Yes: WNL Eyes: Yes: WNL Nose: Yes: Other (mild turbinate edema, no bleeding, pus or polyp) Oral/Pharynx: Yes: Other (oral cavity clear, tonsils absent, soft palate elongated. Flexible laryngoscopy:nasopharynx normal, base of tongue mild lingual tonsil tissue seen, vallecula is normal upon direct visualization, endolarynx normal, no lesions TVC mobile symmetric, mild postglottic and arytenoid mucosal edema (c/w laryngopharyngeal reflux) voice clear and strong, no stridor or respiratory distress . pyriform sinuses, epiglottis and AE folds normal) Outer Ear: Yes: WNL Ear Canal: Yes: WNL Neck: Yes: Thyromegaly (large left thyroid nodule) Imaging - Results Cat Scan: Report Reviewed, Image Reviewed (CT angiogram of neck ++large left thyroid nodule ?asymmetry of vallecula) Problem List - Problems (1) Thyroid nodule Assessment/Plan: large left thyroid nodule followed by figurine maker may be contributory to her dysphagia Recommend follow-up with Endocrinology Code(s): E04.1 - NONTOXIC SINGLE THYROID NODULE (2) Hoarseness Assessment/Plan: intermittent, related to voice use returns to normal after resting voice laryngopharyngeal reflux may be contributory no laryngeal lesion, laryngeal mobility normal Recommend reflux precautions medications prn moderate voice use Code(s): R49.0 - DYSPHONIA (3) Reflux laryngitis Assessment/Plan: physical findings of LPR on exam symptoms of reflux with eating late Recommend: reviewed reflux precautions including diet, fluids and elevating head of bed, not eating late. GI evaluation if persists Code(s): J04.0 - ACUTE LARYNGITIS K21.9 - GASTRO-ESOPHAGEAL REFLUX DISEASE WITHOUT ESOPHAGITIS (4) Abnormal CT scan Assessment/Plan: CT angiogram of neck showed effacement of vallecula normal on exam with direct visualization via flexible laryngoscopy may have been related to some lingual tonsil tissue no discrete lesion visualized Recommend: observe Thank you for consultation Manolo Byrd MD FACS Code(s): R93.8 - ABNORMAL FINDINGS ON DIAGNOSTIC IMAGING OF BODY STRUCTURES
--- NOTE | 2016-12-24 19:14 | PN ---
Physical Exam: SUBJECTIVE: Patient seen and examined by me in AM - No major events overnight. No complaints. Still complaining of hoarseness when talking. - Denies any SOB or exertional dyspnea. Denies fever, cough, N/V, dysuria, presyncope. BL LE edema slightly improved. - Coumadin d/c'ed. [facility] - CTA Chest cancelled due to elevated Cr. Will require outpatient w/u for suspected pulm HTN/CTEPH - Thrombocytopenia noted on CBC (71k). OBJECTIVE: Vital Signs Period Temp Pulse Resp BP Sys/Bee Pulse Ox Last 24 Hr 97.2 F-98.6 F 70-86 18-20 105-142/58-80 95-95 GENERAL: Awake, alert, and fully oriented, in no acute distress. HEAD: Normal with no signs of trauma. EYES: Arcus senilis noted. sclera anicteric, conjunctiva clear. No lid lag. EARS, NOSE, THROAT: Ears normal, nares patent, oropharynx clear without exudates. Moist mucous membranes. LUNGS: Lung carranza clear to auscultation BL. No accessory muscle use or wheeze noted. HEART: Regular rate and rhythm, normal S1 and S2 without rub or gallop. Grade 2/ 6 blowing systolic murmur noted at RUSB. ABDOMEN: Soft, nontender, globular, hypoactive bowel sounds, no guarding, no rebound, no masses. No hepatomegaly or splenomegaly. MUSCULOSKELETAL: No CVA tenderness. UPPER EXTREMITIES: Bilateral edematous/ecchymotic in antecubital fossas, warm, well-perfused. No cyanosis. No clubbing. Cap refill <2 seconds. No peripheral edema. LOWER EXTREMITIES: 2+ pulses, warm, well-perfused. 1+ BL LE edema. NEUROLOGICAL: Normal speech. Slow speech. PSYCHIATRIC: Cooperative. Good eye contact. Appropriate mood and affect. Laboratory Results - last 24 hr 12/24/16 12/24/16 12/24/16 05:35 05:35 05:53 Sodium 143 Potassium 4.0 Chloride 111 H Carbon Dioxide 26 Anion Gap 6 L BUN 24 H Creatinine 1.1 H POC Glucometer 79 Random Glucose 71 L D Calcium 8.4 L Triglycerides 48 D Cholesterol 168 D Total LDL Cholesterol 104 H HDL Cholesterol 55 12/24/16 12/24/16 12:01 15:52 Sodium Potassium Chloride Carbon Dioxide Anion Gap BUN Creatinine POC Glucometer 217 89 Random Glucose Calcium Triglycerides Cholesterol Total LDL Cholesterol HDL Cholesterol Active Medications Generic Name Dose Route Start Last Admin Trade Name Freq PRN Reason Stop Dose Admin Acetaminophen 650 mg 12/19/16 23:29 Tylenol - PO Q6H PRN FEVER OR PAIN Albuterol/Ipratropium 1 amp 12/19/16 23:30 Duoneb - NEB Q6H PRN SHORTNESS OF BREATH Amlodipine Besylate 10 mg 12/20/16 11:45 12/24/16 10:37 Norvasc - PO 10 mg DAILY ADRI Administration Apixaban 5 mg 12/25/16 10:00 Eliquis - PO BID ADRI Aspirin 81 mg 12/20/16 10:00 12/24/16 10:37 Ecotrin - PO 81 mg DAILY ADRI Administration Atorvastatin Calcium 20 mg 12/20/16 22:00 12/23/16 22:07 Lipitor - PO 20 mg HS ADRI Administration Folic Acid 1 mg 12/20/16 10:00 12/24/16 10:37 Folic Acid - PO 1 mg DAILY ADRI Administration Glimepiride 4 mg 12/24/16 07:00 12/24/16 06:24 Amaryl - PO Not Given DAILY@0700 [facility] Sodium Chloride 1,000 mls @ 50 mls/hr 12/23/16 15:30 12/24/16 16:14 Normal Saline - IV 50 mls/hr ASDIR ADRI Administration Insulin Aspart 1 vial 12/23/16 11:00 12/24/16 16:04 Novolog Vial Sliding Scale - SQ Not Given TIDAC [facility] Protocol Pantoprazole Sodium 20 mg 12/23/16 10:00 12/24/16 10:37 Protonix - PO 20 mg DAILY ADRI Administration Pregabalin 50 mg 12/20/16 06:00 12/24/16 14:45 Lyrica - PO 50 mg TID ADRI Administration ASSESSMENT/PLAN: 81 yo woman w/ pmh of HTN, anemia, COPD, CAD, DM2, HLD who presents w/ multiple pre-syncopal episodes over past 3 weeks, in the setting of worsening exercise tolerance and dyspnea on exertion of roughly 1 week duration. Patient continues to do well with no further episodes of presyncope, exertional dyspnea or SOB. Plan to transition to [facility] for AC. 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 Syncope COPD P HTN? Suspected CTEPH Diastolic dysfunction HTN HLD Multiple PEs Assessment: Plan: #Presyncope - Cardiology following - Telemetry - Carotid CTA negative #COPD? - PFTs out-pt - Exercise O2 sat challenge - V/q scan as out-pt - Inhaled Brochodilators (duoneb) - O2 NC PRN #Possible CTEPH - CTA-Chest cancelled. f/u in out-patient setting - Coumadin d/c'ed. Eliquis started on Sat. - Consider LE duplex U/S Hadley Singh MD, PGY1 Will discuss plan with attending, Dr. Calabrese Problem List - Problems (1) Dizziness and giddiness Code(s): R42 - DIZZINESS AND GIDDINESS (2) Exertional dyspnea Code(s): R06.09 - OTHER FORMS OF DYSPNEA (3) Near syncope Code(s): R55 - SYNCOPE AND COLLAPSE Visit type - Emergency Visit Emergency Visit: No - New Patient This patient is new to me today: No - Critical Care Critical Care patient: No
[2016-12-24] MEDS: ATORVASTATIN CA 20 MG TABLET (FP) PO SCH (21:16)
[2016-12-25] MEDS: INSULIN SLIDING SCALE (NOVOLOG) 1 VIAL SQ SCH ×2 (06:22→10:25)
[2016-12-25] MEDS: GLIMEPIRIDE 4 MG TABLET (FP) PO SCH (06:22)
[2016-12-25] MEDS: PREGABALIN 50 MG CAPSULE PO SCH ×2 (06:22→13:47)
--- NOTE | 2016-12-25 09:01 | PN ---
Progress Note, Physician History of Present Illness: PULMONARY ALERT,NO DISTRESS,+DAVIES - Current Medication List Current Medications: Active Medications Acetaminophen (Tylenol -) 650 mg PO Q6H PRN PRN Reason: FEVER OR PAIN Amlodipine Besylate (Norvasc -) 10 mg PO DAILY [facility] Last Admin: 12/24/16 10:37 Dose: 10 mg Apixaban (Eliquis -) 5 mg PO BID [facility] Aspirin (Ecotrin -) 81 mg PO DAILY [facility] Last Admin: 12/24/16 10:37 Dose: 81 mg Atorvastatin Calcium (Lipitor -) 20 mg PO HS [facility] Last Admin: 12/24/16 21:16 Dose: 20 mg Folic Acid (Folic Acid -) 1 mg PO DAILY [facility] Last Admin: 12/24/16 10:37 Dose: 1 mg Glimepiride (Amaryl -) 4 mg PO DAILY@0700 [facility] Last Admin: 12/25/16 06:22 Dose: 4 mg Sodium Chloride (Normal Saline -) 1,000 mls @ 50 mls/hr IV ASDIR [facility] Last Admin: 12/24/16 16:14 Dose: 50 mls/hr Insulin Aspart (Novolog Vial Sliding Scale -) 1 vial SQ TIDAC [facility] PRN Reason: Protocol Last Admin: 12/25/16 06:22 Dose: Not Given Pantoprazole Sodium (Protonix -) 20 mg PO DAILY [facility] Last Admin: 12/24/16 10:37 Dose: 20 mg Pregabalin (Lyrica -) 50 mg PO TID [facility] Last Admin: 12/25/16 06:22 Dose: 50 mg - Objective Vital Signs: Vital Signs Temperature 98.2 F 12/25/16 05:00 Pulse Rate 80 12/25/16 05:00 Respiratory Rate 18 12/25/16 01:00 Blood Pressure 115/74 12/25/16 05:00 O2 Sat by Pulse Oximetry (%) 96 12/24/16 20:30 Constitutional: Yes: Well Nourished, Calm Eyes: Yes: WNL HENT: Yes: WNL Neck: Yes: WNL Cardiovascular: Yes: Regular Rate and Rhythm, S1, S2 Respiratory: Yes: CTA Bilaterally Gastrointestinal: Yes: Normal Bowel Sounds, Soft Extremities: Yes: WNL Edema: No Labs: CBC, BMP 12/24/16 05:35 INR, PTT INR 2.79 (0.82-1.09) H 12/23/16 05:45 Problem List - Problems (1) Dizziness and giddiness Code(s): R42 - DIZZINESS AND GIDDINESS (2) Exertional dyspnea Code(s): R06.09 - OTHER FORMS OF DYSPNEA (3) Near syncope Code(s): R55 - SYNCOPE AND COLLAPSE (4) Weakness Code(s): R53.1 - WEAKNESS (5) CAD (coronary artery disease) Code(s): I25.10 - ATHSCL HEART DISEASE OF [place] CORONARY ARTERY W/O ANG PCTRS (6) Diabetes mellitus Code(s): E11.9 - TYPE 2 DIABETES MELLITUS WITHOUT COMPLICATIONS Qualifiers: Diabetes mellitus type: type 2 (7) HLD (hyperlipidemia) Code(s): E78.5 - HYPERLIPIDEMIA, UNSPECIFIED (8) HTN (hypertension) Code(s): I10 - ESSENTIAL (PRIMARY) HYPERTENSION Qualifiers: (9) Thyroid nodule Code(s): E04.1 - NONTOXIC SINGLE THYROID NODULE (10) Type 2 diabetes mellitus with diabetic neuropathy, unspecified Code(s): E11.40 - TYPE 2 DIABETES MELLITUS WITH DIABETIC NEUROPATHY, UNSP (11) Pulmonary embolism Code(s): I26.99 - OTHER PULMONARY EMBOLISM WITHOUT ACUTE COR PULMONALE Assessment/Plan PULMONARY ALERT,NO DISTRESS,STILL C/O DAVIES,-CP IMP NEAR SYNCOPE DYSPNEA ASHD ? DIASTOLIC DYSFUNCTION HTN HLD H/O PE X 2 H/O DVT ? COPD PLAN O2 PRN INHALED BRONCHODILATORS PRN PFTS OUTPATIENT WILL DEFER CHEST CTA IN VIEW OF ELEVATED CREATININE O2 SAT AT REST ON POST EXERCISE ON RA [facility] V/Q SCAN OUTPATIENT DR FERRELL Problem List - Problems (1) Dizziness and giddiness Code(s): R42 - DIZZINESS AND GIDDINESS (2) Exertional dyspnea Code(s): R06.09 - OTHER FORMS OF DYSPNEA (3) Near syncope Code(s): R55 - SYNCOPE AND COLLAPSE (4) Weakness Code(s): R53.1 - WEAKNESS (5) CAD (coronary artery disease) Code(s): I25.10 - ATHSCL HEART DISEASE OF [place] CORONARY [place] W/O ANG PCTRS (6) Diabetes mellitus Code(s): E11.9 - TYPE 2 DIABETES MELLITUS WITHOUT COMPLICATIONS Qualifiers: Diabetes mellitus type: type 2 (7) HLD (hyperlipidemia) Code(s): E78.5 - HYPERLIPIDEMIA, UNSPECIFIED (8) HTN (hypertension) Code(s): I10 - ESSENTIAL (PRIMARY) HYPERTENSION Qualifiers: (9) Thyroid nodule Code(s): E04.1 - NONTOXIC SINGLE THYROID NODULE (10) Type 2 diabetes mellitus with diabetic neuropathy, unspecified Code(s): E11.40 - TYPE 2 DIABETES MELLITUS WITH DIABETIC NEUROPATHY, UNSP (11) Pulmonary embolism Code(s): I26.99 - OTHER PULMONARY EMBOLISM WITHOUT ACUTE COR PULMONALE Problem List - Problems (1) Dizziness and giddiness Code(s): R42 - DIZZINESS AND GIDDINESS (2) Exertional dyspnea Code(s): R06.09 - OTHER FORMS OF DYSPNEA (3) Near syncope Code(s): R55 - SYNCOPE AND COLLAPSE (4) Weakness Code(s): R53.1 - WEAKNESS (5) CAD (coronary artery disease) Code(s): I25.10 - ATHSCL HEART DISEASE OF [place] CORONARY [place] W/O ANG PCTRS (6) Diabetes mellitus Code(s): E11.9 - TYPE 2 DIABETES MELLITUS WITHOUT COMPLICATIONS Qualifiers: Diabetes mellitus type: type 2 (7) HLD (hyperlipidemia) Code(s): E78.5 - HYPERLIPIDEMIA, UNSPECIFIED (8) HTN (hypertension) Code(s): I10 - ESSENTIAL (PRIMARY) HYPERTENSION Qualifiers: (9) Thyroid nodule Code(s): E04.1 - NONTOXIC SINGLE THYROID NODULE (10) Type 2 diabetes mellitus with diabetic neuropathy, unspecified Code(s): E11.40 - TYPE 2 DIABETES MELLITUS WITH DIABETIC NEUROPATHY, UNSP (11) Pulmonary embolism Code(s): I26.99 - OTHER PULMONARY EMBOLISM WITHOUT ACUTE COR PULMONALE Problem List - Problems (1) Dizziness and giddiness Code(s): R42 - DIZZINESS AND GIDDINESS (2) Exertional dyspnea Code(s): R06.09 - OTHER FORMS OF DYSPNEA (3) Near syncope Code(s): R55 - SYNCOPE AND COLLAPSE (4) Weakness Code(s): R53.1 - WEAKNESS (5) CAD (coronary artery disease) Code(s): I25.10 - ATHSCL HEART DISEASE OF [place] CORONARY [place] W/O ANG PCTRS (6) Diabetes mellitus Code(s): E11.9 - TYPE 2 DIABETES MELLITUS WITHOUT COMPLICATIONS Qualifiers: Diabetes mellitus type: type 2 (7) HLD (hyperlipidemia) Code(s): E78.5 - HYPERLIPIDEMIA, UNSPECIFIED (8) HTN (hypertension) Code(s): I10 - ESSENTIAL (PRIMARY) HYPERTENSION Qualifiers: (9) Thyroid nodule Code(s): E04.1 - NONTOXIC SINGLE THYROID NODULE (10) Type 2 diabetes mellitus with diabetic neuropathy, unspecified Code(s): E11.40 - TYPE 2 DIABETES MELLITUS WITH DIABETIC NEUROPATHY, UNSP (11) Pulmonary embolism Code(s): I26.99 - OTHER PULMONARY EMBOLISM WITHOUT ACUTE COR PULMONALE
--- NOTE | 2016-12-25 09:05 | PN ---
Progress Note, Physician History of Present Illness: PULMONARY ALERT,NO DISTRESS,+DAVIES,,-CP - Current Medication List Current Medications: Active Medications Acetaminophen (Tylenol -) 650 mg PO Q6H PRN PRN Reason: FEVER OR PAIN Amlodipine Besylate (Norvasc -) 10 mg PO DAILY [facility] Last Admin: 12/24/16 10:37 Dose: 10 mg Apixaban (Eliquis -) 5 mg PO BID [facility] Aspirin (Ecotrin -) 81 mg PO DAILY [facility] Last Admin: 12/24/16 10:37 Dose: 81 mg Atorvastatin Calcium (Lipitor -) 20 mg PO HS [facility] Last Admin: 12/24/16 21:16 Dose: 20 mg Folic Acid (Folic Acid -) 1 mg PO DAILY [facility] Last Admin: 12/24/16 10:37 Dose: 1 mg Glimepiride (Amaryl -) 4 mg PO DAILY@0700 [facility] Last Admin: 12/25/16 06:22 Dose: 4 mg Sodium Chloride (Normal Saline -) 1,000 mls @ 50 mls/hr IV ASDIR [facility] Last Admin: 12/24/16 16:14 Dose: 50 mls/hr Insulin Aspart (Novolog Vial Sliding Scale -) 1 vial SQ TIDAC [facility] PRN Reason: Protocol Last Admin: 12/25/16 06:22 Dose: Not Given Pantoprazole Sodium (Protonix -) 20 mg PO DAILY [facility] Last Admin: 12/24/16 10:37 Dose: 20 mg Pregabalin (Lyrica -) 50 mg PO TID [facility] Last Admin: 12/25/16 06:22 Dose: 50 mg - Objective Vital Signs: Vital Signs Temperature 98.2 F 12/25/16 05:00 Pulse Rate 80 12/25/16 05:00 Respiratory Rate 18 12/25/16 01:00 Blood Pressure 115/74 12/25/16 05:00 O2 Sat by Pulse Oximetry (%) 96 12/24/16 20:30 Constitutional: Yes: Well Nourished, Calm Eyes: Yes: WNL HENT: Yes: WNL Neck: Yes: WNL Cardiovascular: Yes: Regular Rate and Rhythm, S1, S2 Respiratory: Yes: CTA Bilaterally Gastrointestinal: Yes: Normal Bowel Sounds, Soft Extremities: Yes: WNL Edema: No Labs: Problem List - Problems (1) Dizziness and giddiness Code(s): R42 - DIZZINESS AND GIDDINESS (2) Exertional dyspnea Code(s): R06.09 - OTHER FORMS OF DYSPNEA (3) Near syncope Code(s): R55 - SYNCOPE AND COLLAPSE (4) Weakness Code(s): R53.1 - WEAKNESS (5) CAD (coronary artery disease) Code(s): I25.10 - ATHSCL HEART DISEASE OF [place] CORONARY [place] W/O ANG PCTRS (6) Diabetes mellitus Code(s): E11.9 - TYPE 2 DIABETES MELLITUS WITHOUT COMPLICATIONS Qualifiers: Diabetes mellitus type: type 2 (7) HLD (hyperlipidemia) Code(s): E78.5 - HYPERLIPIDEMIA, UNSPECIFIED (8) HTN (hypertension) Code(s): I10 - ESSENTIAL (PRIMARY) HYPERTENSION Qualifiers: (9) Thyroid nodule Code(s): E04.1 - NONTOXIC SINGLE THYROID NODULE (10) Type 2 diabetes mellitus with diabetic neuropathy, unspecified Code(s): E11.40 - TYPE 2 DIABETES MELLITUS WITH DIABETIC NEUROPATHY, UNSP (11) Pulmonary embolism Code(s): I26.99 - OTHER PULMONARY EMBOLISM WITHOUT ACUTE COR PULMONALE Assessment/Plan PULMONARY ALERT,NO DISTRESS,STILL C/O DAVIES,-CP IMP NEAR SYNCOPE DYSPNEA ASHD ? DIASTOLIC DYSFUNCTION HTN HLD H/O PE X 2 H/O DVT ? COPD PLAN O2 PRN INHALED BRONCHODILATORS PRN PFTS OUTPATIENT WILL DEFER CHEST CTA IN VIEW OF ELEVATED CREATININE O2 SAT AT REST ON POST EXERCISE ON RA [facility] V/Q SCAN OUTPATIENT DR FERRELL Problem List - Problems (1) Dizziness and giddiness Code(s): R42 - DIZZINESS AND GIDDINESS (2) Exertional dyspnea Code(s): R06.09 - OTHER FORMS OF DYSPNEA (3) Near syncope Code(s): R55 - SYNCOPE AND COLLAPSE (4) Weakness Code(s): R53.1 - WEAKNESS (5) CAD (coronary artery disease) Code(s): I25.10 - ATHSCL HEART DISEASE OF [place] CORONARY [place] W/O ANG PCTRS (6) Diabetes mellitus Code(s): E11.9 - TYPE 2 DIABETES MELLITUS WITHOUT COMPLICATIONS Qualifiers: Diabetes mellitus type: type 2 (7) HLD (hyperlipidemia) Code(s): E78.5 - HYPERLIPIDEMIA, UNSPECIFIED (8) HTN (hypertension) Code(s): I10 - ESSENTIAL (PRIMARY) HYPERTENSION Qualifiers: (9) Thyroid nodule Code(s): E04.1 - NONTOXIC SINGLE THYROID NODULE (10) Type 2 diabetes mellitus with diabetic neuropathy, unspecified Code(s): E11.40 - TYPE 2 DIABETES MELLITUS WITH DIABETIC NEUROPATHY, UNSP (11) Pulmonary embolism Code(s): I26.99 - OTHER PULMONARY EMBOLISM WITHOUT ACUTE COR PULMONALE (5) CAD (coronary artery disease) Code(s): I25.10 - ATHSCL HEART DISEASE OF [place] CORONARY [place] W/O ANG PCTRS (6) Diabetes mellitus Code(s): E11.9 - TYPE 2 DIABETES MELLITUS WITHOUT COMPLICATIONS Qualifiers: Diabetes mellitus type: type 2 (7) HLD (hyperlipidemia) Code(s): E78.5 - HYPERLIPIDEMIA, UNSPECIFIED (8) HTN (hypertension) Code(s): I10 - ESSENTIAL (PRIMARY) HYPERTENSION Qualifiers: (9) Thyroid nodule Code(s): E04.1 - NONTOXIC SINGLE THYROID NODULE (10) Type 2 diabetes mellitus with diabetic neuropathy, unspecified Code(s): E11.40 - TYPE 2 DIABETES MELLITUS WITH DIABETIC NEUROPATHY, UNSP (11) Pulmonary embolism Code(s): I26.99 - OTHER PULMONARY EMBOLISM WITHOUT ACUTE COR PULMONALE
[2016-12-25] MEDS: amLODIPine BESYLATE 10 MG TABLET (FP) PO SCH (09:10)
[2016-12-25] MEDS: PANTOPRAZOLE 20 MG TABLET (FP) PO SCH (09:10)
[2016-12-25] MEDS: FOLIC ACID 1 MG TABLET (FP) PO SCH (09:10)
[2016-12-25] MEDS: ASPIRIN COATED 81 MG TABLET.EC PO SCH (09:10)
--- NOTE | 2016-12-25 09:12 | PN ---
Progress Note, Physician History of Present Illness: PULMONARY ALERT,NAD,-CP,+DAVIES - Current Medication List Current Medications: Active Medications Acetaminophen (Tylenol -) 650 mg PO Q6H PRN PRN Reason: FEVER OR PAIN Amlodipine Besylate (Norvasc -) 10 mg PO DAILY [facility] Last Admin: 12/24/16 10:37 Dose: 10 mg Apixaban (Eliquis -) 5 mg PO BID [facility] Aspirin (Ecotrin -) 81 mg PO DAILY [facility] Last Admin: 12/24/16 10:37 Dose: 81 mg Atorvastatin Calcium (Lipitor -) 20 mg PO HS [facility] Last Admin: 12/24/16 21:16 Dose: 20 mg Folic Acid (Folic Acid -) 1 mg PO DAILY [facility] Last Admin: 12/24/16 10:37 Dose: 1 mg Glimepiride (Amaryl -) 4 mg PO DAILY@0700 [facility] Last Admin: 12/25/16 06:22 Dose: 4 mg Sodium Chloride (Normal Saline -) 1,000 mls @ 50 mls/hr IV ASDIR [facility] Last Admin: 12/24/16 16:14 Dose: 50 mls/hr Insulin Aspart (Novolog Vial Sliding Scale -) 1 vial SQ TIDAC [facility] PRN Reason: Protocol Last Admin: 12/25/16 06:22 Dose: Not Given Pantoprazole Sodium (Protonix -) 20 mg PO DAILY [facility] Last Admin: 12/24/16 10:37 Dose: 20 mg Pregabalin (Lyrica -) 50 mg PO TID [facility] Last Admin: 12/25/16 06:22 Dose: 50 mg - Objective Vital Signs: Vital Signs Temperature 98.2 F 12/25/16 05:00 Pulse Rate 80 12/25/16 05:00 Respiratory Rate 18 12/25/16 01:00 Blood Pressure 115/74 12/25/16 05:00 O2 Sat by Pulse Oximetry (%) 96 12/24/16 20:30 Constitutional: Yes: Well Nourished, Calm Eyes: Yes: WNL HENT: Yes: WNL Neck: Yes: WNL Cardiovascular: Yes: Regular Rate and Rhythm, S1, S2 Respiratory: Yes: CTA Bilaterally Gastrointestinal: Yes: Normal Bowel Sounds, Soft Extremities: Yes: WNL Edema: No Labs: CBC, BMP Problem List - Problems (1) Dizziness and giddiness Code(s): R42 - DIZZINESS AND GIDDINESS (2) Exertional dyspnea Code(s): R06.09 - OTHER FORMS OF DYSPNEA (3) Near syncope Code(s): R55 - SYNCOPE AND COLLAPSE (4) Weakness Code(s): R53.1 - WEAKNESS (5) CAD (coronary artery disease) Code(s): I25.10 - ATHSCL HEART DISEASE OF [place] CORONARY [place] W/O ANG PCTRS (6) Diabetes mellitus Code(s): E11.9 - TYPE 2 DIABETES MELLITUS WITHOUT COMPLICATIONS Qualifiers: Diabetes mellitus type: type 2 (7) HLD (hyperlipidemia) Code(s): E78.5 - HYPERLIPIDEMIA, UNSPECIFIED (8) HTN (hypertension) Code(s): I10 - ESSENTIAL (PRIMARY) HYPERTENSION Qualifiers: (9) Thyroid nodule Code(s): E04.1 - NONTOXIC SINGLE THYROID NODULE (10) Type 2 diabetes mellitus with diabetic neuropathy, unspecified Code(s): E11.40 - TYPE 2 DIABETES MELLITUS WITH DIABETIC NEUROPATHY, UNSP (11) Pulmonary embolism Code(s): I26.99 - OTHER PULMONARY EMBOLISM WITHOUT ACUTE COR PULMONALE Assessment/Plan PLAN O2 PRN INHALED BRONCHODILATORS PRN PFTS OUTPATIENT WILL DEFER CHEST CTA IN VIEW OF ELEVATED CREATININE O2 [facility] FERRELL Problem List - Problems (1) Dizziness and giddiness Code(s): R42 - DIZZINESS AND GIDDINESS (2) Exertional dyspnea Code(s): R06.09 - OTHER FORMS OF DYSPNEA (3) Near syncope Code(s): R55 - SYNCOPE AND COLLAPSE (4) Weakness Code(s): R53.1 - WEAKNESS (5) CAD (coronary artery disease) Code(s): I25.10 - ATHSCL HEART DISEASE OF [place] CORONARY [place] W/O ANG PCTRS (6) Diabetes mellitus Code(s): E11.9 - TYPE 2 DIABETES MELLITUS WITHOUT COMPLICATIONS Qualifiers: Diabetes mellitus type: type 2 (7) HLD (hyperlipidemia) Code(s): E78.5 - HYPERLIPIDEMIA, UNSPECIFIED (8) HTN (hypertension) Code(s): I10 - ESSENTIAL (PRIMARY) HYPERTENSION Qualifiers: (9) Thyroid nodule Code(s): E04.1 - NONTOXIC SINGLE THYROID NODULE (10) Type 2 diabetes mellitus with diabetic neuropathy, unspecified Code(s): E11.40 - TYPE 2 DIABETES MELLITUS WITH DIABETIC NEUROPATHY, UNSP (11) Pulmonary embolism Code(s): I26.99 - OTHER PULMONARY EMBOLISM WITHOUT ACUTE COR PULMONALE
[2016-12-25 09:57] VITALS: BP 117/77; PULSE 94; TEMP 98.3
[2016-12-25] MEDS ORDERED: APIXABAN 5 MG TABLET PO SCH (10:00)
--- NOTE | 2016-12-25 13:55 | PN ---
Progress Note, Physician Chief Complaint: weakness History of Present Illness: comfortable, NAD - Current Medication List Current Medications: Active Medications Acetaminophen (Tylenol -) 650 mg PO Q6H PRN PRN Reason: FEVER OR PAIN Amlodipine Besylate (Norvasc -) 10 mg PO DAILY [facility] Last Admin: 12/25/16 09:10 Dose: 10 mg Apixaban (Eliquis -) 5 mg PO BID [facility] Last Admin: 12/25/16 09:10 Dose: 5 mg Aspirin (Ecotrin -) 81 mg PO DAILY [facility] Last Admin: 12/25/16 09:10 Dose: 81 mg Atorvastatin Calcium (Lipitor -) 20 mg PO HS [facility] Last Admin: 12/24/16 21:16 Dose: 20 mg Folic Acid (Folic Acid -) 1 mg PO DAILY [facility] Last Admin: 12/25/16 09:10 Dose: 1 mg Glimepiride (Amaryl -) 4 mg PO DAILY@0700 [facility] Last Admin: 12/25/16 06:22 Dose: 4 mg Sodium Chloride (Normal Saline -) 1,000 mls @ 50 mls/hr IV ASDIR [facility] Last Admin: 12/24/16 16:14 Dose: 50 mls/hr Insulin Aspart (Novolog Vial Sliding Scale -) 1 vial SQ TIDAC [facility] PRN Reason: Protocol Last Admin: 12/25/16 10:25 Dose: Not Given Pantoprazole Sodium (Protonix -) 20 mg PO DAILY [facility] Last Admin: 12/25/16 09:10 Dose: 20 mg Pregabalin (Lyrica -) 50 mg PO TID [facility] Last Admin: 12/25/16 13:47 Dose: 50 mg - Objective Vital Signs: Vital Signs Temperature 98.3 F 12/25/16 09:55 Pulse Rate 94 H 12/25/16 09:55 Respiratory Rate 20 12/25/16 09:55 Blood Pressure 117/77 12/25/16 09:55 O2 Sat by Pulse Oximetry (%) 94 L 12/25/16 09:55 Constitutional: Yes: Well Nourished, No Distress, Calm Cardiovascular: Yes: Regular Rate and Rhythm Respiratory: Yes: Regular Edema: Yes Edema: LLE: Trace, RLE: Trace Peripheral Pulses WNL: Yes Neurological: Yes: Alert, Confusion Labs: CBC, BMP 12/24/16 05:35 INR, PTT INR 2.79 (0.82-1.09) H 12/23/16 05:45 Problem List - Problems (1) Dizziness and giddiness Code(s): R42 - DIZZINESS AND GIDDINESS (2) Near syncope Assessment/Plan: CT head negative -Carotid U/S suggested CTA -CTA unremarkable -CTA chest as outpatient Code(s): R55 - SYNCOPE AND COLLAPSE (3) Diabetes mellitus Assessment/Plan: -uncontrolled with hga1c at 8.6 -on insulin sliding scale Code(s): E11.9 - TYPE 2 DIABETES MELLITUS WITHOUT COMPLICATIONS Qualifiers: Diabetes mellitus type: type 2 Assessment/Plan -F/U with pulmonary outpatient -CTA chest as outpatient -U/S doppler BLLE -INR 2.79- no more INR needed, switched to Eliquis -GI prophylaxis -PFT and V/Q scan as outpatient D/C back to [facility]
== END 2016-12-25 15:37 | disposition home or self-care (01) | DRG 312 ==
LOC: JER 12:23 → JERBED 18:04 → J5S 20:01 → J4W 12-20 00:22 → OBSVTOIN 12-23 15:15
PROVIDERS: ADMIT Student in an Organized Health Care Education/Training Program; ATTEND Family Medicine
DX: R55 Syncope and collapse (principal); E11.9 Type 2 diabetes mellitus without complications; E78.5 Hyperlipidemia, unspecified; I10 Essential (primary) hypertension; I25.10 Atherosclerotic heart disease of native coronary artery without angina pectoris; E03.9 Hypothyroidism, unspecified; R42 Dizziness and giddiness; I95.89 Other hypotension
CPT/HCPCS: 36415; 70450-TC; 70498-TC; 71020-TC; 80048; 80053; 80061; 81003; 82550; 82553; 83036; 83721; 84439; 84443; 84484; 85025; 85027; 85610; 93005; 93010; 93225; 93226; 93306-TC; 93880-TC; 93970-TC; 94761; 99283-25; G0378

== ENCOUNTER 2017-01-04 16:05 | Inpatient (IN) | payer BC ==
[2017-01-04 16:10] VITALS: BMI 29.7
--- NOTE | 2017-01-04 17:19 | PDOC ---
History of Present Illness <Stacy Hendrix - Last Filed: 01/04/17 19:46> <Lisette Aldana - Last Filed: 01/04/17 20:42> - General Chief Complaint: Lightheaded Stated Complaint: DIZZINESS,WEAKNESS Time Seen by Provider: 01/04/17 16:52 - History of Present Illness Initial Comments: 01/04/17 19:29 Patient is an 81 year old female with significant medical hx of pulmonary HTN, CAD, HLD, NIDDM, carotid stenosis (on Eliquis), HTN, aortic insufficiency, PE, shingles, and GERD who is who has been sent to the ED by PCP with script for admission for dizziness and pre-syncope. Patient complains of dizziness that she characterizes as lightheadedness; she states that she feels as if shes going to pass out. The patient notes that her dizzy spells worsen when she stands up. Patient also has a secondary complaint of generalized weakness. Denies any visual changes, nausea, vomiting, palpitations, chest pain, or shortness of breath. Patient was admitted earlier this month on 12/19-12/25 for complaint of weakness and received a vascular study that was negative for DVT. PCP: Maldonado Whaley MD Surgical Hx: x 5, hysterectomy (40 years ago) (Stacy Hendrix) Past History <Stacy Hendrix - Last Filed: 01/04/17 19:46> - Past Medical History Anemia: Yes Cardiac Disorders: Yes Diabetes: Yes HTN: Yes Hypercholesterolemia: Yes Suicide Attempt (Hx): No - Immunization History Immunization Up to Date: Yes - Psycho/Social/Smoking Cessation Hx Anxiety: No Suicidal Ideation: No Smoking Status: No Smoking History: Never smoked Have you smoked in the past 12 months: No Number of Cigarettes Smoked Daily: 0 Information on smoking cessation initiated: No Hx Alcohol Use: No Drug/Substance Use Hx: No Substance Use Type: None Hx Substance Use Treatment: No <Lisette Aldana - Last Filed: 01/04/17 20:42> - Past Medical History Allergies/Adverse Reactions: Allergies Allergy/AdvReac Type Severity Reaction Status Date / Time lactose AdvReac Severe Verified 01/04/17 16:10 Home Medications: Ambulatory Orders Aspirin [ASA -] 81 mg PO DAILY #0 tab.chew 12/14/11 Folic Acid - 1 mg PO DAILY 07/06/13 Atorvastatin Ca [Lipitor] 10 mg PO HS 07/27/14 Pregabalin [Lyrica -] 50 mg PO TID #90 capsule MDD 3 10/17/15 Amlodipine Besylate [Norvasc -] 10 mg PO DAILY #30 tablet 02/23/16 Glimepiride [Amaryl] 4 mg PO DAILY 08/14/16 Pantoprazole Sodium [Protonix -] 40 mg PO DAILY #30 08/19/16 Apixaban [Eliquis] 5 mg PO BID #30 tablet MDD 2 12/24/16 Review of Systems <Stcay Hendrix - Last Filed: 01/04/17 19:46> <Lisette Aldana - Last Filed: 01/04/17 20:42> - Review of Systems Comments:: 01/04/17 19:30 CONSTITUTIONAL: Present: generalized weakness Absent: fever, chills, diaphoresis, malaise, loss of appetite HEENT: Absent: rhinorrhea, nasal congestion, throat pain, throat swelling, difficulty swallowing, mouth swelling, ear pain, eye pain, visual changes CARDIOVASCULAR: Present: lightheadedness Absent: chest pain, syncope, palpitations, irregular heart rate, peripheral edema RESPIRATORY: Absent: cough, shortness of breath, dyspnea with exertion, orthopnea, wheezing, stridor, hemoptysis GASTROINTESTINAL: Absent: abdominal pain, abdominal distension, nausea, vomiting, diarrhea, constipation, melena, hematochezia GENITOURINARY: Absent: dysuria, frequency, urgency, hesitancy, hematuria, flank pain, genital pain MUSCULOSKELETAL: Absent: myalgia, arthralgia, joint swelling SKIN: Absent: rash, itching, pallor HEMATOLOGIC/IMMUNOLOGIC: Absent: easy bleeding, easy bruising, lymphadenopathy, frequent infections ENDOCRINE: Absent: unexplained weight gain, unexplained weight loss, heat intolerance, cold intolerance NEUROLOGIC: Present: dizziness Absent: headache, focal weakness or paresthesia, unsteady gait, seizure, mental status changes, bladder or bowel incontinence. PSYCHIATRIC: Absent: anxiety, depression, suicidal or homicidal ideation, hallucinations (Ruma,Stacy) *Physical Exam <Stacy Hendrix - Last Filed: 01/04/17 19:46> <Lisette Aldana - Last Filed: 01/04/17 20:42> - Vital Signs Last Vital Signs Temp Pulse Resp BP Pulse Ox 97 F L 72 19 148/86 97 01/04/17 19:56 01/04/17 19:56 01/04/17 19:56 01/04/17 19:56 01/04/17 19:56 - Physical Exam Comments: 01/04/17 19:31 GENERAL: Well developed, well nourished. Awake and alert. Afebrile. No acute distress. HEENT: Normocephalic, atraumatic. PERRLA, EOMI. No conjunctival pallor. Sclera are non- icteric. Moist mucous membranes. Oropharynx is clear. NECK: Supple. Full ROM. No JVD. Carotid pulses 2+ and symmetric, without bruits. No thyromegaly. No lymphadenopathy. CARDIOVASCULAR: Regular rate and rhythm. Slightly hypertensive. No bruits. No murmurs, rubs, or gallops. Distal pulses are 2+ and symmetric. PULMONARY: No evidence of respiratory distress. Lungs clear to auscultation bilaterally. No wheezing, rales or rhonchi. ABDOMINAL: Soft. Non-tender. Non-distended. No rebound or guarding. No organomegaly. Normoactive bowel sounds. MUSCULOSKELETAL: Normal range of motion at all joints. No bony deformities or tenderness. No CVA tenderness. EXTREMITIES: No cyanosis. No clubbing. No edema. No calf tenderness. SKIN: Warm and dry. Normal capillary refill. No rashes. No jaundice. NEUROLOGICAL: Alert, awake, appropriate. Conversant. Cranial nerves 2-12 intact. Normal speech. PSYCHIATRIC: Cooperative. Good eye contact. Appropriate mood and affect. (Stacy Hendrix) Heart Score/ECG Review <Stacy Hendrix - Last Filed: 01/04/17 19:46> <Lisette Aldana - Last Filed: 01/04/17 20:42> #1 01/04/17 19:33 Normal sinus rhythm at 72 bpm Left axis deviation Inferior-posterior infarct, age undetermined Cannot rule out Anterior infarct, age undetermined Abnormal ECG (Stacy Hendrix) ED Treatment Course - LABORATORY CBC & Chemistry Diagram: 01/04/17 17:25 01/04/17 17:25 <Stacy Hendrix - Last Filed: 01/04/17 19:46> - LABORATORY CBC & Chemistry Diagram: 01/04/17 17:25 01/04/17 17:25 <Lisette Aldana - Last Filed: 01/04/17 20:42> - ADDITIONAL ORDERS Additional order review: Laboratory Results 01/04/17 01/04/17 01/04/17 19:25 17:25 17:25 INR Sodium 141 Potassium 3.7 Chloride 106 Carbon Dioxide 25 Anion Gap 10 BUN 20 H Creatinine 1.2 H Creat Clearance w eGFR 42.90 Random Glucose 198 H D Calcium 9.4 Total Bilirubin 0.5 AST 20 ALT 21 Alkaline Phosphatase 97 Creatine Kinase 173 Creatine Kinase Index 1.0 CK-MB (CK-2) 1.725 Troponin I < 0.02 Total Protein 8.3 H Albumin 3.8 Urine Color Yellow Urine Appearance Clear Urine pH 5.0 D Urine Protein Negative Urine Glucose (UA) 1+ H Urine Ketones Negative Urine Blood Negative Urine Nitrite Negative Urine Bilirubin Negative Urine Urobilinogen Negative Ur Leukocyte Esterase 1+ H Urine RBC <1 Urine WBC 9 Ur Epithelial Cells Rare Hyaline Casts 3 Urine Mucus Rare Blood Type O POSITIVE Antibody Screen Negative 01/04/17 17:25 INR 1.43 H D Sodium Potassium Chloride Carbon Dioxide Anion Gap BUN Creatinine Creat Clearance w eGFR Random Glucose Calcium Total Bilirubin AST ALT Alkaline Phosphatase Creatine Kinase Creatine Kinase Index CK-MB (CK-2) Troponin I Total Protein Albumin Urine Color Urine Appearance Urine pH Urine Protein Urine Glucose (UA) Urine Ketones Urine Blood Urine Nitrite Urine Bilirubin Urine Urobilinogen Ur Leukocyte Esterase Urine RBC Urine WBC Ur Epithelial Cells Hyaline Casts Urine Mucus Blood Type Antibody Screen 01/04/17 17:25 RBC 4.92 MCV 74.6 L MCHC 31.8 L RDW 15.8 H MPV 9.2 Neutrophils % 49.2 Lymphocytes % 38.8 D Monocytes % 7.4 Eosinophils % 3.4 Basophils % 1.2 - RADIOLOGY Radiology Studies Ordered: Category Date Time Status CHEST X-RAY PORTABLE* [RAD] Stat Radiology 01/04/17 17:19 Completed Radiograph Interpretation: 01/04/17 19:46 Chest X-Ray Impression: No acute disease. Reported By: Barrett Powers MD (Stacy Hendrix) *DC/Admit/Observation/Transfer <Ruma,Stacy - Last Filed: 01/04/17 19:46> - Discharge Dispostion Admit: Yes <Lisette Aldana - Last Filed: 01/04/17 20:42> Diagnosis at time of Disposition: Dizziness and giddiness, Near syncope Type 2 diabetes mellitus with diabetic neuropathy, unspecified Qualifiers: Diabetes mellitus nursing home insulin use: unspecified terminal supervisor insulin use status Qualified Code(s): E11.40 - Type 2 diabetes mellitus with diabetic neuropathy, unspecified - Referrals - Attestations Scribe Attestion: 01/04/17 19:34 Documentation prepared by Stacy Hendrix, acting as medical appliance maker for Lisette Aldana MD. (Stacy Hendrix)
[2017-01-04 18:23] LABS: ALBUMIN 3.8 g/dl (3.4-5.0); ANION GAP 10 (8-16); CALCIUM 9.4 mg/dL (8.5-10.1); CO2 25 mmol/L (21-32); CREATININE 1.2 mg/dL (0.55-1.02); GLUCOSE,RANDOM 198 mg/dL (74-106); SGOT/AST 20 U/L (15-37); SGPT/ALT 21 U/L (12-78)
[2017-01-04 18:27] LABS: ALK PHOS 97 U/L (45-117); BASOPHIL 1.2 % (0-2.0); BILIRUBIN,TOTAL 0.5 mg/dL (0.2-1.0); EOSINOPHIL 3.4 % (0-4.5); MCH 23.7 pg (25.7-33.7); MCHC 31.8 g/dl (32.0-36.0); MEAN CELL VOLUME 74.6 fl (80-96); MEAN PLT VOLUME 9.2 fl (7.5-11.1); NEUTROPHILS 49.2 % (42.8-82.8); PLATELET COUNT 288 K/MM3 (134-434); RDW 15.8 % (11.6-15.6); TOT PROT 8.3 g/dl (6.4-8.2); TROPONIN I < 0.02 ng/ml (0.00-0.05); WHITE BLOOD COUNT 4.7 K/mm3 (4.0-10.0)
[2017-01-04 18:32] LABS: INR 1.43 (0.82-1.09); PROTHROMBIN TIME (PATIENT) 15.8 SEC (9.98-11.88)
[2017-01-04 19:58] LABS: URINE APPEARANCE CLEAR; URINE BILIRUBIN NEGATIVE (NEGATIVE); URINE BLOOD NEGATIVE (NEGATIVE); URINE COLOR YELLOW; URINE GLUCOSE (UA) 1+ (NEGATIVE); URINE KETONE NEGATIVE (NEGATIVE); URINE NITRITE NEGATIVE (NEGATIVE); URINE PROTEIN NEGATIVE (NEGATIVE); URINE UROBILINOGEN NEGATIVE mg/dL (0.2-1.0)
[2017-01-04 20:04] LABS: URINE LEUK ESTERASE 1+ (NEGATIVE)
[2017-01-04 20:16] LABS: URINE HYALINE CAST 3 /lpf; URINE MUCUS RARE; URINE RBC <1 /hpf (0-3); URINE WBC 9 /hpf (3-5)
[2017-01-04] MEDS ORDERED: ACETAMINOPHEN 325 MG TABLET (FP) PO PRN (22:15)
[2017-01-05] MEDS ORDERED: APIXABAN 5 MG TABLET PO ONE (00:15)
[2017-01-05] MEDS ORDERED: ATORVASTATIN CA 10 MG TABLET (FP) PO ONE (00:15)
[2017-01-05 06:37] LABS: BASOPHIL 0.8 % (0-2.0); EOSINOPHIL 3.8 % (0-4.5); MCH 24.2 pg (25.7-33.7); MEAN CELL VOLUME 75.6 fl (80-96); MEAN PLT VOLUME 8.9 fl (7.5-11.1); NEUTROPHILS 52.6 % (42.8-82.8); PLATELET COUNT 267 K/MM3 (134-434); RDW 16.2 % (11.6-15.6)
[2017-01-05] MEDS: INSULIN (NOVOLOG) ASPART 100 UNITS/ML 10ML VIAL SQ SCH ×4 (06:39→21:36)
[2017-01-05] MEDS: GLIMEPIRIDE 4 MG TABLET (FP) PO SCH (06:40)
[2017-01-05 07:06] LABS: ALBUMIN 3.5 g/dl (3.4-5.0); ANION GAP 7 (8-16); CALCIUM 8.8 mg/dL (8.5-10.1); CO2 27 mmol/L (21-32)
[2017-01-05 07:13] LABS: ALK PHOS 84 U/L (45-117); BILIRUBIN,TOTAL 0.7 mg/dL (0.2-1.0); CREATININE 0.9 mg/dL (0.55-1.02); GLUCOSE,RANDOM 134 mg/dL (74-106); SGOT/AST 19 U/L (15-37); SGPT/ALT 20 U/L (12-78); TOT PROT 7.6 g/dl (6.4-8.2); TROPONIN I < 0.02 ng/ml (0.00-0.05)
--- NOTE | 2017-01-05 08:17 | HP ---
Admitting History and Physical - Admission History of Present Illness: 81 year old female with significant medical hx of pulmonary HTN, CAD, HLD, NIDDM , carotid stenosis , HTN, aortic insufficiency, PE(on Eliquis), shingles, and GERD who is who has been sent to the ED by PCP with script for admission for dizziness and pre-syncope. Patient complains of dizziness that she characterizes as lightheadedness; she states that she feels as if shes going to pass out. The patient notes that her dizzy spells worsen when she stands up. Patient also has a secondary complaint of generalized weakness. Denies any visual changes, nausea, vomiting, palpitations, chest pain, or shortness of breath. Patient was admitted earlier this month on 12/19-12/25 for complaint of weakness and received a vascular study that was negative for DVT. - Past Medical History Cardiovascular: Yes: Pulmonary Hypertension, CAD (reported CAD), HTN, Hyperlipdemia, Aortic Insufficiency Pulmonary: Yes: Pulmonary Embolus (following ~50 years ago, and again in 2013 while hospitalzied for shingles per patient's report) Gastrointestinal: Yes: GERD Endocrine: Yes: Diabetes Mellitus, Other (mutlinodular goitre) - Past Surgical History Past Surgical History: Yes: (x5), Hysterectomy (JANINE ~ 40 years ago) - Smoking History Smoking history: Never smoked Have you smoked in the past 12 months: No Aproximately how many cigarettes per day: 0 - Alcohol/Substance Use Hx Alcohol Use: No History of Substance Use: reports: None Home Medications - Allergies Allergies/Adverse Reactions: Allergies Allergy/AdvReac Type Severity Reaction Status Date / Time lactose AdvReac Severe Verified 01/04/17 16:10 - Home Medications Home Medications: Ambulatory Orders Aspirin [ASA -] 81 mg PO DAILY #0 tab.chew 12/14/11 Folic Acid - 1 mg PO DAILY 07/06/13 Atorvastatin Ca [Lipitor] 10 mg PO HS 07/27/14 Pregabalin [Lyrica -] 50 mg PO TID #90 capsule MDD 3 10/17/15 Amlodipine Besylate [Norvasc -] 10 mg PO DAILY #30 tablet 02/23/16 Glimepiride [Amaryl] 4 mg PO DAILY 08/14/16 Pantoprazole Sodium [Protonix -] 40 mg PO DAILY #30 08/19/16 Apixaban [Eliquis] 5 mg PO BID #30 tablet MDD 2 12/24/16 Family Disease History - Family Disease History Family Disease History: Diabetes: Sister, Heart Disease: Brother, CA: Father ( colon cancer), Sister Review of Systems - Review of Systems Constitutional: reports: Weakness Cardiovascular: denies: Chest Pain, Palpitations, Shortness of Breath Respiratory: denies: SOB, SOB on Exertion Gastrointestinal: denies: Abdominal Pain Neurological: reports: Dizziness, Unsteady Gait, Weakness Physical Examination Vital Signs: Vital Signs Temperature 98.2 F 01/05/17 02:00 Pulse Rate 82 01/05/17 06:00 Respiratory Rate 16 01/05/17 06:15 Blood Pressure 167/84 01/05/17 06:00 O2 Sat by Pulse Oximetry (%) 98 01/05/17 06:15 Cardiovascular: Yes: Regular Rate and Rhythm Respiratory: Yes: Regular, CTA Bilaterally Gastrointestinal: Yes: Normal Bowel Sounds, Soft Edema: No Neurological: Yes: Alert, Oriented, Unsteady Gait, Weakness Labs: CBC, BMP 01/05/17 05:25 01/05/17 05:25 Problem List - Problems (1) Dizziness and giddiness Assessment/Plan: TELEMTRY CARDIO PREVIOUS W/U UNREVEALING ORTHOSTATIC BP DC LYRICA AND MONITOR NEURO Code(s): R42 - DIZZINESS AND GIDDINESS (2) Near syncope Assessment/Plan: ABOVE Code(s): R55 - SYNCOPE AND COLLAPSE (3) Pulmonary embolism Assessment/Plan: ON ELIQUIS Code(s): I26.99 - OTHER PULMONARY EMBOLISM WITHOUT ACUTE COR PULMONALE (4) Type 2 diabetes mellitus with diabetic neuropathy, unspecified Assessment/Plan: BGM ENDO Code(s): E11.40 - TYPE 2 DIABETES MELLITUS WITH DIABETIC NEUROPATHY, UNSP Qualifiers: Diabetes mellitus senior care insulin use: unspecified senior care insulin use status Qualified Code(s): E11.40 - Type 2 diabetes mellitus with diabetic neuropathy, unspecified
[2017-01-05] MEDS ORDERED: amLODIPine BESYLATE 10 MG TABLET (FP) PO SCH (10:00)
[2017-01-05] MEDS ORDERED: PT OWN MED DRAWER 7, Y5N ONE ×2 (11:04→21:19)
[2017-01-05] MEDS: ASPIRIN 81 MG CHEWABLE TABLETS PO SCH (11:06)
[2017-01-05] MEDS: PANTOPRAZOLE 40 MG TABLET (FP) PO SCH (11:07)
[2017-01-05] MEDS: APIXABAN 5 MG TABLET PO SCH ×2 (11:07→22:10)
[2017-01-05] MEDS: FOLIC ACID 1 MG TABLET (FP) PO SCH (11:07)
--- NOTE | 2017-01-05 13:01 | EKG ---
Test Reason : Blood Pressure : / mmHG Vent. Rate : 063 BPM Atrial Rate : 063 BPM P-R Int : 208 ms QRS Dur : 074 ms QT Int : 474 ms P-R-T Axes : 042 -21 031 degrees QTc Int : 485 ms NORMAL SINUS RHYTHM INFERIOR INFARCT (CITED ON OR BEFORE 14-AUG-2016) ABNORMAL ECG Confirmed by SHANICE HER MD ([id number]) on 01/05/2017 1:01:28 PM Referred By: April REYES Confirmed By:SHANICE HER MD
--- NOTE | 2017-01-05 13:01 | EKG ---
Test Reason : Blood Pressure : / mmHG Vent. Rate : 072 BPM Atrial Rate : 072 BPM P-R Int : 198 ms QRS Dur : 076 ms QT Int : 424 ms P-R-T Axes : 023 -38 022 degrees QTc Int : 464 ms NORMAL SINUS RHYTHM LEFT AXIS DEVIATION INFERIOR-POSTERIOR INFARCT (CITED ON OR BEFORE 14-AUG-2016) CANNOT RULE OUT ANTERIOR INFARCT , AGE UNDETERMINED ABNORMAL ECG WHEN COMPARED WITH ECG OF 19-DEC-2016 13:39, NO SIGNIFICANT CHANGE WAS FOUND Confirmed by SHANICE HER MD ([id number]) on 01/05/2017 1:00:42 PM Referred By: Confirmed By:SHANICE HER MD
--- NOTE | 2017-01-05 14:32 | CON.CARD ---
Consult Consult Specialty:: Cardiology Referred by:: Dr Rodriguez Reason for Consultation:: dizziness - History of Present Illness Chief Complaint: dizziness History of Present Illness: 81 year old female history of pulmonary HTN, CAD, HLD, NIDDM, carotid stenosis , HTN, aortic insufficiency, PE(on Eliquis), shingles, and GERD who was admitted 01/05/17 with dizziness/lightheadedness and near syncope, always while standing or starting to walk for the past several weeks. Recently admitted with similar complaints and normal Echo and vascular study. Echocardiogram 12/20/16 nlef FCDAOV, mild AI/MR/PI Found today to be orthostatic by > 15 mmHg. - History Source History Provided By: Patient, Medical Record - Past Medical History Cardio/Vascular: Yes: Pulmonary Hypertension, CAD (reported CAD), HTN, Hyperlipdemia, Aortic Insufficiency Pulmonary: Yes: Pulmonary Embolus (following ~50 years ago, and again in 2013 while hospitalzied for shingles per patient's report) Gastrointestinal: Yes: GERD Endocrine: Yes: Diabetes Mellitus, Other (mutlinodular goitre) - Past Surgical History Past Surgical History: Yes: (x5), Hysterectomy (JANINE ~ 40 years ago) - Alcohol/Substance Use Hx Alcohol Use: No History of Substance Use: reports: None - Smoking History Smoking history: Never smoked Have you smoked in the past 12 months: No Aproximately how many cigarettes per day: 0 Home Medications - Allergies Allergies/Adverse Reactions: Allergies Allergy/AdvReac Type Severity Reaction Status Date / Time lactose AdvReac Severe Verified 01/04/17 16:10 - Home Medications Home Medications: Ambulatory Orders Aspirin [ASA -] 81 mg PO DAILY #0 tab.chew 12/14/11 Folic Acid - 1 mg PO DAILY 07/06/13 Atorvastatin Ca [Lipitor] 10 mg PO HS 07/27/14 Pregabalin [Lyrica -] 50 mg PO TID #90 capsule MDD 3 10/17/15 Amlodipine Besylate [Norvasc -] 10 mg PO DAILY #30 tablet 02/23/16 Glimepiride [Amaryl] 4 mg PO DAILY 08/14/16 Pantoprazole Sodium [Protonix -] 40 mg PO DAILY #30 08/19/16 Apixaban [Eliquis] 5 mg PO BID #30 tablet MDD 2 12/24/16 Family Disease History - Family Disease History Family Disease History: Diabetes: Sister, Heart Disease: Brother, CA: Father ( colon cancer), Sister Review of Systems - Review of Systems Constitutional: reports: Lethargy, Weakness Eyes: reports: No Symptoms HENT: reports: No Symptoms Neck: reports: No Symptoms Cardiovascular: reports: No Symptoms Respiratory: reports: No Symptoms Neurological: reports: Dizziness Vital Signs: Vital Signs Temperature 98.4 F 01/05/17 11:54 Pulse Rate 70 01/05/17 11:54 Respiratory Rate 17 01/05/17 11:54 Blood Pressure 150/74 01/05/17 11:54 O2 Sat by Pulse Oximetry (%) 99 01/05/17 08:00 Constitutional: Yes: Well Nourished, No Distress Eyes: Yes: Conjunctiva Clear, EOM Intact HENT: Yes: Atraumatic, Normocephalic Neck: Yes: Supple, Trachea Midline Respiratory: Yes: CTA Bilaterally Gastrointestinal: Yes: Normal Bowel Sounds, Soft Renal/: Yes: WNL Cardiovascular: Yes: Regular Rate and Rhythm JVD: No Carotid Bruit: No PMI: Non-Displaced Heart Sounds: Yes: S1, S2 Edema: No Peripheral Pulses WNL: Yes - Other Data Labs, Other Data: CBC, BMP 01/05/17 05:25 01/05/17 05:25 INR, PTT INR 1.43 (0.82-1.09) H D 01/04/17 17:25 Troponin, BNP 01/05/17 05:25 Troponin I < 0.02 Troponin, BNP 01/05/17 05:25 Troponin I < 0.02 nsr old iwmi Ejection Fraction %: LVEF > or = 40 % Imaging - Results Chest X-ray: Report Reviewed (mary jo) Problem List - Problems (1) Dizziness and giddiness Assessment/Plan: The patient is orthostatic by > 15 mm Hg. Titrate all BP medications to standing blood pressure. Hold amlodpine for now, follow orthostatic blood pressure. no need to repeat cardiac testing. Recheck daily orthostatics. Code(s): R42 - DIZZINESS AND GIDDINESS
--- NOTE | 2017-01-05 15:22 | CONSULT ---
Consult Consult Specialty:: PM&R Reason for Consultation:: deconditioning - History of Present Illness History of Present Illness: This is an 81 year old woman with a medical history of CAD, HTN, HLD, aortic insufficiency, carotid stenosis, PE on Eliquis, pulm HTN, GERD, DM, shingles, who presented to the ED 01/04/17 with 3-4 weeks episodic dizziness. She denies any inciting event, and denies pain. Since this started she has needed more assistance from her daughter in IADLs. Cardiology was consulted, who found she was orthostatic. She is pending Neurology consult. Physiatry is being consulted for further recommendations. - History Source History Provided By: Patient, Medical Record - Past Medical History Cardio/Vascular: Yes: Pulmonary Hypertension, CAD (reported CAD), HTN, Hyperlipdemia, Aortic Insufficiency Pulmonary: Yes: Pulmonary Embolus (following ~50 years ago, and again in 2013 while hospitalzied for shingles per patient's report) Gastrointestinal: Yes: GERD Endocrine: Yes: Diabetes Mellitus, Other (mutlinodular goitre) - Past Surgical History Past Surgical History: Yes: (x5), Hysterectomy (JANINE ~ 40 years ago) - Alcohol/Substance Use Hx Alcohol Use: No History of Substance Use: reports: None - Smoking History Smoking history: Never smoked Have you smoked in the past 12 months: No Aproximately how many cigarettes per day: 0 - Social History Usual Living Arrangement: Alone (in apartment without stairs to elevator; previously Independent in ADLs, has assistance in IADLs from daughter, has both cane and Rollator which she uses intermittently) Home Medications - Allergies Allergies/Adverse Reactions: Allergies Allergy/AdvReac Type Severity Reaction Status Date / Time lactose AdvReac Severe Verified 01/04/17 16:10 - Home Medications Home Medications: Ambulatory Orders Aspirin [ASA -] 81 mg PO DAILY #0 tab.chew 12/14/11 Folic Acid - 1 mg PO DAILY 07/06/13 Atorvastatin Ca [Lipitor] 10 mg PO HS 07/27/14 Pregabalin [Lyrica -] 50 mg PO TID #90 capsule MDD 3 10/17/15 Amlodipine Besylate [Norvasc -] 10 mg PO DAILY #30 tablet 02/23/16 Glimepiride [Amaryl] 4 mg PO DAILY 08/14/16 Pantoprazole Sodium [Protonix -] 40 mg PO DAILY #30 08/19/16 Apixaban [Eliquis] 5 mg PO BID #30 tablet MDD 2 12/24/16 Family Disease History - Family Disease History Family Disease History: Diabetes: Sister, Heart Disease: Brother, CA: Father ( colon cancer), Sister Review of Systems Findings/Remarks: She denies fevers, chills, changes in vision or hearing, CP, palpations, SOB, abdominal pain, nausea, vomiting, constipation, diarrhea, dysuria, numbness/ paresthesias/ weakness x4 extremities, or rashes. She notes DAVIES since this dizziness started. Physical Exam Vital Signs: Vital Signs Temperature 98.4 F 01/05/17 11:54 Pulse Rate 70 01/05/17 11:54 Respiratory Rate 17 01/05/17 11:54 Blood Pressure 150/74 01/05/17 11:54 O2 Sat by Pulse Oximetry (%) 99 01/05/17 08:00 Musculoskeletal: Yes: Other (General: calm elderly AAF sitting EOB NAD, AAO x3 HEENT: NCAT EOMI OP clear N/M: CN II- XII grossly Intact; B shoulder flexion to 160 degrees, 4+/5 B triceps then 5-/5 BUE/ BLE; Pinprick Intact BUE/ BLE, diffusely hyporeflexic BUE/ BLE, negative B Kaplan's sign Extremities: no BLE pitting edema, no B calf tenderness) Labs: CBC, BMP 01/05/17 05:25 01/05/17 05:25 Imaging - Results Chest X-ray: Report Reviewed (CXR 01/04/17 shows no acute pathology) Assessment/Plan Impression: 1) Deficits mobility/ ADLs 2) Near syncope, likely due to orthostatics 3) Extensive cardiac hx including CAD, HTN, HLD, aortic insufficiency, carotid stenosis 4) hx PE on Eliquis, pulm HTN 5) hx GERD 6) hx DM 7) hx shingles 8) Up to date pneumovax, declines flu shots Recommendations: 1) PT for stretching strengthening ROM balance functional mobility and endurance 2) Falls, safety precautions 3) Cardiac precautions and cardiac monitoring 4) Diabetic precautions 5) May use abdominal binder and/ or compression stockings during functional mobility as needed for dizziness 6) DVT ppx: on Eliquis 7) Denies constipation on current bowel regimen 8) Skin protection: float heels, frequent turning 9) Nutrition consult for overweight 10) Cardiac and Medicine work-up in progress 11) Pending Neurology consult 12) Discharge planning: she will likely be able to return home with services, but if she declines then she would benefit from short- course inpatient rehabilitation Thank you for this referral.
--- NOTE | 2017-01-05 15:29 | CONSULT ---
Consultation: REQUESTING PROVIDER: CONSULT REQUEST: We have been asked to medically evaluate this patient for dizziness. HISTORY OF PRESENT ILLNESS: 81 yo F with PMhx of HTN, HLD, NIDDM, GERD, h/o PE(on eliquis) presents after several episodes of dizziness and near syncope. Patient states that she has had several episodes of dizziness and syncope over the past month. These events always occur while standing and most often when walking or exerting herself. She states that she becomes very lightheaded and senses as if she is going to faint. Most recent event occurred while she was in her kitchen and making something to eat when she suddenly became dizzy and felt as if she was spinning. She subsequently slipped to floor but did not loose consciousness. These episodes are always relieved by sitting or resting and usually last less than a minute. Accompanied by palpitations but no chest pain. She denies hearing loss, nausea, vomiting, ear pain, headache or visual changes. These episodes do not occur while lying in bed or sudden head movements. Her sleep in good except for having 2-3 episodes of nocturia she sleeps 6-8hrs without issues. Denies CP,RIBERA, SOB, abd.pain, REVIEW OF SYSTEMS: CONSTITUTIONAL: Absent: fever, chills, diaphoresis, generalized weakness, malaise, loss of appetite, weight change HEENT: Absent: rhinorrhea, nasal congestion, throat pain, throat swelling, difficulty swallowing, mouth swelling, ear pain, eye pain, visual changes CARDIOVASCULAR: palpitations Absent: chest pain, syncope,, irregular heart rate, lightheadedness, peripheral edema RESPIRATORY: Absent: cough, shortness of breath, dyspnea with exertion, orthopnea, wheezing, stridor, hemoptysis GASTROINTESTINAL: Absent: abdominal pain, abdominal distension, nausea, vomiting, diarrhea, constipation, melena, hematochezia GENITOURINARY: Absent: dysuria, frequency, urgency, hesitancy, hematuria, flank pain, genital pain MUSCULOSKELETAL: Absent: myalgia, arthralgia, joint swelling, back pain, neck pain SKIN: Absent: rash, itching, pallor HEMATOLOGIC/IMMUNOLOGIC: Absent: easy bleeding, easy bruising, lymphadenopathy, frequent infections ENDOCRINE: Absent: unexplained weight gain, unexplained weight loss, heat intolerance, cold intolerance NEUROLOGIC: dizziness, unsteady gait Absent: headache, focal weakness or paresthesias,, seizure, mental status changes, bladder or bowel incontinence PSYCHIATRIC: Absent: anxiety, depression, suicidal or homicidal ideation, hallucinations. PHYSICAL EXAMINATION Vital Signs - 24 hr 01/04/17 01/04/17 01/05/17 19:56 22:28 00:00 Temperature 97 F L 97.7 F 98.5 F Pulse Rate 73 Pulse Rate [ 72 74 Right Apical] Pulse Rate [ Standing] Pulse Rate [ Supine] Respiratory 19 19 17 Rate Blood Pressure 140/74 Blood Pressure 148/86 135/79 [Left Arm] Blood Pressure [Standing] Blood Pressure [Supine] O2 Sat by Pulse 97 98 Oximetry (%) 01/05/17 01/05/17 01/05/17 02:00 06:00 06:15 Temperature 98.2 F Pulse Rate 68 82 Pulse Rate [ Right Apical] Pulse Rate [ Standing] Pulse Rate [ Supine] Respiratory 18 16 16 Rate Blood Pressure 140/74 167/84 Blood Pressure [Left Arm] Blood Pressure [Standing] Blood Pressure [Supine] O2 Sat by Pulse 98 Oximetry (%) 01/05/17 01/05/17 01/05/17 08:00 09:00 11:54 Temperature 98.4 F Pulse Rate 75 70 Pulse Rate [ Right Apical] Pulse Rate [ 78 Standing] Pulse Rate [ 76 Supine] Respiratory 14 17 Rate Blood Pressure 154/80 150/74 Blood Pressure [Left Arm] Blood Pressure 131/84 [Standing] Blood Pressure 147/76 [Supine] O2 Sat by Pulse 99 Oximetry (%) GENERAL: AAO x3 , NAD HEAD:NC/AT EYES:PERRLA, EOMI, Arcus senilis, sclera anicteric, conjunctiva clear. No lid lag. EARS, NOSE, THROAT: Ears normal, nares patent, oropharynx clear without exudates. Moist mucous membranes. NECK: Normal range of motion, supple without lymphadenopathy, JVD, or masses. LUNGS: CTAB, No wheezes, and no crackles. No accessory muscle use. HEART: RRR, normal S1 and S2 without murmur, rub or gallop. ABDOMEN: Soft, nontender, not distended, normoactive bowel sounds, no guarding, no rebound, no masses. No hepatomegaly or splenomegaly. MUSCULOSKELETAL: Normal range of motion at all joints. No bony deformities or tenderness. No CVA tenderness. UPPER EXTREMITIES: 2+ pulses, warm, well-perfused. No cyanosis. No clubbing. Cap refill <2 seconds. No peripheral edema. LOWER EXTREMITIES: 2+ pulses, warm, well-perfused. No calf tenderness. No peripheral edema. NEUROLOGICAL: Cranial nerves II-XII intact. Normal speech. Normal gait. 2+ bicep, Brachioradialis, patellar and ankle reflex. 5/5 strength in major muscle groups both upper and lower ext. PSYCHIATRIC: Cooperative. Good eye contact. Appropriate mood and affect. SKIN: Warm, dry, normal turgor, no rashes or lesions noted. Laboratory Results - last 24 hr 01/05/17 01/05/17 01/05/17 05:25 05:25 06:09 WBC 4.0 RBC 4.67 Hgb 11.3 Hct 35.3 MCV 75.6 L MCH 24.2 L MCHC 32.0 RDW 16.2 H Plt Count 267 MPV 8.9 Neutrophils % 52.6 Lymphocytes % 33.0 Monocytes % 9.8 Eosinophils % 3.8 Basophils % 0.8 Sodium 142 Potassium 4.1 Chloride 108 H Carbon Dioxide 27 Anion Gap 7 L BUN 16 Creatinine 0.9 D Creat Clearance w eGFR 59.80 POC Glucometer [phone] Random Glucose 134 H D Calcium 8.8 Total Bilirubin 0.7 D AST 19 ALT 20 Alkaline Phosphatase 84 Troponin I < 0.02 Total Protein 7.6 Albumin 3.5 01/05/17 11:53 WBC RBC Hgb Hct MCV MCH MCHC RDW Plt Count MPV Neutrophils % Lymphocytes % Monocytes % Eosinophils % Basophils % Sodium Potassium Chloride Carbon Dioxide Anion Gap BUN Creatinine Creat Clearance w eGFR POC Glucometer 159.26900 Random Glucose Calcium Total Bilirubin AST ALT Alkaline Phosphatase Troponin I Total Protein Albumin Active Medications Generic Name Dose Route Start Last Admin Trade Name Freq PRN Reason Stop Dose Admin Acetaminophen 650 mg 01/04/17 22:15 Tylenol - PO Q4H PRN FEVER OR PAIN Apixaban 5 mg 01/05/17 10:00 01/05/17 11:07 Eliquis - PO 5 mg BID ADRI Administration Aspirin 81 mg 01/05/17 10:00 01/05/17 11:06 Asa - PO 81 mg DAILY ADRI Administration Atorvastatin Calcium 10 mg 01/05/17 22:00 Lipitor - PO HS ADRI Folic Acid 1 mg 01/05/17 10:00 01/05/17 11:07 Folic Acid - PO 1 mg DAILY ADRI Administration Glimepiride 4 mg 01/05/17 07:00 01/05/17 06:40 Amaryl - PO 4 mg DAILY@0700 ADRI Administration Insulin Aspart 0 units 01/05/17 07:00 01/05/17 11:54 Novolog Vial SQ Not Given ACHS [facility] Protocol Pantoprazole Sodium 40 mg 01/05/17 10:00 01/05/17 11:07 Protonix - PO 40 mg DAILY ADRI Administration ASSESSMENT/PLAN: 81 yo F with PMhx of HTN, HLD, NIDDM, GERD, h/o PE(on eliquis) admitted to telemetry after several episodes of dizziness and near syncope. Problem List - Problems (1) Near syncope Assessment/Plan: * Most likely as result of orthostatic hypotension. BP sitting 169/80 and standing 145/75. >20 change. * Given that is does not occur in bed or position change BPPV or labrynthitis unlikely. * CT head was negative for acute IC bleed or pathology. * Echo done 12/20/16 shows Normal LV size and function with only mild AI/MR/PI. * Carotid dopplers did not show significant stenosis. * No significant events on tele. * Would recommend adjustment of BP meds as mentioned by cardiology. * Will continue to monitor on tele. Visit type - Emergency Visit Emergency Visit: Yes ED Registration Date: 01/04/17 Care time: The patient presented to the Emergency Department on the above date and was hospitalized for further evaluation of their emergent condition. - New Patient This patient is new to me today: Yes Date on this admission: 01/05/17 - Critical Care Critical Care patient: No
[2017-01-05] MEDS: ATORVASTATIN CA 10 MG TABLET (FP) PO SCH (21:36)
--- NOTE | 2017-01-06 01:03 | CONSULT ---
Consult Consult Specialty:: endocrine Reason for Consultation:: hypothyroidism - History of Present Illness Chief Complaint: weakness,near syncope History of Present Illness: 81 year old female history of pulmonary HTN, CAD, HLD, NIDDM, carotid stenosis , HTN, aortic insufficiency, PE(on Eliquis), shingles, and GERD who was admitted 01/05/17 with dizziness/lightheadedness and near syncope, always while standing or starting to walk for the past several weeks. Recently admitted with similar complaints and normal Echo and vascular study.she reports these episode usually occur when she standing or walking feels better when she lies down,denies recent fall,or trauma - History Source History Provided By: Patient - Past Medical History Cardio/Vascular: Yes: Pulmonary Hypertension, CAD (reported CAD), HTN, Hyperlipdemia, Aortic Insufficiency Pulmonary: Yes: Pulmonary Embolus (following ~50 years ago, and again in 2013 while hospitalzied for shingles per patient's report) Gastrointestinal: Yes: GERD Endocrine: Yes: Diabetes Mellitus, Other (mutlinodular goitre) - Past Surgical History Past Surgical History: Yes: (x5), Hysterectomy (JANINE ~ 40 years ago) - Alcohol/Substance Use Hx Alcohol Use: No History of Substance Use: reports: None - Smoking History Smoking history: Never smoked Have you smoked in the past 12 months: No Aproximately how many cigarettes per day: 0 - Social History Usual Living Arrangement: Alone (in apartment without stairs to elevator; previously Independent in ADLs, has assistance in IADLs from daughter, has both cane and Rollator which she uses intermittently) Home Medications - Allergies Allergies/Adverse Reactions: Allergies Allergy/AdvReac Type Severity Reaction Status Date / Time lactose AdvReac Severe Verified 01/04/17 16:10 - Home Medications Home Medications: Ambulatory Orders Aspirin [ASA -] 81 mg PO DAILY #0 tab.chew 12/14/11 Folic Acid - 1 mg PO DAILY 07/06/13 Atorvastatin Ca [Lipitor] 10 mg PO HS 07/27/14 Pregabalin [Lyrica -] 50 mg PO TID #90 capsule MDD 3 10/17/15 Amlodipine Besylate [Norvasc -] 10 mg PO DAILY #30 tablet 02/23/16 Glimepiride [Amaryl] 4 mg PO DAILY 08/14/16 Pantoprazole Sodium [Protonix -] 40 mg PO DAILY #30 08/19/16 Apixaban [Eliquis] 5 mg PO BID #30 tablet MDD 2 12/24/16 Family Disease History - Family Disease History Family Disease History: Diabetes: Sister, Heart Disease: Brother, CA: Father ( colon cancer), Sister Review of Systems - Review of Systems Constitutional: reports: Weakness Eyes: reports: No Symptoms HENT: reports: No Symptoms Neck: reports: No Symptoms Cardiovascular: reports: Palpitations, Shortness of Breath Respiratory: reports: Exercise Intolerance, SOB, SOB on Exertion Gastrointestinal: reports: Bloating Genitourinary: reports: No Symptoms Breasts: reports: No Symptoms Reported Musculoskeletal: reports: Muscle Pain, Muscle Cramps, Muscle Weakness Integumentary: reports: No Symptoms Neurological: reports: Unsteady Gait, Weakness Endocrine: reports: No Symptoms Hematology/Lymphatic: reports: No Symptoms Psychiatric: reports: No Symptoms Physical Exam Vital Signs: Vital Signs Temperature 97.8 F 01/05/17 20:00 Pulse Rate 91 H 01/05/17 20:00 Respiratory Rate 16 01/05/17 20:00 Blood Pressure 136/78 01/05/17 20:00 O2 Sat by Pulse Oximetry (%) 98 01/05/17 16:30 Constitutional: Yes: Anxious Eyes: Yes: EOM Intact HENT: Yes: Normocephalic Neck: Yes: Thyromegaly Cardiovascular: Yes: Regular Rate and Rhythm Respiratory: Yes: CTA Bilaterally Gastrointestinal: Yes: Normal Bowel Sounds ...Rectal Exam: Yes: Deferred Renal/: Yes: WNL Breast(s): Yes: WNL Musculoskeletal: Yes: Muscle Weakness Extremities: Yes: WNL Edema: No Neurological: Yes: Alert, Oriented ...Motor Strength: WNL Psychiatric: Yes: Alert, Oriented Problem List - Problems (1) Dizziness and giddiness Code(s): R42 - DIZZINESS AND GIDDINESS (2) Exertional dyspnea Code(s): R06.09 - OTHER FORMS OF DYSPNEA (3) Hoarseness Code(s): R49.0 - DYSPHONIA (4) Near syncope Code(s): R55 - SYNCOPE AND COLLAPSE (5) Type 2 diabetes mellitus with diabetic neuropathy, unspecified Code(s): E11.40 - TYPE 2 DIABETES MELLITUS WITH DIABETIC NEUROPATHY, UNSP Qualifiers: Diabetes mellitus long winder tender insulin use: unspecified long winder tender insulin use status Qualified Code(s): E11.40 - Type 2 diabetes mellitus with diabetic neuropathy, unspecified (6) Hypothyroid Code(s): E03.9 - HYPOTHYROIDISM, UNSPECIFIED Assessment/Plan Current Active Problems Abnormal CT scan (Acute) Dizziness and giddiness (Acute) Exertional dyspnea (Acute) Hoarseness (Acute) Hypothyroid (Acute) Near syncope (Acute) Pulmonary embolism (Acute) Reflux laryngitis (Acute) Type 2 diabetes mellitus with diabetic neuropathy, unspecified (Acute) multinodular thyroid gland Abnormal Lab Results 01/05/17 01/05/17 05:25 05:25 MCV 75.6 L MCH 24.2 L RDW 16.2 H Chloride 108 H Anion Gap 7 L Random Glucose 134 H D Laboratory Results - last 24 hr 01/05/17 01/05/17 01/05/17 05:25 05:25 06:09 WBC 4.0 RBC 4.67 Hgb 11.3 Hct 35.3 MCV 75.6 L MCH 24.2 L MCHC 32.0 RDW 16.2 H Plt Count 267 MPV 8.9 Neutrophils % 52.6 Lymphocytes % 33.0 Monocytes % 9.8 Eosinophils % 3.8 Basophils % 0.8 Sodium 142 Potassium 4.1 Chloride 108 H Carbon Dioxide 27 Anion Gap 7 L BUN 16 Creatinine 0.9 D Creat Clearance w eGFR 59.80 POC Glucometer 153.07896 Random Glucose 134 H D Calcium 8.8 Total Bilirubin 0.7 D AST 19 ALT 20 Alkaline Phosphatase 84 Troponin I < 0.02 Total Protein 7.6 Albumin 3.5 01/05/17 11:53 WBC RBC Hgb Hct MCV MCH MCHC RDW Plt Count MPV Neutrophils % Lymphocytes % Monocytes % Eosinophils % Basophils % Sodium Potassium Chloride Carbon Dioxide Anion Gap BUN Creatinine Creat Clearance w eGFR POC Glucometer 159.37331 Random Glucose Calcium Total Bilirubin AST ALT Alkaline Phosphatase Troponin I Total Protein Albumin plan: ck tsh free t4 ck cortisol level am analisa stocking
[2017-01-06] MEDS: INSULIN (NOVOLOG) ASPART 100 UNITS/ML 10ML VIAL SQ SCH ×4 (07:33→21:17)
[2017-01-06] MEDS ORDERED: PT OWN MED DRAWER 7, Y5N ONE ×2 (07:39→20:55)
[2017-01-06 09:19] LABS: BASOPHIL 1.6 % (0-2.0); EOSINOPHIL 3.8 % (0-4.5); MCH 23.9 pg (25.7-33.7); MEAN CELL VOLUME 74.6 fl (80-96); MEAN PLT VOLUME 8.6 fl (7.5-11.1); NEUTROPHILS 52.8 % (42.8-82.8); PLATELET COUNT 274 K/MM3 (134-434); RDW 16.1 % (11.6-15.6); WHITE BLOOD COUNT 3.9 K/mm3 (4.0-10.0)
[2017-01-06] MEDS: GLIMEPIRIDE 4 MG TABLET (FP) PO SCH (09:41)
[2017-01-06] MEDS: ASPIRIN 81 MG CHEWABLE TABLETS PO SCH (09:41)
[2017-01-06 09:42] LABS: ALBUMIN 3.6 g/dl (3.4-5.0); ALK PHOS 89 U/L (45-117); ANION GAP 7 (8-16); BILIRUBIN,TOTAL 0.6 mg/dL (0.2-1.0); CO2 25 mmol/L (21-32); GLUCOSE,RANDOM 169 mg/dL (74-106); SGOT/AST 19 U/L (15-37); SGPT/ALT 20 U/L (12-78); TOT PROT 7.8 g/dl (6.4-8.2)
[2017-01-06] MEDS: FOLIC ACID 1 MG TABLET (FP) PO SCH (09:42)
[2017-01-06] MEDS: PANTOPRAZOLE 40 MG TABLET (FP) PO SCH (09:42)
[2017-01-06] MEDS: APIXABAN 5 MG TABLET PO SCH ×2 (09:42→21:07)
--- NOTE | 2017-01-06 09:59 | PN ---
Progress Note, Physician History of Present Illness: BETTER THIS AM - Current Medication List Current Medications: Active Medications Acetaminophen (Tylenol -) 650 mg PO Q4H PRN PRN Reason: FEVER OR PAIN Apixaban (Eliquis -) 5 mg PO BID ON LICENSE OF [facility] Last Admin: 01/06/17 09:42 Dose: 5 mg Aspirin (Asa -) 81 mg PO DAILY ON LICENSE OF [facility] Last Admin: 01/06/17 09:41 Dose: 81 mg Atorvastatin Calcium (Lipitor -) 10 mg PO HS ON LICENSE OF [facility] Last Admin: 01/05/17 21:36 Dose: 10 mg Folic Acid (Folic Acid -) 1 mg PO DAILY ON LICENSE OF [facility] Last Admin: 01/06/17 09:42 Dose: 1 mg Glimepiride (Amaryl -) 4 mg PO DAILY@0700 ON LICENSE OF [facility] Last Admin: 01/06/17 09:41 Dose: 4 mg Insulin Aspart (Novolog Vial) 0 units SQ ACHS ON LICENSE OF [facility] PRN Reason: Protocol Last Admin: 01/06/17 07:33 Dose: Not Given Pantoprazole Sodium (Protonix -) 40 mg PO DAILY ON LICENSE OF [facility] Last Admin: 01/06/17 09:42 Dose: 40 mg - Objective Vital Signs: Vital Signs Temperature 98.6 F 01/06/17 08:00 Pulse Rate 78 01/06/17 08:00 Respiratory Rate 18 01/06/17 08:00 Blood Pressure 126/71 01/06/17 08:00 O2 Sat by Pulse Oximetry (%) 98 01/06/17 08:04 Neck: Yes: Supple Cardiovascular: Yes: Regular Rate and Rhythm Respiratory: Yes: Regular, CTA Bilaterally Gastrointestinal: Yes: Normal Bowel Sounds, Soft Labs: CBC, BMP 01/06/17 09:10 01/06/17 09:10 INR, PTT INR 1.43 (0.82-1.09) H D 01/04/17 17:25 Problem List - Problems (1) Dizziness and giddiness Assessment/Plan: TELEMTRY CARDIO PREVIOUS W/U UNREVEALING ORTHOSTATIC BP NOTED WITH A DROP > 20 MEDS ADJUSTED--OOB--PT DC LYRICA AND MONITOR NEURO Code(s): R42 - DIZZINESS AND GIDDINESS (2) Near syncope Assessment/Plan: ABOVE Code(s): R55 - SYNCOPE AND COLLAPSE (3) Pulmonary embolism Assessment/Plan: ON ELIQUIS CTA NEGATIVE Code(s): I26.99 - OTHER PULMONARY EMBOLISM WITHOUT ACUTE COR PULMONALE (4) Type 2 diabetes mellitus with diabetic neuropathy, unspecified Assessment/Plan: [facility] Code(s): E11.40 - TYPE 2 DIABETES MELLITUS WITH DIABETIC NEUROPATHY, UNSP Qualifiers: Diabetes mellitus long term acute care registered nurse insulin use: unspecified [facility] insulin use status Qualified Code(s): E11.40 - Type 2 diabetes mellitus with diabetic neuropathy, unspecified
--- NOTE | 2017-01-06 11:55 | CON.PULM ---
Consult Consult Specialty:: PULMONARY Referred by:: Dr. Rodriguez Reason for Consultation:: shortness of breath - History of Present Illness Chief Complaint: dizziness History of Present Illness: 81yo female with h/o HTN, DM, hyperlipidemia, CAD, h/o PE, pulmonary HTN who was admitted with dizziness and lightheadedness. Recently admitted with similar symptoms earlier this month with negative work up. She states that her dizziness occurs when she ambulates or talks for prolonged periods. Does report some chest pain and shortness of breath during these episodes but not at rest. No cough or wheezing. No fevers or chills. She denies any history of asthma or COPD, is a never smoker. Worked in insurance in an office setting. Was noted to be orthostatic - History Source History Provided By: Patient Limitations to Obtaining History: No Limitations - Past Medical History Cardio/Vascular: Yes: Pulmonary Hypertension, CAD (reported CAD), HTN, Hyperlipdemia, Aortic Insufficiency Pulmonary: Yes: Pulmonary Embolus (following ~50 years ago, and again in 2013 while hospitalzied for shingles per patient's report) Gastrointestinal: Yes: GERD Endocrine: Yes: Diabetes Mellitus, Other (mutlinodular goitre) - Past Surgical History Past Surgical History: Yes: (x5), Hysterectomy (JANINE ~ 40 years ago) - Alcohol/Substance Use Hx Alcohol Use: No History of Substance Use: reports: None - Smoking History Smoking history: Never smoked Have you smoked in the past 12 months: No Aproximately how many cigarettes per day: 0 - Social History Usual Living Arrangement: Alone (in apartment without stairs to elevator; previously Independent in ADLs, has assistance in IADLs from daughter, has both cane and Rollator which she uses intermittently) Home Medications - Allergies Allergies/Adverse Reactions: Allergies Allergy/AdvReac Type Severity Reaction Status Date / Time lactose AdvReac Severe Verified 01/04/17 16:10 - Home Medications Home Medications: Ambulatory Orders Aspirin [ASA -] 81 mg PO DAILY #0 tab.chew 12/14/11 Folic Acid - 1 mg PO DAILY 07/06/13 Atorvastatin Ca [Lipitor] 10 mg PO HS 07/27/14 Pregabalin [Lyrica -] 50 mg PO TID #90 capsule MDD 3 10/17/15 Amlodipine Besylate [Norvasc -] 10 mg PO DAILY #30 tablet 02/23/16 Glimepiride [Amaryl] 4 mg PO DAILY 08/14/16 Pantoprazole Sodium [Protonix -] 40 mg PO DAILY #30 08/19/16 Apixaban [Eliquis] 5 mg PO BID #30 tablet MDD 2 12/24/16 Family Disease History - Family Disease History Family Disease History: Diabetes: Sister, Heart Disease: Brother, CA: Father ( colon cancer), Sister Review of Systems - Review of Systems Constitutional: denies: Chills, Fever Eyes: denies: Recent Change in Vision HENT: denies: Nasal Congestion, Throat Pain Neck: denies: Stiffness, Tenderness Cardiovascular: reports: Chest Pain, Shortness of Breath. denies: Edema, Palpitations Respiratory: reports: SOB. denies: Cough, Hemoptysis, Wheezing Gastrointestinal: denies: Abdominal Pain, Nausea, Vomiting Genitourinary: denies: Dysuria, Hematuria Neurological: reports: Dizziness. denies: Headache Endocrine: denies: Unexplained Weight Gain, Unexplained Weight Loss Physical Exam Vital Sings: Vital Signs Temperature 98.6 F 01/06/17 08:00 Pulse Rate 78 01/06/17 08:00 Respiratory Rate 18 01/06/17 08:00 Blood Pressure 126/71 01/06/17 08:00 O2 Sat by Pulse Oximetry (%) 96 01/06/17 09:00 Constitutional: Yes: Calm Eyes: Yes: Conjunctiva Clear, EOM Intact HENT: Yes: Atraumatic, Normocephalic Neck: Yes: Supple, Trachea Midline Cardiovascular: Yes: Regular Rate and Rhythm Respiratory: Yes: Regular, CTA Bilaterally ...Clubbing: No Gastrointestinal: Yes: Normal Bowel Sounds, Soft. No: Tenderness Edema: No Neurological: Yes: Alert, Oriented Labs: CBC, BMP 01/06/17 09:10 01/06/17 09:10 Imaging - Results Chest X-ray: Report Reviewed, Image Reviewed Cat Scan: Report Reviewed, Image Reviewed (no infiltrates) Problem List - Problems (1) Dizziness and giddiness Code(s): R42 - DIZZINESS AND GIDDINESS (2) Orthostatic hypotension Code(s): I95.1 - ORTHOSTATIC HYPOTENSION (3) CAD (coronary artery disease) Code(s): I25.10 - ATHSCL HEART DISEASE OF [place] CORONARY ARTERY W/O ANG PCTRS (4) Diabetes mellitus Code(s): E11.9 - TYPE 2 DIABETES MELLITUS WITHOUT COMPLICATIONS Qualifiers: Diabetes mellitus type: type 2 (5) HLD (hyperlipidemia) Code(s): E78.5 - HYPERLIPIDEMIA, UNSPECIFIED (6) HTN (hypertension) Code(s): I10 - ESSENTIAL (PRIMARY) HYPERTENSION Qualifiers: (7) Pulmonary hypertension Code(s): I27.2 - OTHER SECONDARY PULMONARY HYPERTENSION Assessment/Plan Dizziness/Lightheadedness Orthostatic Hypotension CAD HTN DM - shortness of breath likely attributable to her orthostatic hypotension - no prior pulmonary history and pt never smoker, chest imaging clear, do not suspect active pulmonary process - if remains short of breath after orthostatic hypotension corrected, can get PFTs as outpt - continue anticoagulation Thank you for this consult Jake Stark MD
--- NOTE | 2017-01-06 12:09 | HOL ---
Hook-up date: 2017-01-05 09:57:00 Duration: 23:38:00 Test Indications: ARRYTHMIA Medications: [id number] QRS complexes 182 Ventricular ectopics which represent <1 % of total QRS comp. 116 Supraventricular ectopics which represent <1 % of total QRS comp. * Paced QRS complexs which represent % of total QRS comp. * % of Time Classified as Noise VENTRICULAR ECTOPY 180 Isolated 0 Bigeminal Cycles 1 Couplets 0 Runs 0 Beats in Runs * Beats LONGEST at * BPM at :: -- * Beats FASTEST at * BPM at :: -- SUPRAVENTRICULAR ECTOPY 77 Isolated 7 Couplets 4 Runs 25 Beats in Runs 11 Beats LONGEST at 163 BPM at 15:36:26 2017-01-05 11 Beats FASTEST at 163 BPM at 15:36:26 2017-01-05 HEART RATES 59 MIN at 22:02:56 2017-01-05 77 AVG 128 MAX at 09:26:36 2017-01-06 LONGEST RR 1.392 secs at 12:15:20 2017-01-05 SCANNED BY JADA RODRIGUEZ 01/06/2017 NO DIARY SUBMITTED 1. Baseline sinus rhythm with first degree avb. Avg HR 77 and range 59-128. 2. No significant pauses/bradycardia. 3. Occasional isolated PVCs and PACs. 4. Occasional brief atrial runs, likely PAT, longest being 11 beats. 5. No VT, VF, afib, aflutter. 6. No diary submitted. Confirmed by FERMÍN MODI, CONRADO ([id number]) on 01/06/2017 12:09:14 PM Referred By: Overread By: CONRADO KOVACS MD
--- NOTE | 2017-01-06 14:59 | CONSULT ---
Consult - text type - Consultation Consultation Note: NEUROLOGY CONSULTATION is greatly appreciated: This 81 yo RH woman lives with her daughter. PMH sig for HTN, DM, GERD, Chol and AFib (?). S/P JANINE-BSO. Maintained on amlodipine, pantoprazole, atorvastatin, Eliquis, pregabalin. Recently admitted for evaluation of "Weakness." Now admitted after 4-6 brief episodes of lightheadedness and "weakness" occurring when she "first starts to walk" over the last 2 months. Claims she "almost fainted the first time" and that she "had to told on and lay down." All resolve in "Less than 2 mins." On telemetry without obvious arrhythmia. Moderate orthostatic BP changes but off amlodipine. CT of head not found, but CT Angio of chest Neg for DVT. CHAPO: No head trauma. No bruits. Cor reg. NEURO: MS/Speech: Normal CN II-XII: Normal aside from fine to-and-fro head tremor Motor: Normal aside from min sustention tremor No FTN Dystaxia Sensation normal. Romberg Neg Gait: Sl shuffle IMP: 1. Non-focal exam sig for essential tremor 2. Presyncope probably due to orthostatic hypotension Suggest: Observe off Amlodipine Follow orthostatic BP's Reassess indications for Pregabalin (Lyrica) and Eliquis. Neuro f/u as out patient if symptoms recur. Thank you very much, Bassam June MD
--- NOTE | 2017-01-06 15:30 | PN ---
Progress Note, Physician Chief Complaint: less sob, no dizziness tele brief psvt resolved. History of Present Illness: 81 year old female history of pulmonary HTN, CAD, HLD, NIDDM, carotid stenosis , HTN, aortic insufficiency, PE(on Eliquis), shingles, and GERD who was admitted 01/05/17 with dizziness/lightheadedness and near syncope, always while standing or starting to walk for the past several weeks. Recently admitted with similar complaints and normal Echo and vascular study. Echocardiogram 12/20/16 nlef FCDAOV, mild AI/MR/PI Found 01/05/17 to be orthostatic by > 15 mmHg. Norvasc DCD She became sob 01/05/17 underwent CTA which was negative for PE and normal lung parenchyma. - Current Medication List Current Medications: Active Medications Acetaminophen (Tylenol -) 650 mg PO Q4H PRN PRN Reason: FEVER OR PAIN Apixaban (Eliquis -) 5 mg PO BID [facility] Last Admin: 01/06/17 09:42 Dose: 5 mg Aspirin (Asa -) 81 mg PO DAILY [facility] Last Admin: 01/06/17 09:41 Dose: 81 mg Atorvastatin Calcium (Lipitor -) 10 mg PO HS [facility] Last Admin: 01/05/17 21:36 Dose: 10 mg Folic Acid (Folic Acid -) 1 mg PO DAILY [facility] Last Admin: 01/06/17 09:42 Dose: 1 mg Glimepiride (Amaryl -) 4 mg PO DAILY@0700 [facility] Last Admin: 01/06/17 09:41 Dose: 4 mg Insulin Aspart (Novolog Vial) 0 units SQ ACHS [facility] PRN Reason: Protocol Last Admin: 01/06/17 11:56 Dose: 2 units Pantoprazole Sodium (Protonix -) 40 mg PO DAILY [facility] Last Admin: 01/06/17 09:42 Dose: 40 mg - Objective Vital Signs: Vital Signs Temperature 98.7 F 01/06/17 14:00 Pulse Rate 83 01/06/17 14:00 Respiratory Rate 18 01/06/17 14:00 Blood Pressure 122/72 01/06/17 14:00 O2 Sat by Pulse Oximetry (%) 96 01/06/17 15:21 Constitutional: Yes: No Distress Eyes: Yes: Conjunctiva Clear, EOM Intact HENT: Yes: Atraumatic, Normocephalic Neck: Yes: Trachea Midline Cardiovascular: Yes: Regular Rate and Rhythm Respiratory: Yes: Regular, CTA Bilaterally Gastrointestinal: Yes: Normal Bowel Sounds, Soft Extremities: Yes: WNL Edema: No Peripheral Pulses WNL: Yes Labs: CBC, BMP 01/06/17 09:10 01/06/17 09:10 INR, PTT INR 1.43 (0.82-1.09) H D 01/04/17 17:25 Problem List - Problems (1) Dizziness and giddiness Assessment/Plan: The patient was orthostatic by > 15 mm Hg. Titrate all BP medications to standing blood pressure. Hold amlodpine for now, follow orthostatic blood pressure. no need to repeat cardiac testing. Recheck daily orthostatics. CTA negative. ambulate off of norvasc. Code(s): R42 - DIZZINESS AND GIDDINESS
[2017-01-06] MEDS ORDERED: HEMOQUE TEST 1 EACH EACH ONE (16:48)
[2017-01-06] MEDS: ATORVASTATIN CA 10 MG TABLET (FP) PO SCH (21:07)
[2017-01-06] MEDS ORDERED: INSULIN (NOVOLOG) ASPART 100 UNITS/ML 10ML VIAL ONE ×2 (21:14→21:15)
--- NOTE | 2017-01-06 23:06 | PN ---
Progress Note, Physician Chief Complaint: ambulating with some improved bp response off bp pills - Current Medication List Current Medications: Active Medications Acetaminophen (Tylenol -) 650 mg PO Q4H PRN PRN Reason: FEVER OR PAIN Apixaban (Eliquis -) 5 mg PO BID [facility] Last Admin: 01/06/17 21:07 Dose: 5 mg Aspirin (Asa -) 81 mg PO DAILY [facility] Last Admin: 01/06/17 09:41 Dose: 81 mg Atorvastatin Calcium (Lipitor -) 10 mg PO HS [facility] Last Admin: 01/06/17 21:07 Dose: 10 mg Folic Acid (Folic Acid -) 1 mg PO DAILY [facility] Last Admin: 01/06/17 09:42 Dose: 1 mg Glimepiride (Amaryl -) 4 mg PO DAILY@0700 [facility] Last Admin: 01/06/17 09:41 Dose: 4 mg Insulin Aspart (Novolog Vial) 0 units SQ ACHS [facility] PRN Reason: Protocol Last Admin: 01/06/17 21:17 Dose: 5 units Pantoprazole Sodium (Protonix -) 40 mg PO DAILY [facility] Last Admin: 01/06/17 09:42 Dose: 40 mg - Objective Vital Signs: Vital Signs Temperature 98.1 F 01/06/17 16:55 Pulse Rate 74 01/06/17 22:00 Respiratory Rate 16 01/06/17 22:00 Blood Pressure 106/59 01/06/17 22:00 O2 Sat by Pulse Oximetry (%) 96 01/06/17 20:45 Constitutional: Yes: Calm Eyes: Yes: EOM Intact HENT: Yes: Normocephalic Neck: Yes: Trachea Midline Cardiovascular: Yes: Regular Rate and Rhythm Respiratory: Yes: CTA Bilaterally Gastrointestinal: Yes: Normal Bowel Sounds ...Rectal Exam: Yes: Deferred Genitourinary: Yes: WNL Breast(s): Yes: WNL Musculoskeletal: Yes: WNL Extremities: Yes: WNL Edema: No Peripheral Pulses WNL: Yes Integumentary: Yes: WNL Neurological: Yes: Alert, Oriented ...Motor Strength: WNL Psychiatric: Yes: Alert, Oriented Labs: CBC, BMP 01/06/17 09:10 01/06/17 09:10 INR, PTT INR 1.43 (0.82-1.09) H D 01/04/17 17:25 Problem List - Problems (1) Dizziness and giddiness Code(s): R42 - DIZZINESS AND GIDDINESS (2) Exertional dyspnea Code(s): R06.09 - OTHER FORMS OF DYSPNEA (3) Hoarseness Code(s): R49.0 - DYSPHONIA (4) Near syncope Code(s): R55 - SYNCOPE AND COLLAPSE (5) Type 2 diabetes mellitus with diabetic neuropathy, unspecified Code(s): E11.40 - TYPE 2 DIABETES MELLITUS WITH DIABETIC NEUROPATHY, UNSP Qualifiers: Diabetes mellitus detention insulin 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 Qualified Code(s): E11.40 - Type 2 diabetes mellitus with diabetic neuropathy, unspecified (6) Hypothyroid Code(s): E03.9 - HYPOTHYROIDISM, UNSPECIFIED Assessment/Plan Current Active Problems Abnormal CT scan (Acute) Dizziness and giddiness (Acute) Exertional dyspnea (Acute) Hoarseness (Acute) Hypothyroid (Acute) Near syncope (Acute) Orthostatic hypotension (Acute) Pulmonary embolism (Acute) Pulmonary hypertension (Acute) Reflux laryngitis (Acute) Type 2 diabetes mellitus with diabetic neuropathy, unspecified (Acute) Abnormal Lab Results 01/06/17 01/06/17 09:10 09:10 WBC 3.9 L MCV 74.6 L MCH 23.9 L RDW 16.1 H Anion Gap 7 L Random Glucose 169 H D Laboratory Results - last 24 hr 01/05/17 01/05/17 01/06/17 16:51 21:33 05:15 WBC RBC Hgb Hct MCV MCH MCHC RDW Plt Count MPV Neutrophils % Lymphocytes % Monocytes % Eosinophils % Basophils % Sodium Potassium Chloride Carbon Dioxide Anion Gap BUN Creatinine Creat Clearance w eGFR POC Glucometer 244.74584 161.86789 Random Glucose Calcium Total Bilirubin AST ALT Alkaline Phosphatase Total Protein Albumin Vitamin B12 698 01/06/17 01/06/17 01/06/17 06:48 09:10 09:10 WBC 3.9 L RBC 4.92 Hgb 11.7 Hct 36.7 MCV 74.6 L MCH 23.9 L MCHC 32.0 RDW 16.1 H Plt Count 274 MPV 8.6 Neutrophils % 52.8 Lymphocytes % 33.3 Monocytes % 8.5 Eosinophils % 3.8 Basophils % 1.6 Sodium 139 Potassium 3.7 Chloride 107 Carbon Dioxide 25 Anion Gap 7 L BUN 15 Creatinine 1.0 Creat Clearance w eGFR 52.95 POC Glucometer 155.53045 Random Glucose 169 H D Calcium 9.0 Total Bilirubin 0.6 AST 19 ALT 20 Alkaline Phosphatase 89 Total Protein 7.8 Albumin 3.6 Vitamin B12 01/06/17 01/06/17 11:52 16:50 WBC RBC Hgb Hct MCV MCH MCHC RDW Plt Count MPV Neutrophils % Lymphocytes % Monocytes % Eosinophils % Basophils % Sodium Potassium Chloride Carbon Dioxide Anion Gap BUN Creatinine Creat Clearance w eGFR POC Glucometer [phone] Random Glucose Calcium Total Bilirubin AST ALT Alkaline Phosphatase Total Protein Albumin Vitamin B12 plan: stable bp response off amlodipine ck tsh free t4 ck am cortisol ck am acth
[2017-01-07] MEDS: GLIMEPIRIDE 4 MG TABLET (FP) PO SCH (06:19)
[2017-01-07] MEDS: INSULIN (NOVOLOG) ASPART 100 UNITS/ML 10ML VIAL SQ SCH ×3 (06:20→17:57)
[2017-01-07 07:03] LABS: BASOPHIL 0.7 % (0-2.0); EOSINOPHIL 3.3 % (0-4.5); MCH 24.4 pg (25.7-33.7); MCHC 32.5 g/dl (32.0-36.0); MEAN PLT VOLUME 8.9 fl (7.5-11.1); NEUTROPHILS 56.1 % (42.8-82.8); PLATELET COUNT 266 K/MM3 (134-434); RDW 16.1 % (11.6-15.6); WHITE BLOOD COUNT 4.5 K/mm3 (4.0-10.0)
--- NOTE | 2017-01-07 08:33 | DS ---
Physical Examination Vital Signs: Vital Signs Temperature 98.2 F 01/07/17 06:00 Pulse Rate 77 01/07/17 06:00 Respiratory Rate 18 01/07/17 06:00 Blood Pressure 124/71 01/07/17 06:00 O2 Sat by Pulse Oximetry (%) 97 01/07/17 04:53 Findings/Remarks: no complaints Cardiovascular: Yes: Regular Rate and Rhythm Respiratory: Yes: Regular, CTA Bilaterally Gastrointestinal: Yes: Normal Bowel Sounds, Soft Neurological: Yes: Alert, Oriented Labs: CBC, BMP 01/07/17 06:00 01/06/17 09:10 Discharge Summary Reason For Visit: NEAR SYNCOPE, DIZZINESS Current Active Problems Abnormal CT scan (Acute) Dizziness and giddiness (Acute) Exertional dyspnea (Acute) Hoarseness (Acute) Hypothyroid (Acute) Near syncope (Acute) Orthostatic hypotension (Acute) Pulmonary embolism (Acute) Pulmonary hypertension (Acute) Reflux laryngitis (Acute) Type 2 diabetes mellitus with diabetic neuropathy, unspecified (Acute) Hospital Course: History of Present Illness: 81 year old female with significant medical hx of pulmonary HTN, CAD, HLD, NIDDM , carotid stenosis , HTN, aortic insufficiency, PE(on Eliquis), shingles, and GERD who is who has been sent to the ED by PCP with script for admission for dizziness and pre-syncope. Patient complains of dizziness that she characterizes as lightheadedness; she states that she feels as if shes going to pass out. The patient notes that her dizzy spells worsen when she stands up. Patient also has a secondary complaint of generalized weakness. Denies any visual changes, nausea, vomiting, palpitations, chest pain, or shortness of breath. Patient was admitted earlier this month on 12/19-12/25 for complaint of weakness and received a vascular study that was negative for DVT. - Past Medical History Cardiovascular: Yes: Pulmonary Hypertension, CAD (reported CAD), HTN, Hyperlipdemia, Aortic Insufficiency Pulmonary: Yes: Pulmonary Embolus (following ~50 years ago, and again in 2013 while hospitalzied for shingles per patient's report) Gastrointestinal: Yes: GERD Endocrine: Yes: Diabetes Mellitus, Other (mutlinodular goitre) - Past Surgical History Past Surgical History: Yes: (x5), Hysterectomy (JANINE ~ 40 years ago) Problems (1) Dizziness and giddiness Assessment/Plan: TELEMTRY CARDIO PREVIOUS W/U UNREVEALING ORTHOSTATIC BP NOTED WITH A DROP > 20 MEDS ADJUSTED--OOB--PT DC LYRICA AND MONITOR NEURO Code(s): R42 - DIZZINESS AND GIDDINESS (2) Near syncope Assessment/Plan: ABOVE Code(s): R55 - SYNCOPE AND COLLAPSE (3) Pulmonary embolism Assessment/Plan: ON ELIQUIS CTA NEGATIVE Code(s): I26.99 - OTHER PULMONARY EMBOLISM WITHOUT ACUTE COR PULMONALE (4) Type 2 diabetes mellitus with diabetic neuropathy, unspecified Assessment/Plan: BGM ENDO Code(s): E11.40 - TYPE 2 DIABETES MELLITUS WITH DIABETIC NEUROPATHY, UNSP Qualifiers: 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 insulin use status Qualified Code(s): E11.40 - Type 2 diabetes mellitus with diabetic neuropathy, unspecified Condition: Improved - Instructions Referrals: Maldonado Whaley MD [Primary Care Provider] - 1 Week Disposition: HOME - Home Medications Comprehensive Discharge Medication List: Ambulatory Orders Aspirin [ASA -] 81 mg PO DAILY #0 tab.chew 12/14/11 Folic Acid - 1 mg PO DAILY 07/06/13 Atorvastatin Ca [Lipitor] 10 mg PO HS 07/27/14 Glimepiride [Amaryl] 4 mg PO DAILY 08/14/16 Pantoprazole Sodium [Protonix -] 40 mg PO DAILY #30 08/19/16 Apixaban [Eliquis] 5 mg PO BID #30 tablet MDD 2 12/24/16
[2017-01-07] MEDS: APIXABAN 5 MG TABLET PO SCH (09:35)
[2017-01-07] MEDS: FOLIC ACID 1 MG TABLET (FP) PO SCH (09:35)
[2017-01-07] MEDS: ASPIRIN 81 MG CHEWABLE TABLETS PO SCH (09:35)
[2017-01-07] MEDS: PANTOPRAZOLE 40 MG TABLET (FP) PO SCH (09:35)
--- NOTE | 2017-01-07 10:11 | PN ---
Progress Note (short form) - Note Progress Note: PULMONARY VSS ANICTERIC CLEAR BREATH SOUNDS S1S2 BS+ SOFT NO EDEMA LABS/MEDS/NOTES REVIEWED Assessment/Plan Dizziness/Lightheadedness Orthostatic Hypotension CAD HTN DM APPEARS STABLE WITHOUT FURTHER COMPLAINTS GREE WITH DISCHARGE PLANNING Silviano VILLARREAL MD
[2017-01-07] MEDS ORDERED: INSULIN (NOVOLOG) ASPART 100 UNITS/ML 10ML VIAL ONE ×2 (11:23→12:47)
--- NOTE | 2017-01-07 13:20 | PN ---
Progress Note (short form) - Note Progress Note: NEUROLOGY FOLLOW-UP: Events reviewed, patient examined. No further episodes of positional lightheadedness. BP's are oin 120/70 range OFF antihypertensive meds. Patient awaiting discharge. Neurological exam remains normal. IMP: Normal neurological exam Orthostatic hypotension. Improved off BP Meds. Suggest: Patient has a BP cuff at home and will follow her BP's and report to her primary MD. Thank you very much, Bassam June MD
[2017-01-07 14:17] VITALS: BP 117/70; PULSE 88; TEMP 98.4
--- NOTE | 2017-01-07 15:09 | PN ---
Progress Note, Physician Chief Complaint: no complaints tele negative for events History of Present Illness: 81 year old female history of pulmonary HTN, CAD, HLD, NIDDM, carotid stenosis , HTN, aortic insufficiency, PE(on Eliquis), shingles, and GERD who was admitted 01/05/17 with dizziness/lightheadedness and near syncope, always while standing or starting to walk for the past several weeks. Recently admitted with similar complaints and normal Echo and vascular study. Echocardiogram 12/20/16 nlef FCDAOV, mild AI/MR/PI Found 01/05/17 to be orthostatic by > 15 mmHg. Norvasc DCD She became sob 01/05/17 underwent CTA which was negative for PE and normal lung parenchyma. - Current Medication List Current Medications: Active Medications Acetaminophen (Tylenol -) 650 mg PO Q4H PRN PRN Reason: FEVER OR PAIN Apixaban (Eliquis -) 5 mg PO BID [facility] Last Admin: 01/07/17 09:35 Dose: 5 mg Aspirin (Asa -) 81 mg PO DAILY [facility] Last Admin: 01/07/17 09:35 Dose: 81 mg Atorvastatin Calcium (Lipitor -) 10 mg PO HS [facility] Last Admin: 01/06/17 21:07 Dose: 10 mg Folic Acid (Folic Acid -) 1 mg PO DAILY [facility] Last Admin: 01/07/17 09:35 Dose: 1 mg Glimepiride (Amaryl -) 4 mg PO DAILY@0700 [facility] Last Admin: 01/07/17 06:19 Dose: 4 mg Insulin Aspart (Novolog Vial) 0 units SQ ACHS [facility] PRN Reason: Protocol Last Admin: 01/07/17 12:09 Dose: 2 units Pantoprazole Sodium (Protonix -) 40 mg PO DAILY [facility] Last Admin: 01/07/17 09:35 Dose: 40 mg - Objective Vital Signs: Vital Signs Temperature 98.4 F 01/07/17 14:14 Pulse Rate 88 01/07/17 14:14 Respiratory Rate 18 01/07/17 14:14 Blood Pressure 117/70 01/07/17 14:14 O2 Sat by Pulse Oximetry (%) 97 01/07/17 10:00 Constitutional: Yes: No Distress, Calm Eyes: Yes: Conjunctiva Clear, EOM Intact HENT: Yes: Atraumatic, Normocephalic Neck: Yes: Trachea Midline Cardiovascular: Yes: Regular Rate and Rhythm Respiratory: Yes: CTA Bilaterally Gastrointestinal: Yes: Normal Bowel Sounds, Soft Extremities: Yes: WNL Edema: Yes Labs: CBC, BMP 01/07/17 06:00 01/06/17 09:10 INR, PTT INR 1.43 (0.82-1.09) H D 01/04/17 17:25 Problem List - Problems (1) Dizziness and giddiness Assessment/Plan: The patient was orthostatic by > 15 mm Hg. Titrate all BP medications to standing blood pressure. Hold amlodpine for now, follow orthostatic blood pressure. no need to repeat cardiac testing. CTA negative. stable cv status. Code(s): R42 - DIZZINESS AND GIDDINESS
== END 2017-01-07 17:54 | disposition home or self-care (01) | DRG 312 ==
LOC: JER 16:05 → JERBED 19:42 → J2W 01-05 00:26 → OBSVTOIN 01-05 17:10 → J4S 01-07 04:33
PROVIDERS: ADMIT Family Medicine; ATTEND Family Medicine
DX: R55 Syncope and collapse (principal); I47.1 Supraventricular tachycardia; R42 Dizziness and giddiness; E11.40 Type 2 diabetes mellitus with diabetic neuropathy, unspecified; I10 Essential (primary) hypertension; E78.5 Hyperlipidemia, unspecified; K21.9 Gastro-esophageal reflux disease without esophagitis; I25.10 Atherosclerotic heart disease of native coronary artery without angina pectoris; I95.1 Orthostatic hypotension; E03.9 Hypothyroidism, unspecified; I27.2 Other secondary pulmonary hypertension
CPT/HCPCS: 36415; 71010-TC; 71275-TC; 80053; 81003; 81015; 82024; 82533; 82550; 82553; 82607; 84443; 84484; 85025; 85610; 86850; 86900; 86901; 87086; 93005; 93010; 93225; 93226; 97116-GP; 97161-GP; 97164-GP; 99285-25; G0378

== ENCOUNTER 2018-07-03 13:16 | Observation (INO) | payer BC, OTHER ==
--- NOTE | 2018-07-03 13:23 | PDOC ---
Rapid Medical Evaluation Time Seen by Provider: 07/03/18 13:18 Medical Evaluation: Allergies Allergy/AdvReac Type Severity Reaction Status Date / Time lactose AdvReac Severe Verified 01/04/17 16:10 07/03/18 13:18 Pt presents to the ED for chest pain and R upper back pain since this morning. Also admits to vomiting x1 and back pain. Pt states she did not take her BP meds this morning. Pt did take 325mg of aspirin this morning. Exam: Lungs CTAB, RRR, S1S2 present, (-) m/r/g. BP 212/106 Orders: Labs, EKG, IV, Cardiac monitoring Pt to proceed to the ED for further evaluation Discharge Disposition - Diagnosis Chest pain - Referrals Referrals: Maldonado Whaley MD [Primary Care Provider] - - Patient Instructions - Post Discharge Activity
[2018-07-03 14:30] LABS: BASO % 1.7 % (0-2.0); EOS % 3.2 % (0-4.5); HEMATOCRIT 36.8 % (32.4-45.2); HEMOGLOBIN 11.8 GM/dL (10.7-15.3); LYMPH % 29.5 % (8-40); MCH 24.6 pg (25.7-33.7); MCHC 32.1 g/dl (32.0-36.0); MEAN CELL VOLUME 76.6 fl (80-96); MEAN PLT VOLUME 8.7 fl (7.5-11.1); MONO % 8.2 % (3.8-10.2); NEUT % 57.4 % (42.8-82.8); PLATELET COUNT 242 K/MM3 (134-434); RDW 15.3 % (11.6-15.6); WHITE BLOOD COUNT 3.3 K/mm3 (4.0-10.0)
--- NOTE | 2018-07-03 14:31 | PDOC ---
History of Present Illness - General History Source: Patient Exam Limitations: No Limitations - History of Present Illness Initial Comments: 07/03/18 14:48 The patient is a 83 year old female with a significant past medical history of hypertension, CAD, PE, chronic SOB,aortic insufficiency, carotid stenosis and diabetes who presents to the emergency department with chest pain since about 2am this morning. The patient reports that her chest pain is right sided and radiates to her right back. She describes her chest pain as a sharp and constant pain. She reports some associated nausea with her chest pain. She states that her chest pain is worsened with walking(Prior stress test in 2016). The patient reports that she took a 325mg aspirin earlier with no apparent relief. She denies taking any of her blood pressure medication . the patient also reports some right foot pain, described as a shooting pain. She denies any other symptoms. She denies any fever, chills, nausea, vomiting, diarrhea, constipation or urinary symptoms. She denies any headache, dizziness, numbness, weakness or tingling sensations. The patient denies any other complaints.It is noted that the patient has a family history of MO (mother at age 66). Documentation prepared by Joanne Strong, acting as biomedical manager for Antonieta Bonds MD. <Joanne Strong - Last Filed: 07/03/18 14:48> - General History Source: Patient Exam Limitations: No Limitations <Antonieta Bonds - Last Filed: 07/03/18 18:56> - General Chief Complaint: Chest Pain Stated Complaint: Pain Time Seen by Provider: 07/03/18 13:18 Past History <Joanne Strong - Last Filed: 07/03/18 14:48> - Past Medical History Anemia: Yes Cardiac Disorders: Yes Diabetes: Yes HTN: Yes Hypercholesterolemia: Yes - Immunization History Immunization Up to Date: Yes - Suicide/Smoking/Psychosocial Hx Smoking Status: No Smoking History: Never smoked Have you smoked in the past 12 months: No Number of Cigarettes Smoked Daily: 0 Hx Alcohol Use: No Drug/Substance Use Hx: No Substance Use Type: None Hx Substance Use Treatment: No <Antonieta Bonds - Last Filed: 07/03/18 18:56> - Past Medical History Allergies/Adverse Reactions: Allergies Allergy/AdvReac Type Severity Reaction Status Date / Time lactose AdvReac Severe Verified 01/04/17 16:10 Home Medications: Ambulatory Orders Aspirin [ASA -] 81 mg PO DAILY #0 tab.chew 12/14/11 Folic Acid - 1 mg PO DAILY 07/06/13 Atorvastatin Ca [Lipitor] 10 mg PO HS 07/27/14 Glimepiride [Amaryl] 4 mg PO DAILY 08/14/16 Pantoprazole Sodium [Protonix -] 40 mg PO DAILY #30 08/19/16 Apixaban [Eliquis] 5 mg PO BID #30 tablet MDD 2 12/24/16 Review of Systems - Review of Systems Able to Perform ROS?: Yes Comments:: 07/03/18 14:50 GENERAL/CONSTITUTIONAL: No fever or chills. No weakness. HEAD, EYES, EARS, NOSE AND THROAT: No change in vision. No ear pain or discharge. No sore throat. CARDIOVASCULAR: (+)chest pain, shortness of breath. RESPIRATORY: No cough, wheezing, or hemoptysis. GASTROINTESTINAL: No nausea, vomiting, diarrhea or constipation. GENITOURINARY: No dysuria, frequency, or change in urination. MUSCULOSKELETAL: No joint or muscle swelling or pain. No neck or back pain. SKIN: No rash NEUROLOGIC: No headache, vertigo, loss of consciousness, or change in strength/ sensation. ENDOCRINE: No increased thirst. No abnormal weight change. HEMATOLOGIC/LYMPHATIC: No anemia, easy bleeding, or history of blood clots. ALLERGIC/IMMUNOLOGIC: No hives or skin allergy. <Joanne Strong - Last Filed: 07/03/18 14:48> *Physical Exam - Vital Signs Last Vital Signs Temp Pulse Resp BP Pulse Ox 97.7 F 89 20 214/106 H 99 07/03/18 13:17 07/03/18 13:17 07/03/18 13:17 07/03/18 13:17 07/03/18 13:17 <Joanne Strong - Last Filed: 07/03/18 14:48> - Vital Signs Last Vital Signs Temp Pulse Resp BP Pulse Ox 97.7 F 89 20 214/106 H 99 07/03/18 13:17 07/03/18 13:17 07/03/18 13:17 07/03/18 13:17 07/03/18 13:17 - Physical Exam Comments: 07/03/18 14:47 pt awake alert lungs clear bilaterally heart rrr no mrg abd soft nt nd. ext wwp no calf edema. no calf tendernss. pulses symmetric.nuero alert oriented x 3. moves all four ext. facies symmetric. speech clear. gait normal. <Antonieta Bonds - Last Filed: 07/03/18 18:56> Moderate Sedation - Procedure Monitoring Vital Signs: Procedure Monitoring Vital Signs Temperature 97.7 F 07/03/18 13:17 Pulse Rate 89 07/03/18 13:17 Respiratory Rate 20 07/03/18 13:17 Blood Pressure 214/106 H 07/03/18 13:17 O2 Sat by Pulse Oximetry (%) 99 07/03/18 13:17 <Joanne Strong - Last Filed: 07/03/18 14:48> - Procedure Monitoring Vital Signs: Procedure Monitoring Vital Signs Temperature 97.7 F 07/03/18 13:17 Pulse Rate 89 07/03/18 13:17 Respiratory Rate 07/03/18 13:17 Blood Pressure 214/106 H 07/03/18 13:17 O2 Sat by Pulse Oximetry (%) 99 07/03/18 13:17 <Antonieta Bonds - Last Filed: 07/03/18 18:56> Heart Score/ECG Review #1 General ECG Interpretation: Sinus Rhythm, Normal Rate, Normal Intervals, No acute ischemic changes Compared to previous ECG there are: Other (occasional pac.) <Antonieta Bonds - Last Filed: 07/03/18 18:56> ED Treatment Course - LABORATORY CBC & Chemistry Diagram: 07/03/18 13:58 07/03/18 13:58 - ADDITIONAL ORDERS Additional order review: Laboratory Results 07/03/18 13:58 PT with INR 14.10 H INR 1.19 H 07/03/18 13:58 RBC 4.80 MCV 76.6 L MCHC 32.1 RDW 15.3 MPV 8.7 Neutrophils % 57.4 Lymphocytes % 29.5 Monocytes % 8.2 Eosinophils % 3.2 Basophils % 1.7 <Joanne Strong - Last Filed: 07/03/18 14:48> - LABORATORY CBC & Chemistry Diagram: 07/03/18 13:58 07/03/18 13:58 <Antonieta Bonds - Last Filed: 07/03/18 18:56> Medical Decision Making - Medical Decision Making 07/03/18 14:26 83 yo F with h/o DM HTN, prior blood clots on eloquis ( but stopped taking due to cost ) here with /co chest pain radiating to her right shoulder and back. pt states pain started at 2 am. now persistant. describes as sharp pain. not pleuritic. no h/o similar pain. has had a stress test unsure how long ago. denies leg pain or swelling. on exam pt awake alert lungs clear bilaterally heart rrr no mrg abd soft nt nd. ext wwp no calf edema. no calf tendernss. pulses symmetric. differential diagnosis : PE, dissection, pna, angina. infection.. plan ekg trop asa before arrival. bp control. ct angio labs. will likely require admission/ obs to tele r/o acs. 07/03/18 16:16 pt was educated regarding risk and benefit of ct contrast. very high risk of PE , therefore risk of contrast is outweighed by high prob of PE prior clot, not taking antiocoagulatn. CR is 1.2 07/03/18 18:[address] a negative for PE will admit to tele for observation r/ o MO. bp control. d/w dr escobar who stated admit to [facility] or [facility], however after 5 pm . will d/w hospitalist. microblog sent awaiting callback. 07/03/18 18:56 d/w dr thompson, who will admit pt. requesting dr luong cardiology consult. <Antonieta Bonds - Last Filed: 07/03/18 18:56> *DC/Admit/Observation/Transfer - Attestations Scribe Attestion: 07/03/18 14:54 Documentation prepared by Joanne Strong, acting as biomedical manager for Antonieta Bonds MD. <Joanne Strong - Last Filed: 07/03/18 14:48> - Discharge Dispostion Decision to Admit order: Yes <Antonieta Bonds - Last Filed: 07/03/18 18:56> Diagnosis at time of Disposition: Chest pain, Hypertension - Referrals Referrals: Maldonado Escobar MD [Primary Care Provider] - - Patient Instructions - Post Discharge Activity
[2018-07-03] MEDS ORDERED: NITROGLYCERIN SUBLINGUAL 1/150 0.4 MG TAB SL ONE (14:35)
[2018-07-03 14:39] LABS: INR 1.19 (0.83-1.09); PROTHROMBIN TIME (PATIENT) 14.1 SEC (9.7-13.0)
[2018-07-03 14:54] LABS: ALBUMIN 3.8 g/dl (3.4-5.0); ALK PHOS 99 U/L (45-117); ANION GAP 7 MMOL/L (8-16); BILIRUBIN,TOTAL 0.3 mg/dL (0.2-1); BLOOD UREA NITROGEN 12 mg/dL (7-18); CALCIUM 8.9 mg/dL (8.5-10.1); CHLORIDE 106 mmol/L (98-107); CO2 26 mmol/L (21-32); CREATININE 1.2 mg/dL (0.55-1.3); GLUCOSE,RANDOM 226 mg/dL (74-106); MAGNESIUM 2.1 mg/dL (1.8-2.4); POTASSIUM 4.1 mmol/L (3.5-5.1); SGOT/AST 15 U/L (15-37); SGPT/ALT 15 U/L (13-61); SODIUM 139 mmol/L (136-145); TOT PROT 8.1 g/dl (6.4-8.2)
[2018-07-03] MEDS ORDERED: ACETAMINOPHEN INJECTION 100 ML IVPB ONE (18:48)
[2018-07-03] MEDS ORDERED: ACETAMINOPHEN 1000 MG/100 ML VIAL (NON FORMULARY) IVPB ONE (18:48)
--- NOTE | 2018-07-03 19:34 | HP ---
Admitting History and Physical - Primary Care Physician PCP: Gwyn Chen - Admission History of Present Illness: 83 year old female with a significant past medical history of hypertension, CAD , PE, chronic SOB,aortic insufficiency, carotid stenosis and diabetes who presents to the emergency department with chest pain since about 2am this morning. The patient reports that her chest pain is right sided and radiates to her right back. She describes her chest pain as a sharp and constant pain. She reports some associated nausea with her chest pain. She states that her chest pain is worsened with walking(Prior stress test in 2016). The patient reports that she took a 325mg aspirin earlier with no apparent relief. She denies taking any of her blood pressure medication . the patient also reports some right foot pain, described as a shooting pain. She denies any other symptoms. She denies any fever, chills, nausea, vomiting, diarrhea, constipation or urinary symptoms. She denies any headache, dizziness, numbness, weakness or tingling sensations. The patient denies any other complaints.It is noted that the patient has a family history of [place] (mother at age 66). - Past Medical History Cardiovascular: Yes: Pulmonary Hypertension, CAD (reported CAD), HTN, Hyperlipdemia, Aortic Insufficiency Pulmonary: Yes: Pulmonary Embolus (following ~50 years ago, and again in 2013 while hospitalzied for shingles per patient's report) Gastrointestinal: Yes: GERD Endocrine: Yes: Diabetes Mellitus, Other (mutlinodular goitre) - Past Surgical History Past Surgical History: Yes: (x5), Hysterectomy (JANINE ~ 40 years ago) - Smoking History Smoking history: Never smoked Have you smoked in the past 12 months: No Aproximately how many cigarettes per day: 0 - Alcohol/Substance Use Hx Alcohol Use: No History of Substance Use: reports: None Home Medications - Allergies Allergies/Adverse Reactions: Allergies Allergy/AdvReac Type Severity Reaction Status Date / Time lactose AdvReac Severe Verified 07/03/18 22:32 - Home Medications Home Medications: Ambulatory Orders Aspirin [ASA -] 81 mg PO DAILY #0 tab.chew 12/14/11 Folic Acid - 1 mg PO DAILY 07/06/13 Atorvastatin Ca [Lipitor] 10 mg PO HS 07/27/14 Glimepiride [Amaryl] 4 mg PO DAILY 08/14/16 Pantoprazole Sodium [Protonix -] 40 mg PO DAILY #30 08/19/16 Apixaban [Eliquis] 5 mg PO BID #30 tablet MDD 2 12/24/16 Family Disease History - Family Disease History Family Disease History: Diabetes: Sister, Heart Disease: Brother, [place]: Father ( colon cancer), Sister Physical Examination Vital Signs: Vital Signs Temperature 97.7 F 07/03/18 13:17 Pulse Rate 89 07/03/18 13:17 Respiratory Rate 20 07/03/18 13:17 Blood Pressure 214/106 H 07/03/18 13:17 O2 Sat by Pulse Oximetry (%) 99 07/03/18 13:17 Constitutional: Yes: No Distress HENT: Yes: Atraumatic Neck: Yes: Supple Cardiovascular: Yes: Regular Rate and Rhythm Respiratory: Yes: CTA Bilaterally Gastrointestinal: Yes: Normal Bowel Sounds Extremities: Yes: WNL Labs: CBC, BMP 07/03/18 13:58 07/03/18 13:58 Problem List - Problems (1) Chest pain Assessment/Plan: tele monitoring fu cardiac enzymes cardiology consult Code(s): R07.9 - CHEST PAIN, UNSPECIFIED (2) HTN (hypertension) Assessment/Plan: continue home meds monitor bp Code(s): I10 - ESSENTIAL (PRIMARY) HYPERTENSION Qualifiers: (3) CAD (coronary artery disease) Code(s): I25.10 - ATHSCL HEART DISEASE OF [place] CORONARY ARTERY W/O ANG PCTRS (4) Diabetes mellitus Assessment/Plan: continue oral hypoglycemic monitor bgms if needed will put her on insulin Code(s): E11.9 - TYPE 2 DIABETES MELLITUS WITHOUT COMPLICATIONS (5) HLD (hyperlipidemia) Assessment/Plan: continue lipitor Code(s): E78.5 - HYPERLIPIDEMIA, UNSPECIFIED Assessment/Plan Laboratory Tests 07/03/18 07/03/18 07/03/18 13:58 13:58 13:58 WBC 3.3 L RBC 4.80 Hgb 11.8 Hct 36.8 MCV 76.6 L MCH 24.6 L MCHC 32.1 RDW 15.3 Plt Count 242 MPV 8.7 Absolute Neuts (auto) 1.9 Neutrophils % 57.4 Lymphocytes % 29.5 Monocytes % 8.2 Eosinophils % 3.2 Basophils % 1.7 Nucleated RBC % 0 PT with INR 14.10 H INR 1.19 H Sodium 139 Potassium 4.1 Chloride 106 Carbon Dioxide 26 Anion Gap 7 L BUN 12 Creatinine 1.2 Creat Clearance w eGFR 42.70 Random Glucose 226 H Calcium 8.9 Magnesium 2.1 Total Bilirubin 0.3 AST 15 ALT 15 Alkaline Phosphatase 99 Creatine Kinase 175 Creatine Kinase Index 0.9 CK-MB (CK-2) 1.6 Troponin I < 0.02 Total Protein 8.1 Albumin 3.8
[2018-07-03] MEDS ORDERED: HEPARIN NA (PORCINE) 5,000 UNITS/ML 1ML VIAL ONE (22:24)
[2018-07-03] MEDS ORDERED: ATORVASTATIN CA 10 MG TABLET (FP) ONE ×2 (22:24→22:25)
[2018-07-03] MEDS: HEPARIN NA (PORCINE) 5,000 UNITS/ML 1ML VIAL SQ SCH (22:30)
[2018-07-03] MEDS: ATORVASTATIN CA 10 MG TABLET (FP) PO SCH (22:31)
[2018-07-04] MEDS: GLIMEPIRIDE 4 MG TABLET (FP) PO SCH (07:04)
--- NOTE | 2018-07-04 09:28 | HP ---
Admitting History and Physical - Admission History of Present Illness: 83 year old female with a significant past medical history of hypertension, CAD , PE, chronic SOB,aortic insufficiency, carotid stenosis and diabetes who presents to the emergency department with chest pain since about 2am this morning. The patient reports that her chest pain is right sided and radiates to her right back. She describes her chest pain as a sharp and constant pain. She reports some associated nausea with her chest pain. She states that her chest pain is worsened with walking(Prior stress test in 2016). The patient reports that she took a 325mg aspirin earlier with no apparent relief. She denies taking any of her blood pressure medication . the patient also reports some right foot pain, described as a shooting pain. She denies any other symptoms. She denies any fever, chills, nausea, vomiting, diarrhea, constipation or urinary symptoms. She denies any headache, dizziness, numbness, weakness or tingling sensations. The patient denies any other complaints.It is noted that the patient has a family history of [place] (mother at age 66). - Past Medical History Cardiovascular: Yes: Pulmonary Hypertension, CAD (reported CAD), HTN, Hyperlipdemia, Aortic Insufficiency Pulmonary: Yes: Pulmonary Embolus (following ~50 years ago, and again in 2013 while hospitalzied for shingles per patient's report) Gastrointestinal: Yes: GERD Endocrine: Yes: Diabetes Mellitus, Other (mutlinodular goitre) - Past Surgical History Past Surgical History: Yes: (x5), Hysterectomy (JANINE ~ 40 years ago) - Smoking History Smoking history: Never smoked Have you smoked in the past 12 months: No Aproximately how many cigarettes per day: 0 - Alcohol/Substance Use Hx Alcohol Use: No History of Substance Use: reports: None Home Medications - Allergies Allergies/Adverse Reactions: Allergies Allergy/AdvReac Type Severity Reaction Status Date / Time lactose AdvReac Severe Verified 07/03/18 22:32 - Home Medications Home Medications: Ambulatory Orders Aspirin [ASA -] 81 mg PO DAILY #0 tab.chew 12/14/11 Folic Acid - 1 mg PO DAILY 07/06/13 Atorvastatin Ca [Lipitor] 10 mg PO HS 07/27/14 Glimepiride [Amaryl] 4 mg PO DAILY 08/14/16 Pantoprazole Sodium [Protonix -] 40 mg PO DAILY #30 08/19/16 Apixaban [Eliquis] 5 mg PO BID #30 tablet MDD 2 12/24/16 Family Disease History - Family Disease History Family Disease History: Diabetes: Sister, Heart Disease: Brother, [place]: Father ( colon cancer), Sister Review of Systems - Review of Systems Cardiovascular: reports: Chest Pain (right side) Respiratory: reports: SOB on Exertion Gastrointestinal: denies: Abdominal Pain Genitourinary: reports: No Symptoms Musculoskeletal: reports: Back Pain (rt scapular) Neurological: reports: No Symptoms Physical Examination Vital Signs: Vital Signs Temperature 98.3 F 07/04/18 08:22 Pulse Rate 109 H 07/04/18 08:22 Respiratory Rate 18 07/04/18 08:22 Blood Pressure 199/102 H 07/04/18 08:22 O2 Sat by Pulse Oximetry (%) 98 07/04/18 08:22 Cardiovascular: Yes: Regular Rate and Rhythm Respiratory: Yes: Regular, CTA Bilaterally Gastrointestinal: Yes: Normal Bowel Sounds, Soft. No: Tenderness Labs: CBC, BMP 07/03/18 13:58 07/03/18 13:58 Problem List - Problems (1) Back pain Assessment/Plan: cta no pe maybe muscular pulm and cardio tramadol Code(s): M54.9 - DORSALGIA, UNSPECIFIED (2) Chest pain Assessment/Plan: -as above ce negative Code(s): R07.9 - CHEST PAIN, UNSPECIFIED (3) HTN (hypertension) Assessment/Plan: -monitor Code(s): I10 - ESSENTIAL (PRIMARY) HYPERTENSION Qualifiers: (4) Diabetes mellitus Assessment/Plan: -same meds -bgm Code(s): E11.9 - TYPE 2 DIABETES MELLITUS WITHOUT COMPLICATIONS
[2018-07-04] MEDS ORDERED: APIXABAN 5 MG TABLET PO ONE (09:47)
[2018-07-04] MEDS ORDERED: traMADol HCL 50 MG TABLET ONE ×2 (09:49→18:37)
[2018-07-04] MEDS: ASPIRIN 81 MG CHEWABLE TABLETS PO SCH (10:03)
[2018-07-04] MEDS: PANTOPRAZOLE 40 MG TABLET (FP) PO SCH (10:03)
[2018-07-04] MEDS: traMADol HCL 50 MG TABLET PO PRN ×2 (10:03→18:35)
[2018-07-04] MEDS: HEPARIN NA (PORCINE) 5,000 UNITS/ML 1ML VIAL SQ SCH ×2 (10:03→22:30)
[2018-07-04] MEDS: APIXABAN 5 MG TABLET PO SCH ×2 (10:03→22:30)
--- NOTE | 2018-07-04 10:27 | CON.CARD ---
Consult Consult Specialty:: Cardiology Referred by:: Dr. Swan Reason for Consultation:: chest pain - History of Present Illness Chief Complaint: chest pain History of Present Illness: 83 year old female history of pulmonary HTN, CAD, HLD, NIDDM, carotid stenosis , HTN, aortic insufficiency, h/o PE(on Eliquis), shingles, and GERD admitted with dizziness/lightheadedness and near syncope, always while standing or starting to walk noted to be orthostatic, admitted again with similar complaints and normal Echo and vascular study now admitted with R sided chest pain and back pain. Pt seen and examined today in nad. states that yesterday while at rest she began having R sided back pain that then began radiating around to the R side of her chest pain. states that it started while lying in bed when she went to turn in bed. states it is exacerbated by turning side to side in bed. denies any sob, palpitations, pnd, orthopnea. CTA chest done in ER showed no PE Echocardiogram 12/20/16 nlef FCDAOV, mild AI/MR/PI - History Source History Provided By: Patient, Medical Record Limitations to Obtaining History: No Limitations - Past Medical History Cardio/Vascular: Yes: Pulmonary Hypertension, CAD (reported CAD), HTN, Hyperlipdemia, Aortic Insufficiency Pulmonary: Yes: Pulmonary Embolus (following ~50 years ago, and again in 2013 while hospitalzied for shingles per patient's report) Gastrointestinal: Yes: GERD Endocrine: Yes: Diabetes Mellitus, Other (mutlinodular goitre) - Past Surgical History Past Surgical History: Yes: (x5), Hysterectomy (JANINE ~ 40 years ago) - Alcohol/Substance Use Hx Alcohol Use: No History of Substance Use: reports: None - Smoking History Smoking history: Never smoked Have you smoked in the past 12 months: No Aproximately how many cigarettes per day: 0 - Social History Usual Living Arrangement: Alone (in apartment without stairs to elevator; previously Independent in ADLs, has assistance in IADLs from daughter, has both cane and Rollator which she uses intermittently) Home Medications - Allergies Allergies/Adverse Reactions: Allergies Allergy/AdvReac Type Severity Reaction Status Date / Time lactose AdvReac Severe Verified 07/03/18 22:32 - Home Medications Home Medications: Ambulatory Orders Aspirin [ASA -] 81 mg PO DAILY #0 tab.chew 12/14/11 Folic Acid - 1 mg PO DAILY 07/06/13 Atorvastatin Ca [Lipitor] 10 mg PO HS 07/27/14 Glimepiride [Amaryl] 4 mg PO DAILY 08/14/16 Pantoprazole Sodium [Protonix -] 40 mg PO DAILY #30 08/19/16 Apixaban [Eliquis] 5 mg PO BID #30 tablet MDD 2 12/24/16 Family Disease History - Family Disease History Family Disease History: Diabetes: Sister, Heart Disease: Brother, [place]: Father ( colon cancer), Sister Review of Systems - Review of Systems Constitutional: denies: No Symptoms, Chills, Diaphoresis, Fever, Lethargy, Loss of Appetite, Malaise, Night Sweats, Unintentional Wgt. Loss, Weakness, Other Eyes: denies: No Symptoms, Blind Spots, Blurred Vision, Double Vision, Eye Pain , Floaters, Photophobia, Recent Change in Vision, Other HENT: denies: No Symptoms, Difficult Swallowing, Ear Discharge, Ear Pain, Epistaxis, Gingival Bleeding, Hearing Loss, Mouth Swelling, Nasal Congestion, Ocular Prosthesis, Throat Pain, Toothache, Ringing in Ears, Other Neck: denies: No Symptoms, Decreased ROM, Lumps, Pain on Movement, Stiffness, Swollen Glands, Tenderness, Other Cardiovascular: reports: Chest Pain. denies: No Symptoms, Edema, Palpitations, Shortness of Breath, Other Respiratory: denies: No Symptoms, Cough, Exercise Intolerance, Hemoptysis, Orthopnea, PND, Snoring, SOB, SOB on Exertion, Wheezing, Other Gastrointestinal: denies: No Symptoms, Abdominal Pain, Bloating, Constipation, Diarrhea, Dysphagia, Indigestion, Melena, Nausea, Rectal Bleeding, Vomiting, Vomiting Blood, Other Genitourinary: denies: No Symptoms, Burning, Discharge, Dysuria, Flank Pain, Frequency, Hematuria, Incontinence, Lesions, Menses, Pain, Testicular Mass, Testicular Pain, Testicular Swelling, Urgency, Vaginal Bleeding, Other Breasts: denies: No Symptoms Reported, See HPI, Breast Implants, Discharge from Nipple, Lumps, Pain, Skin Changes, Other Musculoskeletal: denies: No Symptoms, Back Pain, Crepitus, Decreased ROM, Extremity Pain, Joint Pain, Joint Swelling, Muscle Pain, Muscle Cramps, Muscle Weakness, Other Integumentary: denies: No Symptoms, Blister, Bruising, Change in Color, Eczema, Erythema, Incision, Lesions, Lump, Pallor, Pruritis, Rash, Wound, Other Neurological: denies: No Symptoms, Change in LOC, Change in Speech, Confusion, Dizziness, Headache, Incoordination, Numbness, Parasthesia, Pre-Existing Deficit , Seizure, Syncope, Tremors, Unsteady Gait, Weakness, Other Endocrine: denies: No Symptoms, Excessive Sweating, Flushing, Increased Hunger, Increased Thirst, Intolerance to Cold, Intolerance to Heat, Unexplained Weight Gain, Unexplained Weight Loss, Other Hematology/Lymphatic: denies: No Symptoms, Easily Bruised, Excessive Bleeding, Swollen Glands, Other Psychiatric: denies: No Symptoms, Altered Sleep Pattern, Anxiety, Depression, Hallucinations, Panic, Paranoia, Suicidal, Other - Risk Factors Known Risk Factors: Yes: Age, Hypercholesterolemia, Hypertension Vital Signs: Vital Signs Temperature 98.3 F 07/04/18 08:22 Pulse Rate 109 H 07/04/18 08:22 Respiratory Rate 18 07/04/18 08:22 Blood Pressure 158/90 07/04/18 10:05 O2 Sat by Pulse Oximetry (%) 98 07/04/18 08:22 Constitutional: Yes: No Distress, Calm Eyes: Yes: Conjunctiva Clear, EOM Intact HENT: Yes: Atraumatic, Normocephalic Neck: No: Supple, Trachea Midline Respiratory: Yes: Regular, CTA Bilaterally. No: Rales, Rhonchi, SOB, Wheezes Gastrointestinal: Yes: Normal Bowel Sounds, Soft. No: Distention, Tenderness Cardiovascular: Yes: Regular Rate and Rhythm. No: Bradycardia, Tachycardia, Pulse Irregular, Gallop, Rub, Varicosities JVD: No Carotid Bruit: No PMI: Non-Displaced Heart Sounds: Yes: S1, S2. No: Split S2, S3, S4, Clicks, Gallop, Rub, Bruit Murmur: No: Systolic Murmur, Diastolic Murmur Musculoskeletal: Yes: WNL Extremities: Yes: WNL Edema: No Peripheral Pulses WNL: Yes Peripheral Pulses: 2+ Left Doralis Pedis, 2+ Right Dorsalis Pedis Neurological: Yes: Alert, Oriented Psychiatric: Yes: Alert, Oriented - Other Data Labs, Other Data: CBC, BMP 07/03/18 13:58 07/03/18 13:58 INR, PTT INR 1.19 (0.83-1.09) H 07/03/18 13:58 Troponin, BNP 07/03/18 07/03/18 13:58 22:17 Troponin I < 0.02 < 0.02 Troponin, BNP 07/03/18 07/03/18 13:58 22:17 Troponin I < 0.02 < 0.02 ekg-nsr 75bpm, apcs, nonspecific St abnl Imaging - Results Chest X-ray: Report Reviewed, Image Reviewed EKG: Report Reviewed, Image Reviewed Other: Report Reviewed, Image Reviewed Assessment/Plan 83 year old female history of pulmonary HTN, CAD, HLD, NIDDM, carotid stenosis , HTN, aortic insufficiency, h/o PE(on Eliquis), shingles, and GERD admitted with dizziness/lightheadedness and near syncope, always while standing or starting to walk noted to be orthostatic, admitted again with similar complaints and normal Echo and vascular study now admitted with R sided chest pain and back pain. Pt seen and examined today in nad. states that yesterday while at rest she began having R sided back pain that then began radiating around to the R side of her chest pain. states that it started while lying in bed when she went to turn in bed. states it is exacerbated by turning side to side in bed. denies any sob, palpitations, pnd, orthopnea. CTA chest done in ER showed no PE Echocardiogram 12/20/16 nlef FCDAOV, mild AI/MR/PI Chest pain-atypical, right sided back pain radiating to R chest -reproducible on movements of upper body -unlikely ACS -cardiac enzymes wnl x 2 -ekg shows no sig ischemia -CTA chest showed no PE -pt is already on ASA, Lipitor -on Eliquis due to h/o PE -pain likely consistent with MSK pain -can hold off on additional cardiac work up at this time -pt can be followed as outpatient. Please call with any additional questions.
--- NOTE | 2018-07-04 14:06 | PN ---
Progress Note (short form) - Note Progress Note: PULMONARY CONSULTATION DICTATED 07/04/18 IMP CHEST PAIN LIKELY MUSCULOSKELETAL H/O RECURRENT PULMONARY EMBOLI HTN DM PULMONARY HTN HLD PLAN ELIQUIS ANALGESICS CE TITRATE BP MEDS MONITOR BLOOD SUGARS DR FERRELL Problem List - Problems (1) Back pain Code(s): M54.9 - DORSALGIA, UNSPECIFIED (2) Chest pain Code(s): R07.9 - CHEST PAIN, UNSPECIFIED (3) HTN (hypertension) Code(s): I10 - ESSENTIAL (PRIMARY) HYPERTENSION Qualifiers: (4) CAD (coronary artery disease) Code(s): I25.10 - ATHSCL HEART DISEASE OF [place] CORONARY ARTERY W/O ANG PCTRS (5) Diabetes mellitus Code(s): E11.9 - TYPE 2 DIABETES MELLITUS WITHOUT COMPLICATIONS (6) Exertional dyspnea Code(s): R06.09 - OTHER FORMS OF [place]SP[place] (7) HLD (hyperlipidemia) Code(s): E78.5 - HYPERLIPIDEMIA, UNSPECIFIED (8) Multinodular goiter Code(s): E04.2 - NONTOXIC MULTINODULAR GOITER (9) Pulmonary embolism Code(s): I26.99 - OTHER PULMONARY EMBOLISM WITHOUT ACUTE COR PULMONALE (10) Pulmonary hypertension Code(s): I27.2 - OTHER SECONDARY PULMONARY HYPERTENSION * DO NOT USE *
[2018-07-04] MEDS ORDERED: INSULIN (NOVOLOG) ASPART 100 UNITS/ML 10ML VIAL ONE (14:22)
[2018-07-04] MEDS: ALBUTEROL SO4 2.5/IPRATROPIUM 0.5 INH SOL 3 ML VIAL.NEB. NEB SCH ×3 (14:37→16:05)
[2018-07-04] MEDS: INSULIN SLIDING SCALE (NOVOLOG) 1 VIAL SQ SCH ×2 (14:37→18:34)
[2018-07-04] MEDS ORDERED: ALBUTEROL SO4 2.5/IPRATROPIUM 0.5 INH SOL 3 ML VIAL.NEB. NEB ONE (15:20)
--- NOTE | 2018-07-04 16:54 | EKG ---
Test Reason : Blood Pressure : / mmHG Vent. Rate : 075 BPM Atrial Rate : 075 BPM P-R Int : 202 ms QRS Dur : 074 ms QT Int : 408 ms P-R-T Axes : 038 -31 026 degrees QTc Int : 455 ms SINUS RHYTHM WITH PREMATURE ATRIAL COMPLEXES LEFT AXIS DEVIATION NONSPECIFIC ST ABNORMALITY ABNORMAL ECG Confirmed by MD TONE, KAM ([id number]) on 07/04/2018 4:54:27 PM Referred By: Confirmed By:KAM WAYNE MD
[2018-07-04] MEDS: ATORVASTATIN CA 10 MG TABLET (FP) PO SCH (22:30)
--- NOTE | 2018-07-04 23:31 | CONSULT ---
Consult Consult Specialty:: endocrine Referred by:: dr.annabi lange Reason for Consultation:: diabetes mellitus 2/ thyroid goiter - History of Present Illness Chief Complaint: chest pain shortness of breath History of Present Illness: 83 year old female with a significant past medical history of dm 2,goiter, hypertension, CAD, PE, chronic SOB,aortic insufficiency,right jugular thrombosis , carotid stenosis and d who presented to the emergency department with chest pain . The patient reports that her chest pain is right sided and radiates to her right back. She describes her chest pain as a sharp. she admits not taking eliquis regular meds for some time. - Past Medical History Cardio/Vascular: Yes: Pulmonary Hypertension, CAD (reported CAD), HTN, Hyperlipdemia, Aortic Insufficiency Pulmonary: Yes: Pulmonary Embolus (following ~50 years ago, and again in 2013 while hospitalzied for shingles per patient's report) Gastrointestinal: Yes: GERD Endocrine: Yes: Diabetes Mellitus, Other (mutlinodular goitre) - Past Surgical History Past Surgical History: Yes: (x5), Hysterectomy (JANINE ~ 40 years ago) - Alcohol/Substance Use Hx Alcohol Use: No History of Substance Use: reports: None - Smoking History Smoking history: Never smoked Have you smoked in the past 12 months: No Aproximately how many cigarettes per day: 0 - Social History Usual Living Arrangement: Alone (in apartment without stairs to elevator; previously Independent in ADLs, has assistance in IADLs from daughter, has both cane and Rollator which she uses intermittently) Home Medications - Allergies Allergies/Adverse Reactions: Allergies Allergy/AdvReac Type Severity Reaction Status Date / Time lactose AdvReac Severe Verified 07/03/18 22:32 - Home Medications Home Medications: Ambulatory Orders Aspirin [ASA -] 81 mg PO DAILY #0 tab.chew 12/14/11 Folic Acid - 1 mg PO DAILY 07/06/13 Atorvastatin Ca [Lipitor] 10 mg PO HS 07/27/14 Glimepiride [Amaryl] 4 mg PO DAILY 08/14/16 Pantoprazole Sodium [Protonix -] 40 mg PO DAILY #30 08/19/16 Apixaban [Eliquis] 5 mg PO BID #30 tablet MDD 2 12/24/16 Family Disease History - Family Disease History Family Disease History: Diabetes: Sister, Heart Disease: Brother, [place]: Father ( colon cancer), Sister Review of Systems - Review of Systems Constitutional: reports: Lethargy, Weakness Eyes: reports: No Symptoms HENT: reports: No Symptoms Neck: reports: No Symptoms Cardiovascular: reports: Shortness of Breath Respiratory: reports: Exercise Intolerance, SOB on Exertion Gastrointestinal: reports: Bloating Genitourinary: reports: No Symptoms Musculoskeletal: reports: Muscle Cramps, Muscle Weakness Integumentary: reports: No Symptoms Neurological: reports: Weakness Endocrine: reports: Unexplained Weight Gain Physical Exam Vital Signs: Vital Signs Temperature 98.3 F 07/04/18 08:22 Pulse Rate 80 07/04/18 18:33 Respiratory Rate 18 07/04/18 18:33 Blood Pressure 160/94 07/04/18 18:33 O2 Sat by Pulse Oximetry (%) 95 07/04/18 18:33 Constitutional: Yes: Anxious Eyes: Yes: EOM Intact HENT: Yes: Normocephalic Neck: Yes: Decreased ROM Cardiovascular: Yes: Tachycardia, Murmur Respiratory: Yes: SOB, Tachypnea Gastrointestinal: Yes: Soft ...Rectal Exam: Yes: Deferred Renal/: Yes: WNL Extremities: Yes: WNL Neurological: Yes: Alert, Oriented Labs: CBC, BMP 07/03/18 13:58 07/03/18 13:58 Problem List - Problems (1) Diabetes mellitus with hyperosmolarity Code(s): E11.00 - TYPE 2 DIAB W HYPROSM W/O NONKET HYPRGLY-HYPROS COMA ([facility]) (2) Back pain Code(s): M54.9 - DORSALGIA, UNSPECIFIED (3) HTN (hypertension) Code(s): I10 - ESSENTIAL (PRIMARY) HYPERTENSION Qualifiers: (4) Abdominal pain Code(s): R10.9 - UNSPECIFIED ABDOMINAL PAIN (5) Ataxia Code(s): R27.0 - ATAXIA, UNSPECIFIED Assessment/Plan Current Active Problems Back pain (Acute) Chest pain (Acute) HTN (hypertension) (Acute) dm 2 hyperglycemia diet non compliance thrombosis jugular vein hyperlipidemia multinodular goiter Laboratory Results - last 24 hr 07/04/18 07/04/18 13:34 21:07 POC Glucometer [phone] Creatine Kinase 124 Troponin I < 0.02 Laboratory Tests 02/19/16 02/19/16 02/20/16 16:59 23:01 05:28 Sodium Potassium Chloride Carbon Dioxide Anion Gap BUN Creat Clearance w eGFR POC Glucometer 189 198 147 Random Glucose 02/20/16 07/03/18 11:53 13:58 Sodium 139 Potassium 4.1 Chloride 106 Carbon Dioxide 26 Anion Gap 7 L BUN 12 Creat Clearance w eGFR 42.70 POC Glucometer 168 Random Glucose 226 H plan; bgm qid novolog insulin januvia 50mg daily glimiperide 4mg daily metformin 500mg bid ck hba1c tsh free t4
[2018-07-05] MEDS ORDERED: APIXABAN 5 MG TABLET PO ONE (01:00)
[2018-07-05] MEDS ORDERED: HEPARIN NA (PORCINE) 5,000 UNITS/ML 1ML VIAL ONE (01:00)
[2018-07-05] MEDS ORDERED: ATORVASTATIN CA 10 MG TABLET (FP) ONE (01:00)
[2018-07-05] MEDS ORDERED: INSULIN REGULAR HUMAN 100 UNITS/ML *VIAL ONE (01:01)
[2018-07-05] MEDS: ALBUTEROL SO4 2.5/IPRATROPIUM 0.5 INH SOL 3 ML VIAL.NEB. NEB SCH (01:06)
[2018-07-05] MEDS: INSULIN SLIDING SCALE (NOVOLOG) 1 VIAL SQ SCH ×2 (01:07→06:19)
[2018-07-05] MEDS: traMADol HCL 50 MG TABLET PO PRN ×2 (02:12→09:28)
[2018-07-05 03:17] VITALS: BMI 27.3
[2018-07-05] MEDS: GLIMEPIRIDE 4 MG TABLET (FP) PO SCH (06:18)
[2018-07-05] MEDS ORDERED: metFORMIN HCL 500 MG TABLET (FP) PO SCH (07:00)
[2018-07-05] MEDS ORDERED: sitaGLIPtin PHOSPHATE 50 MG TABLET PO SCH (07:00)
--- NOTE | 2018-07-05 09:06 | CONS ---
DATE OF CONSULTATION: 07/04/2018 PULMONARY CONSULTATION REFERRING PHYSICIAN: Maldonado Whaley M.D. HISTORY OF PRESENT ILLNESS: The patient is an 83-year-old black female with a past medical history of hypertension, ASHD, pulmonary embolism x2, first time 50 years ago and most recently in 2013, status post section, history of aortic insufficiency, carotid stenosis, diabetes, admitted to [facility] with a complaint of chest pain, increased with movement. The patient states she was well until Tuesday, the day prior to admission, when she woke up in the morning complaining of right-sided chest pain, starting in the back and radiating to the right side of the chest. This increases with movement but not with inspiration. She denies any cough, fever, chills, nausea, vomiting or diaphoresis. The patient states she took 325 mg of aspirin prior to arriving in the ER with no improvement. She does complain of shortness of breath when walking up inclines . She denies orthopnea or PND. She is a nonsmoker. She denies any COPD or asthma in the past. There is no history of occupational exposure to chemicals or fumes. PAST MEDICAL HISTORY: History of pulmonary embolism maintained on Eliquis, first time following a section roughly 50 years ago and again in 2013 when she was hospitalized for shingles, pulmonary hypertension, ASHD, hypertension, hyperlipidemia, aortic insufficiency, diabetes, multinodular goiter. REVIEW OF SYSTEMS: No orthopnea or PND. Positive chest pain. No cough, no hemoptysis, no abdominal pain. No fever, no chills. No lower extremity edema. CURRENT MEDICATIONS: Eliquis, heparin 5000 q. 12, DuoNeb, Lipitor, NovoLog, aspirin, Ultram, Protonix, Amaryl. PHYSICAL EXAMINATION: General: The patient is a well-developed, well-nourished female, awake and alert, in no acute distress. Vital Signs: She is afebrile. Blood pressure is 158/90, respiratory rate 18, O2 saturation is 98% on room air. HEENT: Head is normocephalic, atraumatic. Neck: Supple. Heart: Regular, S1, S2. Chest: Clear. Abdomen: Soft. Bowel sounds are positive. Extremities: No cyanosis or edema. LABORATORY: WBC is 3.3, hemoglobin 11.8, hematocrit 36.8, platelet count of 242,000. INR is 1.19. BUN 12, creatinine 1.2. A chest CTA shows no evidence of pulmonary emboli. No masses appreciated. IMPRESSION: 1. Chest pain, most likely musculoskeletal in etiology. No evidence of pulmonary emboli or acute pulmonary pathology. 2. Hypertension. 3. History of recurrent pulmonary embolus on Eliquis. 4. Pulmonary hypertension. 5. Aortic insufficiency. PLAN: 1. Continue anticoagulation. 2. Analgesics. 3. Monitor blood pressure; titrate blood pressure medications. 4. Obtain a followup echocardiogram. 5. Obtain cardiac enzymes. CHAUNCEY FERRELL M.D. [id number]
[2018-07-05 09:14] VITALS: BP 166/94; PULSE 76; TEMP 97.6
[2018-07-05] MEDS ORDERED: LISINOPRIL 20 MG TABLET (FP) PO ONE (09:14)
--- NOTE | 2018-07-05 09:18 | DS ---
Physical Examination Vital Signs: Vital Signs Temperature 97.6 F 07/05/18 09:13 Pulse Rate 76 07/05/18 09:13 Respiratory Rate 18 07/05/18 09:13 Blood Pressure 166/94 07/05/18 09:13 O2 Sat by Pulse Oximetry (%) 98 07/05/18 01:30 Cardiovascular: Yes: Regular Rate and Rhythm Respiratory: Yes: Regular, CTA Bilaterally Gastrointestinal: Yes: Normal Bowel Sounds, Soft Labs: CBC, BMP 07/03/18 13:58 07/03/18 13:58 Discharge Summary Reason For Visit: CHEST PAIN Current Active Problems Back pain (Acute) Chest pain (Acute) Diabetes mellitus with hyperosmolarity (Acute) HTN (hypertension) (Acute) Hospital Course: - Problems (1) Back pain Assessment/Plan: cta no pe maybe muscular pulm and cardio tramadol helping Code(s): M54.9 - DORSALGIA, UNSPECIFIED (2) Chest pain Assessment/Plan: -as above ce negative Code(s): R07.9 - CHEST PAIN, UNSPECIFIED (3) HTN (hypertension) Assessment/Plan: -monitor Code(s): I10 - ESSENTIAL (PRIMARY) HYPERTENSION Qualifiers: (4) Diabetes mellitus Assessment/Plan: -same meds -bgm Code(s): E11.9 - TYPE 2 DIABETES MELLITUS WITHOUT COMPLICATIONS - Instructions Referrals: Maldonado Whaley MD [Primary Care Provider] - 1 Week Disposition: HOME - Home Medications Comprehensive Discharge Medication List: Ambulatory Orders Aspirin [ASA -] 81 mg PO DAILY #0 tab.chew 12/14/11 Folic Acid - 1 mg PO DAILY 07/06/13 Atorvastatin Ca [Lipitor] 10 mg PO HS 07/27/14 Glimepiride [Amaryl] 4 mg PO DAILY 08/14/16 Pantoprazole Sodium [Protonix -] 40 mg PO DAILY #30 08/19/16 Apixaban [Eliquis] 5 mg PO BID #30 tablet MDD 2 07/05/18 Benazepril HCl [Lotensin] 20 mg PO DAILY #30 tablet 07/05/18 Diclofenac Epolamine [Flector] 1 each TD BID #30 patch.td12 07/05/18 traMADol HCL [Ultram -] 50 mg PO Q8H PRN #21 tablet MDD 3 07/05/18
[2018-07-05] MEDS: APIXABAN 5 MG TABLET PO SCH (09:28)
[2018-07-05] MEDS: ASPIRIN 81 MG CHEWABLE TABLETS PO SCH (09:28)
[2018-07-05] MEDS: HEPARIN NA (PORCINE) 5,000 UNITS/ML 1ML VIAL SQ SCH (09:29)
[2018-07-05] MEDS: PANTOPRAZOLE 40 MG TABLET (FP) PO SCH (09:29)
== END 2018-07-05 10:05 | disposition home or self-care (01) ==
LOC: JER 13:16 → JERBED 18:35 → INTOOBSV 18:35 → J4W 07-05 01:56
PROVIDERS: ADMIT Family Medicine; ATTEND Family Medicine
PROC: 3E033NZ Introduction of Analgesics, Hypnotics, Sedatives into Peripheral Vein, Percutaneous Approach (ICD-10-PCS; principal; 2018-07-03)
PROC: 3E013GC Introduction of Other Therapeutic Substance into Subcutaneous Tissue, Percutaneous Approach (ICD-10-PCS; 2018-07-03)
PROC: 3E0F7GC Introduction of Other Therapeutic Substance into Respiratory Tract, Via Natural or Artificial Opening (ICD-10-PCS; 2018-07-03)
DX: R07.89 Other chest pain (principal); I10 Essential (primary) hypertension; I25.10 Atherosclerotic heart disease of native coronary artery without angina pectoris; I35.1 Nonrheumatic aortic (valve) insufficiency; I65.29 Occlusion and stenosis of unspecified carotid artery; I26.99 Other pulmonary embolism without acute cor pulmonale; I27.20 Pulmonary hypertension, unspecified; E78.5 Hyperlipidemia, unspecified; E11.00 Type 2 diabetes mellitus with hyperosmolarity without nonketotic hyperglycemic-hyperosmolar coma (NKHHC); E04.2 Nontoxic multinodular goiter; M54.9 Dorsalgia, unspecified; R27.0 Ataxia, unspecified; R10.9 Unspecified abdominal pain; R06.09 Other forms of dyspnea; Z79.82 Long term (current) use of aspirin; Z79.84 Long term (current) use of oral hypoglycemic drugs; Z79.01 Long term (current) use of anticoagulants; Z91.011 Allergy to milk products
CPT/HCPCS: 36415; 71046-TC-FY; 71275-TC; 80053; 82550; 82553; 82962; 83036; 83735; 84439; 84443; 84484; 85025; 85610; 93005; 93010; 94640; 96372; 96374; 99285-25; G0378; J0131; J1644

== ENCOUNTER 2020-09-21 17:16 | Emergency (ER) | payer BC ==
[2020-09-21 17:33] VITALS: BMI 24.9
[2020-09-21] MEDS ORDERED: ACETAMINOPHEN 1000 MG/100 ML VIAL (NON FORMULARY) IVPB ONE (19:13)
[2020-09-21 19:24] LABS: BASO % 1.3 % (0-2.0); HEMATOCRIT 32.7 % (32.4-45.2); HEMOGLOBIN 10.5 GM/dL (10.7-15.3); MCH 25.2 pg (25.7-33.7); MCHC 32.2 g/dl (32.0-36.0); MEAN CELL VOLUME 78.1 fl (80-96); MEAN PLT VOLUME 9.6 fl (7.5-11.1); MONO % 9.1 % (3.8-10.2); NEUT % 52.6 % (42.8-82.8); PLATELET COUNT 256 K/MM3 (134-434); RBC 4.19 M/mm3 (3.60-5.2); RDW 15.9 % (11.6-15.6); WHITE BLOOD COUNT 4.6 K/mm3 (4.0-10.0)
[2020-09-21 19:33] LABS: INR 1.21 (0.83-1.09); PROTHROMBIN TIME (PATIENT) 14.6 SEC (9.7-13.0)
[2020-09-21 19:36] LABS: ACTIVATED PTT 34.1 SECONDS (25.2-36.5)
[2020-09-21 19:48] LABS: CHLORIDE 111 mmol/L (98-107); SODIUM 140 mmol/L (136-145)
[2020-09-21 19:50] LABS: CALCIUM 9.1 mg/dL (8.5-10.1)
[2020-09-21 19:52] LABS: ALBUMIN 3.5 g/dl (3.4-5.0); ANION GAP 5 MMOL/L (8-16); BLOOD UREA NITROGEN 14.7 mg/dL (7-18); CO2 25 mmol/L (21-32); GLUCOSE,RANDOM 83 mg/dL (74-106)
[2020-09-21 19:54] LABS: CREATININE 1.5 mg/dL (0.55-1.3); SGOT/AST 16 U/L (15-37); SGPT/ALT 11 U/L (13-61)
[2020-09-21] MEDS ORDERED: SODIUM CHLORIDE 0.9% 500 ML INFUS.BAG IV ONE (19:54)
[2020-09-21 19:55] LABS: BILIRUBIN,TOTAL 0.4 mg/dL (0.2-1); TOT PROT 7.5 g/dl (6.4-8.2)
[2020-09-21 19:57] LABS: ALK PHOS 75 U/L (45-117)
[2020-09-21 20:00] LABS: N-TERMINAL BNP 419.4 pg/ml (5-450)
[2020-09-21] MEDS ORDERED: ACETAMINOPHEN INJECTION 100 ML IVPB ONE (21:07)
[2020-09-21] MEDS ORDERED: ESMOLOL 2500 MG/250 ML 2,500,000 MCG/250 ML INFUS.BAG IVPB SCH (22:00)
[2020-09-21] MEDS ORDERED: ESMOLOL 2500 MG/250 ML 2,500,000 MCG/250 ML INFUS.BAG IVPB ONE (22:11)
[2020-09-21] MEDS ORDERED: ESMOLOL HCL 100 MG/10 ML VIAL IVPUSH ONE (22:15)
[2020-09-21] MEDS ORDERED: NICARDIPINE 25 MG in DEXTROSE 5%-WATER - 240 ML IVPB SCH (23:00)
[2020-09-21] MEDS ORDERED: niCARdipine HCL 25 MG/10 ML AMPUL IVPB ONE (23:07)
[2020-09-21 23:26] VITALS: BP 197/92; PULSE 63; TEMP 97.9
== END 2020-09-21 23:27 | disposition short-term general hospital (02) ==
LOC: JER 17:16
PROC: 3E033NZ Introduction of Analgesics, Hypnotics, Sedatives into Peripheral Vein, Percutaneous Approach (ICD-10-PCS; principal; 2020-09-21)
PROC: 3E033GC Introduction of Other Therapeutic Substance into Peripheral Vein, Percutaneous Approach (ICD-10-PCS; 2020-09-21)
DX: I71.9 Aortic aneurysm of unspecified site, without rupture (principal); R07.9 Chest pain, unspecified
CPT/HCPCS: 36415; 71045-TC-FY; 71275-TC; 80053; 82550; 83880; 84484; 85025; 85610; 85730; 93005; 93010; 99285-25; C9803; J0131; Q9967; U0003; U0005

== ENCOUNTER 2022-04-14 07:57 | Emergency (ER) | payer BC ==
[2022-04-14 08:25] VITALS: BP 151/71; PULSE 86; RESP 18; TEMP 98.2; BMI 24.9
[2022-04-14 11:04] LABS: BASO % 0.9 % (0-2.0); EOS % 3.3 % (0-4.5); HEMATOCRIT 32.3 % (32.4-45.2); HEMOGLOBIN 10.4 GM/dL (10.7-15.3); INR 1.09 (0.83-1.09); LYMPH % 30.8 % (8-40); MCH 24.9 pg (25.7-33.7); MCHC 32.3 g/dl (32.0-36.0); MEAN CELL VOLUME 77.2 fl (80-96); MEAN PLT VOLUME 8.2 fl (7.5-11.1); MONO % 10.7 % (3.8-10.2); NEUT % 54.3 % (42.8-82.8); PLATELET COUNT 200 10^3/uL (134-434); PROTHROMBIN TIME (PATIENT) 12.6 SEC (9.7-13.0); RBC 4.18 M/mm3 (3.60-5.2); RDW 15.2 % (11.6-15.6); WHITE BLOOD COUNT 3.7 K/mm3 (4.0-10.0)
[2022-04-14 11:21] LABS: CALCIUM 9.6 mg/dL (8.5-10.1)
[2022-04-14 11:22] LABS: ALBUMIN 3.6 g/dl (3.4-5.0); BLOOD UREA NITROGEN 19.2 mg/dL (7-18)
[2022-04-14 11:25] LABS: CREATININE 1.4 mg/dL (0.55-1.3)
[2022-04-14 11:27] LABS: BILIRUBIN,TOTAL 0.6 mg/dL (0.2-1); TOT PROT 7.5 g/dl (6.4-8.2)
== END 2022-04-14 11:47 | disposition home or self-care (01) ==
LOC: JER 07:57
DX: R04.0 Epistaxis (principal)
CPT/HCPCS: 36415; 80053; 85025; 85610; 86850; 86900; 86901; 99283-25